=== PATIENT | female | born 1950 | race Caucasian/White ===

== ENCOUNTER 2020-02-01 01:32 | Inpatient (IN) | payer MEDICARE, OTHER ==
[2020-02-01 01:50] LABS: Glucose,Whole Blood 265 mg/dL (75-99)
[2020-02-01] MEDS ORDERED: SODIUM CHLORIDE 0.9% 1,000 ML IV ONE (02:01)
--- NOTE | 2020-02-01 02:05 | ED ---
Altered Mental Status HPI - General Chief Complaint: Altered Mental Status Stated Complaint: Altered Mental Status Time Seen by Provider: 02/01/20 01:38 Source: patient, EMS Mode of arrival: EMS Limitations: altered mental status - History of Present Illness Initial Comments: Indira is a 70 yo female brought to the ER today for altered mental status. Upon arrival patient is awake, alert to self only, repeatedly states that she needs to leave to get to choir practice. Other arrived at bedside to provide further history she reports her mother lives with her due to a stroke that she had in October of this year, stroke resulted in expressive aphasia. She reports that mother seemed to be in usual state of health throughout the day yesterday, went to bed around 7 PM, woke up somewhat agitated didn't seem to be herself at which time EMS was called. Daughter states that her mother hasn't had any labs since she was hospitalized in October but believes they were normal then. Uncertain of mother's further history. States the mother lost her fingers in a traumatic injury not due to any vasculopathy. - Related Data Allergies Allergy/AdvReac Type Severity Reaction Status Date / Time No Known Allergies Allergy Verified 02/01/20 02:02 Review of Systems ROS Statement: Those systems with pertinent positive or pertinent negative responses have been documented in the HPI. ROS Other: All systems not noted in ROS Statement are negative. Past Medical History Past Medical History: Unable to Obtain History of Any Multi-Drug Resistant Organisms: Unobtainable Past Surgical History: Unable to Obtain Past Psychological History: Unable to Obtain Past Alcohol Use History: Unable to Obtain Past Drug Use History: Unable to Obtain General Exam - General Exam Comments Initial Comments: Physical Exam GENERAL: Elderly female in no obvious distress, does not appear to be in pain Appears dehydrated HENT: Normocephalic, Atraumatic. EYES: PERRL, EOMI Conjunctival pallor PULMONARY: Unlabored respirations. No audible rales rhonchi or wheezing was noted. CARDIOVASCULAR: RRR ABDOMEN: Soft and nontender with normal bowel sounds. SKIN: Skin is clear with no lesions or rashes and otherwise unremarkable. Skin dry with tenting ntoed : Normal external genitalia NEUROLOGIC: Patient is alert and oriented to self Non-sensical speech MUSCULOSKELETAL: Normal extremities with adequate strength and full range of motion. No lower extremity swelling or edema. Finger amputations bilateral hands PSYCHIATRIC: Unable to assess Limitations: altered mental status Course Vital Signs 02/01/20 02/01/20 02/01/20 01:37 03:27 04:07 Temperature 97.7 F 97.6 F Pulse Rate 65 65 63 Respiratory 16 16 16 Rate Blood Pressure 118/67 158/65 155/75 O2 Sat by Pulse 98 98 100 Oximetry 02/01/20 02/01/20 02/01/20 04:17 04:47 05:11 Temperature 96.2 F L Pulse Rate 83 84 74 Respiratory 16 17 17 Rate Blood Pressure 187/70 188/96 172/70 O2 Sat by Pulse 100 100 100 Oximetry 02/01/20 05:19 Temperature 97.0 F L Pulse Rate 84 Respiratory 20 Rate Blood Pressure 174/82 O2 Sat by Pulse 100 Oximetry Medical Decision Making - Medical Decision Making Patient was seen and evaluated, history was obtained from EMS, patient provides minimal history due to stroke expresses aphasia and altered mental status Labs EKG and imaging were obtained Labs with multiple significant abnormalities including significant anemia im provement of 6, elevated troponin at 2.5 Given the patient has a significant anemia, heparin will not be started for the elevated troponin, transfusion will be initiated CT angiography of the chest abdomen and pelvis was ordered to ensure there is no evidence of a dissection or active bleeding in the abdomen, this resulted with no acute findings Repeat EKGs with persistent ST depressions consistent with ischemia without signs of acute infarction Blood transfusion was initiated Patient care was discussed with cardiology service loss control consultant Dr. Harmon who agrees with and for supportive care, blood transfusion, nitro for hypertension, by mouth beta blockers repeat labs in the morning - Lab Data Result diagrams: 02/01/20 02:15 02/01/20 02:15 Lab Results 02/01/20 02/01/20 02/01/20 Range/Units 01:39 02:15 02:15 WBC 16.1 H (3.8-10.6) k/uL RBC 2.77 L (3.80-5.40) m/uL Hgb 6.0 L* (11.4-16.0) gm/dL Hct 22.4 L (34.0-46.0) % MCV 80.6 (80.0-100.0) fL MCH 21.7 L (25.0-35.0) pg MCHC 26.9 L (31.0-37.0) g/dL RDW 17.0 H (11.5-15.5) % Plt Count 481 H (150-450) k/uL Neutrophils % 87 % Lymphocytes % 7 % Monocytes % 5 % Eosinophils % 0 % Basophils % 0 % Neutrophils # 14.0 H (1.3-7.7) k/uL Lymphocytes # 1.1 (1.0-4.8) k/uL Monocytes # 0.8 (0-1.0) k/uL Eosinophils # 0.1 (0-0.7) k/uL Basophils # 0.1 (0-0.2) k/uL Manual Slide Review Performed Polychromasia Present Hypochromasia Marked Poikilocytosis Moderate Poikilocytosis (manual Present Anisocytosis Slight Microcytosis Slight Target Cells Present PT (9.0-12.0) sec INR (<1.2) APTT (22.0-30.0) sec Sodium 140 (137-145) mmol/L Potassium 3.9 (3.5-5.1) mmol/L Chloride 111 H (98-107) mmol/L Carbon Dioxide 19 L (22-30) mmol/L Anion Gap 10 mmol/L BUN 18 H (7-17) mg/dL Creatinine 0.87 (0.52-1.04) mg/dL Est GFR (CKD-EPI)AfAm 78 (>60 ml/min/1.73 sqM) Est GFR (CKD-EPI)NonAf 67 (>60 ml/min/1.73 sqM) Glucose 247 H (74-99) mg/dL POC Glucose (mg/dL) 265 H (75-99) mg/dL POC Glu Cloth Folder Machine ID Paige Muir Calcium 8.4 (8.4-10.2) mg/dL Total Bilirubin 0.4 (0.2-1.3) mg/dL AST 177 H (14-36) U/L ALT 132 H (4-34) U/L Alkaline Phosphatase 111 (38-126) U/L Troponin I (0.000-0.034) ng/mL Total Protein 6.0 L (6.3-8.2) g/dL Albumin 3.4 L (3.5-5.0) g/dL Urine Color Urine Appearance (Clear) Urine pH (5.0-8.0) Ur Specific Barnard (1.001-1.035) Urine Protein (Negative) Urine Glucose (UA) (Negative) Urine Ketones (Negative) Urine Blood (Negative) Urine Nitrite (Negative) Urine Bilirubin (Negative) Urine Urobilinogen (<2.0) mg/dL Ur Leukocyte Esterase (Negative) Urine RBC (0-5) /hpf Urine WBC (0-5) /hpf Urine Opiates Screen (NotDetected) Ur Oxycodone Screen (NotDetected) Urine Methadone Screen (NotDetected) Ur Propoxyphene Screen (NotDetected) Ur Barbiturates Screen (NotDetected) U Tricyclic Antidepress (NotDetected) Ur Phencyclidine Scrn (NotDetected) Ur Amphetamines Screen (NotDetected) U Methamphetamines Scrn (NotDetected) U Benzodiazepines Scrn (NotDetected) Urine Cocaine Screen (NotDetected) U Marijuana (THC) Screen (NotDetected) Blood Type Blood Type Confirm Blood Type Recheck Bld Type Recheck Status Antibody Screen Crossmatch Spec Expiration Date 02/01/20 02/01/20 02/01/20 Range/Units 02:15 02:45 02:46 WBC (3.8-10.6) k/uL RBC (3.80-5.40) m/uL Hgb (11.4-16.0) gm/dL Hct (34.0-46.0) % MCV (80.0-100.0) fL MCH (25.0-35.0) pg MCHC (31.0-37.0) g/dL RDW (11.5-15.5) % Plt Count (150-450) k/uL Neutrophils % % Lymphocytes % % Monocytes % % Eosinophils % % Basophils % % Neutrophils # (1.3-7.7) k/uL Lymphocytes # (1.0-4.8) k/uL Monocytes # (0-1.0) k/uL Eosinophils # (0-0.7) k/uL Basophils # (0-0.2) k/uL Manual Slide Review Polychromasia Hypochromasia Poikilocytosis Poikilocytosis (manual Anisocytosis Microcytosis Target Cells PT (9.0-12.0) sec INR (<1.2) APTT (22.0-30.0) sec Sodium (137-145) mmol/L Potassium (3.5-5.1) mmol/L Chloride (98-107) mmol/L Carbon Dioxide (22-30) mmol/L Anion Gap mmol/L BUN (7-17) mg/dL Creatinine (0.52-1.04) mg/dL Est GFR (CKD-EPI)AfAm (>60 ml/min/1.73 sqM) Est GFR (CKD-EPI)NonAf (>60 ml/min/1.73 sqM) Glucose (74-99) mg/dL POC Glucose (mg/dL) (75-99) mg/dL POC Glu Cloth Folder Machine ID Calcium (8.4-10.2) mg/dL Total Bilirubin (0.2-1.3) mg/dL AST (14-36) U/L ALT (4-34) U/L Alkaline Phosphatase (38-126) U/L Troponin I 2.560 H* (0.000-0.034) ng/mL Total Protein (6.3-8.2) g/dL Albumin (3.5-5.0) g/dL Urine Color Yellow Urine Appearance Clear (Clear) Urine pH 5.5 (5.0-8.0) Ur Specific Barnard 1.021 (1.001-1.035) Urine Protein 1+ H (Negative) Urine Glucose (UA) Negative (Negative) Urine Ketones Negative (Negative) Urine Blood Small H (Negative) Urine Nitrite Negative (Negative) Urine Bilirubin Negative (Negative) Urine Urobilinogen 2.0 (<2.0) mg/dL Ur Leukocyte Esterase Negative (Negative) Urine RBC <1 (0-5) /hpf Urine WBC 1 (0-5) /hpf Urine Opiates Screen Not Detected (NotDetected) Ur Oxycodone Screen Not Detected (NotDetected) Urine Methadone Screen Not Detected (NotDetected) Ur Propoxyphene Screen Not Detected (NotDetected) Ur Barbiturates Screen Not Detected (NotDetected) U Tricyclic Antidepress Not Detected (NotDetected) Ur Phencyclidine Scrn Not Detected (NotDetected) Ur Amphetamines Screen Not Detected (NotDetected) U Methamphetamines Scrn Not Detected (NotDetected) U Benzodiazepines Scrn Detected H (NotDetected) Urine Cocaine Screen Not Detected (NotDetected) U Marijuana (THC) Screen Not Detected (NotDetected) Blood Type Blood Type Confirm A Negative Blood Type Recheck Bld Type Recheck Status Antibody Screen Crossmatch Spec Expiration Date 02/01/20 02/01/20 Range/Units 02:50 02:53 WBC (3.8-10.6) k/uL RBC (3.80-5.40) m/uL Hgb (11.4-16.0) gm/dL Hct (34.0-46.0) % MCV (80.0-100.0) fL MCH (25.0-35.0) pg MCHC (31.0-37.0) g/dL RDW (11.5-15.5) % Plt Count (150-450) k/uL Neutrophils % % Lymphocytes % % Monocytes % % Eosinophils % % Basophils % % Neutrophils # (1.3-7.7) k/uL Lymphocytes # (1.0-4.8) k/uL Monocytes # (0-1.0) k/uL Eosinophils # (0-0.7) k/uL Basophils # (0-0.2) k/uL Manual Slide Review Polychromasia Hypochromasia Poikilocytosis Poikilocytosis (manual Anisocytosis Microcytosis Target Cells PT 10.2 (9.0-12.0) sec INR 1.0 (<1.2) APTT 15.6 L (22.0-30.0) sec Sodium (137-145) mmol/L Potassium (3.5-5.1) mmol/L Chloride (98-107) mmol/L Carbon Dioxide (22-30) mmol/L Anion Gap mmol/L BUN (7-17) mg/dL Creatinine (0.52-1.04) mg/dL Est GFR (CKD-EPI)AfAm (>60 ml/min/1.73 sqM) Est GFR (CKD-EPI)NonAf (>60 ml/min/1.73 sqM) Glucose (74-99) mg/dL POC Glucose (mg/dL) (75-99) mg/dL POC Glu Cloth Folder Machine ID Calcium (8.4-10.2) mg/dL Total Bilirubin (0.2-1.3) mg/dL AST (14-36) U/L ALT (4-34) U/L Alkaline Phosphatase (38-126) U/L Troponin I (0.000-0.034) ng/mL Total Protein (6.3-8.2) g/dL Albumin (3.5-5.0) g/dL Urine Color Urine Appearance (Clear) Urine pH (5.0-8.0) Ur Specific Barnard (1.001-1.035) Urine Protein (Negative) Urine Glucose (UA) (Negative) Urine Ketones (Negative) Urine Blood (Negative) Urine Nitrite (Negative) Urine Bilirubin (Negative) Urine Urobilinogen (<2.0) mg/dL Ur Leukocyte Esterase (Negative) Urine RBC (0-5) /hpf Urine WBC (0-5) /hpf Urine Opiates Screen (NotDetected) Ur Oxycodone Screen (NotDetected) Urine Methadone Screen (NotDetected) Ur Propoxyphene Screen (NotDetected) Ur Barbiturates Screen (NotDetected) U Tricyclic Antidepress (NotDetected) Ur Phencyclidine Scrn (NotDetected) Ur Amphetamines Screen (NotDetected) U Methamphetamines Scrn (NotDetected) U Benzodiazepines Scrn (NotDetected) Urine Cocaine Screen (NotDetected) U Marijuana (THC) Screen (NotDetected) Blood Type A Negative Blood Type Confirm Blood Type Recheck No Previous Record Bld Type Recheck Status CABO Indicated Antibody Screen NEGATIVE Crossmatch See Detail Spec Expiration Date 02/04/2020 - 7079 - EKG Data -: EKG Interpreted by Me EKG Comments: EKG #1 ordered for altered mental status, initial EKG ordered and 2:09 AM, rate 60, rhythm is sinus normal axis, KY is 126, QRS is 90, QTC is prolonged at [address] depressions in the anterior lateral leads and lead 1 and V2 through V6. No acute ST depressions no evidence of acute infarction. EKG concerning for ischemic changes. EKG #2 obtained due to elevated troponin, repeat EKG obtained at 4:25 AM, rate is 82, rhythm is sinus there is normal axis, KY 154, QRS 90, QTC prolonged at 493, there are ST depressions in the anterior lateral leads no obvious ST elevations again EKG concerning for ischemia no evidence of acute infarction. No significant change from EKG obtained upon arrival. EKG#3 obtained due to concern for change in rhythm on monitor, EKG obtained at 5:06 AM, rate is 80 rhythm is sinus there is normal axis, KY 138, QRS 90, QTC remains prolonged at 493, persistent ST depressions in the lateral leads most prominent in V3 through V6 no acute ST elevations. EKG again concerning for ischemia without acute infarction. No significant change from previous. No change in rhythm. Critical Care Time Critical Care Time: Yes Total Critical Care Time: 30 Critical Care Time: Critical Care Time Critical care time was exclusive of separately billable procedures and treating other patients and teaching time. Critical care was necessary to treat or prevent imminent or life-threatening deterioration. Given the critical condition in which the patient arrived, the patient was immediately assessed by myself and the nurse, and cardiac monitoring initiated due to the potential for rapid decompensation of the patient's clinical condition. During the course of the patients stay, I spent a considerable amount of time at the bedside performing serial re-evaluations of the patient's hemodynamic and clinical status because of the recognized potential threat to life or limb in this condition. I then had a chance to review not only all of the available current laboratory and radiographic studies obtained today, but I also reviewed old records available to me at the time. Additionally, any ancillary information available including sequins stringer records were reviewed. Sequential vital signs were obtained. Disposition Clinical Impression: Acute anemia, NSTEMI (non-ST elevated myocardial infarction), HTN ( hypertension), History of stroke in prior 3 months, Expressive aphasia, Leukocytosis, Transaminitis Disposition: ADMITTED IP TO THIS HOSP Condition: Serious Is patient prescribed a controlled substance at d/c from ED?: No
[2020-02-01 02:26] LABS: Anisocytosis Slight; Basophils # (A) 0.1 k/uL (0-0.2); Basophils % (A) 0 %; Eosinophils # (A) 0.1 k/uL (0-0.7); Eosinophils % (A) 0 %; HCT 22.4 % (34.0-46.0); Hypochromasia Marked; Lymphocytes # (A) 1.1 k/uL (1.0-4.8); Lymphocytes % (A) 7 %; MCH 21.7 pg (25.0-35.0); MCHC 26.9 g/dL (31.0-37.0); MCV 80.6 fL (80.0-100.0); Mean Platelet Volume 7.4; Microcytosis Slight; Monocytes # (A) 0.8 k/uL (0-1.0); Monocytes % (A) 5 %; Neutrophils % (A) 87 %; Platelet Count 481 k/uL (150-450); Poikilocytosis Moderate; RBC 2.77 m/uL (3.80-5.40); WBC 16.1 k/uL (3.8-10.6)
[2020-02-01 02:29] LABS: Albumin 3.4 g/dL (3.5-5.0); Calcium 8.4 mg/dL (8.4-10.2); Potassium 3.9 mmol/L (3.5-5.1); Total Bilirubin 0.4 mg/dL (0.2-1.3)
--- NOTE | 2020-02-01 02:37 | XR ---
EXAMINATION TYPE: XR chest 1V portable DATE OF EXAM: 02/01/2020 COMPARISON: NONE HISTORY: Altered mental status TECHNIQUE: Single view FINDINGS: There is no heart failure nor confluent pneumonic infiltrate. Costophrenic angles are clear . Thoracic aorta is atheromatous. There is no pleural effusion. IMPRESSION: No active cardiopulmonary disease. Borderline cardiomegaly.
[2020-02-01 02:55] LABS: Poikilocytosis (M) Present; Polychromasia Present; Target Cells Present
[2020-02-01 03:00] LABS: Amphetamine Screen,Urine Not Detected (NotDetected); Barbiturate Screen,Urine Not Detected (NotDetected); Benzodiazepines Screen,Urine Detected (NotDetected); Cocaine Screen,Urine Not Detected (NotDetected); Methadone Screen, Urine Not Detected (NotDetected); Opiate Screen,Urine Not Detected (NotDetected); Oxycodone Screen, Urine Not Detected (NotDetected); Phencyclidine Screen,Urine Not Detected (NotDetected); Tricyclic Antidepressant,Urine Not Detected (NotDetected); Urn Cannabinoid Scrn Not Detected (NotDetected)
[2020-02-01 03:03] LABS: Appearance,Urine Clear (Clear); Bilirubin,Urine Negative (Negative); Blood,Urine Small (Negative); Color,Urine Yellow; Glucose,Urine (UA) Negative (Negative); Ketones,Urine Negative (Negative); Leukocyte Esterase,Urine Negative (Negative); Nitrite,Urine Negative (Negative); PH, Urine 5.5 (5.0-8.0); Protein,Urine 1+ (Negative); RBC,Urine <1 /hpf (0-5); Specific Gravity,Urine 1.021 (1.001-1.035); WBC,Urine 1 /hpf (0-5)
[2020-02-01 03:20] LABS: Prothrombin Time 10.2 sec (9.0-12.0)
[2020-02-01 03:25] LABS: Partial Thromboplastin Time 15.6 sec (22.0-30.0)
--- NOTE | 2020-02-01 03:34 | CT ---
EXAMINATION TYPE: CT brain wo con DATE OF EXAM: 02/01/2020 COMPARISON: None HISTORY: AMS CT DLP: 1141.4 mGycm Automated exposure control for dose reduction was used. There is moderate patchy hypodensity in the periventricular white matter. There is cerebral cortical atrophy. There is no mass effect nor midline shift. There is no evidence of intracranial hemorrhage. There is more focal hypodensity in the left posterior temporal lobe white matter consistent with old lacunar infarct. Calvarium is intact. IMPRESSION: Cerebral atrophy. 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 Old 5 mm lacunar inf arct anterior left thalamus. Chronic small vessel ischemia. No intracranial hemorrhage.
--- NOTE | 2020-02-01 03:45 | CT ---
EXAMINATION TYPE: CT angio thor/abd pel aorta DATE OF EXAM: 02/01/2020 COMPARISON: None HISTORY: R/O AAA, Low Hemoglobin CT DLP: 1920.10 mGycm Automated exposure control for dose reduction was used. CONTRAST: Performed with IV Contrast, patient injected with 100 mL of Isovue 370. Images were obtained from the thoracic inlet to the floor the pelvis without and subsequently with in travenous contrast. There are 3-D post processed images. FINDINGS: There is some mild interstitial infiltrate and atelectasis at the posterior lung bases. Heart is enla rged. There is no evidence of a pulmonary mass. There is no pericardial effusion. There is no pleural effusion. There is no evidence of filling defect in the pulmonary arteries. Thoracic aorta is intact . There is no thoracic aortic aneurysm or dissection. Ascending aorta measures 3.7 cm. There is arterial flow in the celiac artery and superior mesenteric artery. 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 There is approximate 50% stenos is at the origin of the superior mesenteric artery. There is bilateral arterial flow in the renal art eries. There is plaque formation and approximate 50% stenosis at the origin of both renal arteries. T here is arterial flow in the right iliac artery. There is significant plaque formation in the left il iac artery and lumen narrowing more than 95%. There is arterial flow in the left and right internal a nd external iliac arteries. There is bilateral arterial flow in the femoral arteries. There is extensive colonic diverticulosis. There is no evidence of diverticulitis. There is no mesent neha edema. There is no ascites or free air. There is no bowel obstruction. Kidneys show no hydroneph rosis. The bony pelvis is intact. The lumbar and thoracic spine are intact. Sternum is intact. I see no vertebral compression fracture. There is significant spinal stenosis at L4-5. IMPRESSION: No evidence of arterial aneurysm or dissection. There is multiple areas of moderate stenosis as above . 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 Extensive colonic diverticulosis without diverticulitis. Degenerative disc changes in the lower lumbar spine with ligamentum flavum thickening and disc bulgin g. There is moderate spinal stenosis at L4-5. There is mild stenosis at L5-S1.
[2020-02-01] MEDS ORDERED: MORPHINE SULFATE 4 MG/ML SYRINGE IVP STA (03:53)
[2020-02-01] MEDS ORDERED: NITROGLYCERIN OINT 1 INCH/GM PACKET TOPICAL STA (04:49)
[2020-02-01] MEDS ORDERED: METOPROLOL SUCCINATE (ER) 25 MG TAB.ER.24H PO STA (04:49)
[2020-02-01] MEDS ORDERED: CLOPIDOGREL 75 MG TAB PO SCH (09:00)
--- NOTE | 2020-02-01 11:00 | ECHOF ---
Referral Reason:NSTEMI MEASUREMENTS -------- HEIGHT: 165.1 cm WEIGHT: 81.6 kg BP: 139/91 IVSd: 1.2 cm (0.6 - 1.1) LVIDd: 5.0 cm (3.9 - 5.3) LVPWd: 1.5 cm (0.6 - 1.1) IVSs: 1.6 cm LVIDs: 4.6 cm LVPWs: 1.3 cm LA Diam: 4.7 cm (2.7 - 3.8) LAESV Index (A-L): 39.64 ml/m Ao Diam: 2.7 cm (2.0 - 3.7) LA Diam: 4.5 cm (2.7 - 3.8) AV Cusp: 1.4 cm (1.5 - 2.6) EPSS: 1.0 cm MV E Babatunde: 0.89 m/s MV DecT: 276 ms MV A Babatunde: 0.75 m/s MV E/A Ratio: 1.19 RAP: 5.00 mmHg RVSP: 21.01 mmHg MV EF SLOPE: 64.00 mm/s (70 - 150) MV EXCURSION: 18.39 mm (> 18.000) FINDINGS -------- Sinus rhythm. This was a technically adequate study. The left ventricular size is normal. There is mild concentric left ventricular hypertrophy. Overa ll left ventricular systolic function is mild-moderately impaired with, an EF between 40 - 45 %. In ferior Hypokinesis Septal Hypokinesis The right ventricle is normal in size. The left atrium is markedly dilated. LA is severely dilated >40 ml/m2 The right atrial size is normal. There is mild aortic valve sclerosis. There is no evidence of aortic regurgitation. Moderate mitral regurgitation is present. Mild tricuspid regurgitation present. Right ventricular systolic pressure is normal at < 35 mmHg. There is no pulmonic regurgitation present. The aortic root size is normal. There is no pericardial effusion. CONCLUSIONS -------- 1. The left ventricular size is normal. 2. There is mild concentric left ventricular hypertrophy. 3. Overall left ventricular systolic function is mild-moderately impaired with, an EF between 40 - 45 %. 4. Inferior Hypokinesis 5. Septal Hypokinesis 6. The right ventricle is normal in size. 7. The left atrium is markedly dilated. 8. LA is severely dilated >40 ml/m2 9. The right atrial size is normal. 10. There is mild aortic valve sclerosis. 11. Moderate mitral regurgitation is present. 12. Mild tricuspid regurgitation present. 13. Right ventricular systolic pressure is normal at < 35 mmHg. [facility] [employer] PROFESSOR: Hayley Ohara RDCS
--- NOTE | 2020-02-01 11:30 | P.CRDCN ---
History of Present Illness Consult date: 02/01/20 Chief complaint: Generalized weakness History of present illness: This is a pleasant 70-year-old female patient who is somewhat poor historian wi th a past medical history significant for hypertension as well as dyslipidemia as well as history of stroke was brought to the emergency department with a change in mental status. The patient is a poor historian and she is unable to provide with any details. We consulted to see the patient because of abnormal troponin. The troponin is consistent with acute coronary syndrome as well as the EKG which showed sinus rhythm with ST changes in the inferolateral leads concerning for severe underlying coronary artery disease. During her hospital stay she underwent an echocardiogram which revealed mildly impaired LV function with EF of around 45% was evidence of moderate mitral regurgitation. More importantly, the patient was found to be anemic with a hemoglobin around 6 and currently she is in process of receiving packed RBC. No indication that the patient did have any evidence of GI bleed. No indication that the patient didn't have any symptoms of chest pain or chest discomfort or increasing in the shortness of breath. No dizziness or lightheadedness and no loss of consciousness or syncope. During this hospital stay she underwent a computed tomography scan of the chest and lower extremities and that revealed no evidence of aortic dissection but she was found to have severe disease involving the right iliac artery. Currently the patient is chest pain-free. She is on aspirin as well as statin as well as metoprolol at this point. Past Medical History Past Medical History: Unable to Obtain History of Any Multi-Drug Resistant Organisms: Unobtainable Past Surgical History: Unable to Obtain Additional Past Surgical History / Comment(s): bilateral finger amputations Past Psychological History: Unable to Obtain Past Alcohol Use History: Unable to Obtain Past Drug Use History: Unable to Obtain Medications and Allergies Home Medications Medication Instructions Recorded Confirmed Type Atorvastatin Calcium [Lipitor] 40 mg PO DAILY 02/01/20 02/01/20 History Clopidogrel [Plavix] 75 mg PO DAILY 02/01/20 02/01/20 History Levothyroxine Sodium [Synthroid] 112 mcg PO DAILY 02/01/20 02/01/20 History Lisinopril [Zestril] 10 mg PO DAILY 02/01/20 02/01/20 History Omeprazole 20 mg PO DAILY 02/01/20 02/01/20 History Allergies Allergy/AdvReac Type Severity Reaction Status Date / Time No Known Allergies Allergy Verified 02/01/20 08:13 Physical Exam Vitals: Vital Signs Temp Pulse Pulse Resp BP BP Pulse Ox 02/01/20 11:17 16 160/70 98 02/01/20 10:30 98.9 F 72 16 145/67 99 02/01/20 10:00 98.7 F 75 18 127/64 98 02/01/20 09:50 99.1 F 68 16 142/58 96 02/01/20 08:00 18 02/01/20 07:51 98.9 F 76 16 174/86 97 02/01/20 06:47 98.3 F 95 16 139/91 100 02/01/20 05:40 97.3 F L 91 16 159/87 100 02/01/20 05:19 97.0 F L 84 20 174/82 100 02/01/20 05:11 74 17 172/70 100 02/01/20 04:47 96.2 F L 84 17 188/96 100 02/01/20 04:17 83 16 187/70 100 02/01/20 04:07 97.6 F 63 16 155/75 100 02/01/20 03:27 97.7 F 65 16 158/65 98 02/01/20 01:37 65 16 118/67 98 Intake and Output 01/31/20 02/01/20 02/01/20 22:59 06:59 14:59 Intake Total 310 90 Output Total 50 Balance 260 90 Intake: Oral 90 Blood Product 310 0 Rc As-1 Unit 0 [id number] Rc As-1 Unit 310 [id number] Output: Urine 50 Straight 50 Other: Voiding Method Diaper # Voids 0 Weight 81.647 kg - Constitutional General appearance: no acute distress - Respiratory Respiratory: bilateral: CTA - Cardiovascular Rhythm: regular Heart sounds: normal: S1, S2 Results 02/01/20 02:15 02/01/20 02:15 Cardiac Enzymes 02/01/20 02/01/20 02/01/20 Range/Units 02:15 02:15 06:10 AST 177 H (14-36) U/L Troponin I 2.560 H* 11.800 H* (0.000-0.034) ng/mL 02/01/20 Range/Units 07:57 AST (14-36) U/L Troponin I 17.900 H* (0.000-0.034) ng/mL Coagulation 02/01/20 Range/Units 02:50 PT 10.2 (9.0-12.0) sec APTT 15.6 L (22.0-30.0) sec CBC 02/01/20 Range/Units 02:15 WBC 16.1 H (3.8-10.6) k/uL RBC 2.77 L (3.80-5.40) m/uL Hgb 6.0 L* (11.4-16.0) gm/dL Hct 22.4 L (34.0-46.0) % Plt Count 481 H (150-450) k/uL Comprehensive Metabolic Panel 02/01/20 Range/Units 02:15 Sodium 140 (137-145) mmol/L Potassium 3.9 (3.5-5.1) mmol/L Chloride 111 H (98-107) mmol/L Carbon Dioxide 19 L (22-30) mmol/L BUN 18 H (7-17) mg/dL Creatinine 0.87 (0.52-1.04) mg/dL Glucose 247 H (74-99) mg/dL Calcium 8.4 (8.4-10.2) mg/dL AST 177 H (14-36) U/L ALT 132 H (4-34) U/L Alkaline Phosphatase 111 (38-126) U/L Total Protein 6.0 L (6.3-8.2) g/dL Albumin 3.4 L (3.5-5.0) g/dL Current Medications Generic Name Dose Route Start Last Admin Trade Name Freq PRN Reason Stop Dose Admin Aspirin 325 mg 02/02/20 09:00 Aspirin PO DAILY DEDRA Atorvastatin Calcium 40 mg 02/01/20 21:00 Lipitor PO HS DEDRA Levothyroxine Sodium 112 mcg 02/02/20 06:30 Synthroid PO DAILY@0630 DEDRA Pantoprazole Sodium 40 mg 02/01/20 21:00 Protonix IVP BID DEDRA Intake and Output 01/31/20 02/01/20 02/01/20 22:59 06:59 14:59 Intake Total 310 90 Output Total 50 Balance 260 90 Intake: Oral 90 Blood Product 310 0 Rc As-1 Unit 0 [id number] Rc As-1 Unit 310 [id number] Output: Urine 50 Straight 50 Other: Voiding Method Diaper # Voids 0 Weight 81.647 kg 02/01/20 02:15 02/01/20 02:15 Assessment and Plan Assessment: Assessment #1 acute coronary syndrome #2 severe anemia #3 hypertension #4 dyslipidemia #5 history of CVA #6 change in mental status Plan #1 consider conservative medical approach at this point in view of the low hemoglobin #2 continue the current medical regimen including aspirin as well as metoprolol as well as a statin #3 the echo was reviewed and revealed mildly impaired LV function #4 rule out GI bleeding #5 follow-up with the patient
--- NOTE | 2020-02-01 11:49 | P.HPIM ---
History of Present Illness This is a pleasant 70 years old female with unknown past medical history presents with altered mental status. As per documents patient has recent history of stroke with expressive aphasia about 3 months ago. Patient is poor historian. She is fully awake and she follows commands however she hardly can answer with any bernal. However she can't tell me she has some chest pain. However she denies abdominal pain, she complains also from left leg pain although the leg does not look ischemic as not pale or cold and pulsation is present On presentation, patient is afebrile, so Vitas looks stable, she is saturating 99% on 2 L oxygen via nasal cannula, and 98% on room air. Labs showing severe anemia with hemoglobin of 6.0, increased WBC of 16.1 K, platelets is elevated at 481, INR is 1.0. Creatinine and electrolytes are normal. Sugar is elevated to 65-to 47. Liver enzymes slightly elevated AST and 177 and ALT 132 Elevated troponin 2.5, 11.8 and 17.9. UA is not suspicious of infection and urine drug screen is negative except for benzodiazepines EKG showing normal sinus rhythm with ST depression in the anterolateral leads from V3-V6, and lead I Thoracic and abdominal aortic angiogram: No evidence of arterial aneurysm or dissection, multiple areas of moderate stenosis and more critical stenosis and left common iliac artery with approximately 95% occluded, extensive diverticulosis without diverticulitis, degenerative disc disease CT of the brain: Cerebral atrophy, old lacunar infarct in the left temporal lobe and left thalamus. Chest x-ray: No acute processes by radiologist Customer Service Professional team has already been contacted by the emergency room team. In the emergency room patient was continued with aspirin and Plavix, she got one unit of blood transfusion and placed on Protonix 40 mg IV twice a day Echocardiogram showing 40-45% with mild LVH more inferior and septal hypokinesia, moderate mitral regurgitation Review of Systems n/a Past Medical History Past Medical History: Unable to Obtain History of Any Multi-Drug Resistant Organisms: Unobtainable Past Surgical History: Unable to Obtain Additional Past Surgical History / Comment(s): bilateral finger amputations Past Psychological History: Unable to Obtain Past Alcohol Use History: Unable to Obtain Past Drug Use History: Unable to Obtain Medications and Allergies Home Medications Medication Instructions Recorded Confirmed Type Atorvastatin Calcium [Lipitor] 40 mg PO DAILY 02/01/20 02/01/20 History Clopidogrel [Plavix] 75 mg PO DAILY 02/01/20 02/01/20 History Levothyroxine Sodium [Synthroid] 112 mcg PO DAILY 02/01/20 02/01/20 History Lisinopril [Zestril] 10 mg PO DAILY 02/01/20 02/01/20 History Omeprazole 20 mg PO DAILY 02/01/20 02/01/20 History Allergies Allergy/AdvReac Type Severity Reaction Status Date / Time No Known Allergies Allergy Verified 02/01/20 08:13 Physical Exam Vitals: Vital Signs Temp Pulse Pulse Resp BP BP Pulse Ox 02/01/20 10:30 98.9 F 72 16 145/67 99 02/01/20 10:00 98.7 F 75 18 127/64 98 02/01/20 09:50 99.1 F 68 16 142/58 96 02/01/20 08:00 18 02/01/20 07:51 98.9 F 76 16 174/86 97 02/01/20 06:47 98.3 F 95 16 139/91 100 02/01/20 05:40 97.3 F L 91 16 159/87 100 02/01/20 05:19 97.0 F L 84 20 174/82 100 02/01/20 05:11 74 17 172/70 100 02/01/20 04:47 96.2 F L 84 17 188/96 100 02/01/20 04:17 83 16 187/70 100 02/01/20 04:07 97.6 F 63 16 155/75 100 02/01/20 03:27 97.7 F 65 16 158/65 98 02/01/20 01:37 65 16 118/67 98 Intake and Output 01/31/20 02/01/20 02/01/20 22:59 06:59 14:59 Intake Total 310 90 Output Total 50 Balance 260 90 Intake: Oral 90 Blood Product 310 0 Rc As-1 Unit 0 [id number] Rc As-1 Unit 310 [id number] Output: Urine 50 Straight 50 Other: Voiding Method Diaper # Voids 0 Weight 81.647 kg -GENERAL: The patient is alert, but dysarthric. She follows commands. HEENT: Pupils are round and equally reacting to light. EOMI. No scleral icterus. No conjunctival pallor. Normocephalic, atraumatic. No pharyngeal erythema. No thyromegaly. CARDIOVASCULAR: S1 and S2 present. No murmurs, rubs, or gallops. PULMONARY: Chest is clear to auscultation, no wheezing or crackles. ABDOMEN: Soft, nontender, nondistended, normoactive bowel sounds. No palpable organomegaly. MUSCULOSKELETAL: No joint swelling or deformity. EXTREMITIES: No cyanosis, clubbing, or pedal edema. NEUROLOGICAL: Gross neurological examination did not reveal any focal deficits. SKIN: No rashes. No petechiae Results CBC & Chem 7: 02/01/20 02:15 02/01/20 02:15 Labs: Abnormal Lab Results - Last 24 Hours (Table) 02/01/20 02/01/20 02/01/20 Range/Units 01:39 02:15 02:15 WBC 16.1 H (3.8-10.6) k/uL RBC 2.77 L (3.80-5.40) m/uL Hgb 6.0 L* (11.4-16.0) gm/dL Hct 22.4 L (34.0-46.0) % MCH 21.7 L (25.0-35.0) pg MCHC 26.9 L (31.0-37.0) g/dL RDW 17.0 H (11.5-15.5) % Plt Count 481 H (150-450) k/uL Neutrophils # 14.0 H (1.3-7.7) k/uL APTT (22.0-30.0) sec Chloride 111 H (98-107) mmol/L Carbon Dioxide 19 L (22-30) mmol/L BUN 18 H (7-17) mg/dL Glucose 247 H (74-99) mg/dL POC Glucose (mg/dL) 265 H (75-99) mg/dL AST 177 H (14-36) U/L ALT 132 H (4-34) U/L Troponin I (0.000-0.034) ng/mL Total Protein 6.0 L (6.3-8.2) g/dL Albumin 3.4 L (3.5-5.0) g/dL Urine Protein (Negative) Urine Blood (Negative) U Benzodiazepines Scrn (NotDetected) Crossmatch 02/01/20 02/01/20 02/01/20 Range/Units 02:15 02:46 02:50 WBC (3.8-10.6) k/uL RBC (3.80-5.40) m/uL Hgb (11.4-16.0) gm/dL Hct (34.0-46.0) % MCH (25.0-35.0) pg MCHC (31.0-37.0) g/dL RDW (11.5-15.5) % Plt Count (150-450) k/uL Neutrophils # (1.3-7.7) k/uL APTT 15.6 L (22.0-30.0) sec Chloride (98-107) mmol/L Carbon Dioxide (22-30) mmol/L BUN (7-17) mg/dL Glucose (74-99) mg/dL POC Glucose (mg/dL) (75-99) mg/dL AST (14-36) U/L ALT (4-34) U/L Troponin I 2.560 H* (0.000-0.034) ng/mL Total Protein (6.3-8.2) g/dL Albumin (3.5-5.0) g/dL Urine Protein 1+ H (Negative) Urine Blood Small H (Negative) U Benzodiazepines Scrn Detected H (NotDetected) Crossmatch 02/01/20 02/01/20 02/01/20 Range/Units 02:53 06:10 07:57 WBC (3.8-10.6) k/uL RBC (3.80-5.40) m/uL Hgb (11.4-16.0) gm/dL Hct (34.0-46.0) % MCH (25.0-35.0) pg MCHC (31.0-37.0) g/dL RDW (11.5-15.5) % Plt Count (150-450) k/uL Neutrophils # (1.3-7.7) k/uL APTT (22.0-30.0) sec Chloride (98-107) mmol/L Carbon Dioxide (22-30) mmol/L BUN (7-17) mg/dL Glucose (74-99) mg/dL POC Glucose (mg/dL) (75-99) mg/dL AST (14-36) U/L ALT (4-34) U/L Troponin I 11.800 H* 17.900 H* (0.000-0.034) ng/mL Total Protein (6.3-8.2) g/dL Albumin (3.5-5.0) g/dL Urine Protein (Negative) Urine Blood (Negative) U Benzodiazepines Scrn (NotDetected) Crossmatch See Detail Assessment and Plan Assessment: Acute non-STEMI Ischemic cardiomyopathy with ejection fraction 40-45% with inferior and septal hypokinesia Severe anemia, present on admission Moderate mitral regurgitation 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 Continue with serial troponins and EKG. Cardiology consult. Customer Service Professional recommended continue with conservative management as she has low hemoglobin. Echocardiogram. Also we'll do anemia workup and consult GI team . Also consult vascular team for her left common iliac artery stenosis . Labs and medication were reviewed.. Continue same treatment. Continue with symptomatic treatment. Resume home medication. Monitor lytes and vitals. DVT and GI prophylaxis. Further recommendations of the clinical course of the patient DVT prophyla: No heparin in view of severe anemia GI Prophylaxis: Ppi PT/OT: Pending Prognosis is guarded
--- NOTE | 2020-02-01 13:43 | P.GSCN ---
History of Present Illness Consult date: 02/01/20 Reason for Consult: Left iliac artery stenosis History of present illness: This is a pleasant 70-year-old female who came into the emergency department yesterday for altered mental status changes. The patient is a very poor historian and continues to demonstrate altered mental status changes and therefore unable to obtain medical history. When patient is asked if she is having any pain in her lower extremities patient states "I don't know", if asked if any abdominal pain, nausea, vomiting, or rectal bleeding patient states "I don't know." According to the medical chart patient has a history of a CVA approximately 4 years ago with residual expressive aphasia, is currently maintained on Plavix. Patient is also on lisinopril, Lipitor, omeprazole, and Synthroid. Patient had elevated troponins and an EKG which showed sinus rhythm with ST changes in the inferolateral leads concerning for severe underlying coronary artery disease. She underwent an echocardiogram which revealed mildly impaired LV function with EF of around 45% with evidence of moderate mitral regurgitation. The patient was also found to be anemic with a hemoglobin of 6.0 and is currently receiving her second unit of packed red blood cells. According to the nurse there are no signs of any GI bleed. The patient did receive her Plavix this morning. CT angiogram thoracic abdomen and pelvis, aorta was findings of mild interstitial infiltrate and anterolisthesis at the posterior lung bases. Heart is enlarged. There is no evidence of pulmonary mass. There is no pericardial effusion. There is no pleural effusion. No evidence of filling defect in the pulmonary arteries. The thoracic aorta is intact. There is no thoracic aortic aneurysm or dissection. Ascending aorta measures 3.7 cm. There is arterial flow in the celiac artery and superior mesenteric artery. There is significant plaque at the origin of the celiac artery and approximately 70% stenosis. There is approximate 50% stenosis at the origin of the superior mesenteric artery. There is bilateral arterial flow in the renal arteries. There is plaque formation approximately 50% stenosis at the origin of both renal arteries. There is arterial flow in the right iliac artery. There is significant plaque formation in the left iliac artery and lumen narrowing more than 95%. There is arterial flow in the left and right internal and sternal iliac arteries. There is bilateral arterial flow in the femoral arteries. There is extensive colonic diverticulosis. There is no evidence of diverticulitis there's no mesenteric edema. No ascites or free air. No bowel obstruction. Kidney show no true nephrosis. CT of brain without contrast showed cerebral atrophy. 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 Old 5 mmlacuar infarct anterior left thalamus. Chronic small vessel ischemia no intracranial hemorrhage Review of Systems Review systems was unable to be completed due to patient's confusion and mental status changes Past Medical History Past Medical History: Unable to Obtain History of Any Multi-Drug Resistant Organisms: Unobtainable Past Surgical History: Unable to Obtain Additional Past Surgical History / Comment(s): bilateral finger amputations Past Psychological History: Unable to Obtain Past Alcohol Use History: Unable to Obtain Past Drug Use History: Unable to Obtain - Past Family History Mother Additional Family Medical History / Comment(s): hepatitis. Brother(s) Additional Family Medical History / Comment(s): hepatitis. Medications and Allergies Home Medications Medication Instructions Recorded Confirmed Type Atorvastatin Calcium [Lipitor] 40 mg PO DAILY 02/01/20 02/01/20 History Clopidogrel [Plavix] 75 mg PO DAILY 02/01/20 02/01/20 History Levothyroxine Sodium [Synthroid] 112 mcg PO DAILY 02/01/20 02/01/20 History Lisinopril [Zestril] 10 mg PO DAILY 02/01/20 02/01/20 History Omeprazole 20 mg PO DAILY 02/01/20 02/01/20 History Allergies Allergy/AdvReac Type Severity Reaction Status Date / Time No Known Allergies Allergy Verified 02/01/20 08:13 Surgical - Exam Vital Signs Pulse Resp BP Pulse Ox 65 16 118/67 98 02/01/20 01:37 02/01/20 01:37 02/01/20 01:37 02/01/20 01:37 General appearance: The patient is alert, non-orientated. Obese. HET: Head is normocephalic and atraumatic. Pupils are equal and reactive. Neck: Supple without lymphadenopathy. Trachea midline. Heart: S1 S2. Regular rate and rhythm. Lungs: No crackles or wheezes are heard. Abdomen: Soft, nontender, nondistended with bowel sounds. Extremities: Normal skin color and turgor. No cyanosis, rash, ulceration, clubbing, or edema. Palpable right femoral, popliteal, PT and DP pulses. Left lower extremity audible femoral and popliteal multiphasic signal. Unable to pal gao DP or PT pulses, as well as Doppler signal of left PT or DP. Capillary refill less than 5 seconds bilaterally, bilateral lower extremities warm to touch. Patient is able to wiggle bilateral toes and move bilateral lower extremities. Neurological: Confused mentation. Patient is not answering questions appropriately. Results CT angiogram reviewed as stated in HPI CT of brain reviewed and stated in the HPI. Echocardiogram reviewed as stated in the HPI. - Labs 02/02/20 06:09 02/01/20 02:15 Abnormal Lab Results - Last 24 Hours (Table) 02/01/20 02/01/20 02/01/20 Range/Units 01:39 02:15 02:15 WBC 16.1 H (3.8-10.6) k/uL RBC 2.77 L (3.80-5.40) m/uL Hgb 6.0 L* (11.4-16.0) gm/dL Hct 22.4 L (34.0-46.0) % MCH 21.7 L (25.0-35.0) pg MCHC 26.9 L (31.0-37.0) g/dL RDW 17.0 H (11.5-15.5) % Plt Count 481 H (150-450) k/uL Neutrophils # 14.0 H (1.3-7.7) k/uL APTT (22.0-30.0) sec Chloride 111 H (98-107) mmol/L Carbon Dioxide 19 L (22-30) mmol/L BUN 18 H (7-17) mg/dL Glucose 247 H (74-99) mg/dL POC Glucose (mg/dL) 265 H (75-99) mg/dL AST 177 H (14-36) U/L ALT 132 H (4-34) U/L Troponin I (0.000-0.034) ng/mL Total Protein 6.0 L (6.3-8.2) g/dL Albumin 3.4 L (3.5-5.0) g/dL Urine Protein (Negative) Urine Blood (Negative) U Benzodiazepines Scrn (NotDetected) Crossmatch 02/01/20 02/01/20 02/01/20 Range/Units 02:15 02:46 02:50 WBC (3.8-10.6) k/uL RBC (3.80-5.40) m/uL Hgb (11.4-16.0) gm/dL Hct (34.0-46.0) % MCH (25.0-35.0) pg MCHC (31.0-37.0) g/dL RDW (11.5-15.5) % Plt Count (150-450) k/uL Neutrophils # (1.3-7.7) k/uL APTT 15.6 L (22.0-30.0) sec Chloride (98-107) mmol/L Carbon Dioxide (22-30) mmol/L BUN (7-17) mg/dL Glucose (74-99) mg/dL POC Glucose (mg/dL) (75-99) mg/dL AST (14-36) U/L ALT (4-34) U/L Troponin I 2.560 H* (0.000-0.034) ng/mL Total Protein (6.3-8.2) g/dL Albumin (3.5-5.0) g/dL Urine Protein 1+ H (Negative) Urine Blood Small H (Negative) U Benzodiazepines Scrn Detected H (NotDetected) Crossmatch 02/01/20 02/01/20 02/01/20 Range/Units 02:53 06:10 07:57 WBC (3.8-10.6) k/uL RBC (3.80-5.40) m/uL Hgb (11.4-16.0) gm/dL Hct (34.0-46.0) % MCH (25.0-35.0) pg MCHC (31.0-37.0) g/dL RDW (11.5-15.5) % Plt Count (150-450) k/uL Neutrophils # (1.3-7.7) k/uL APTT (22.0-30.0) sec Chloride (98-107) mmol/L Carbon Dioxide (22-30) mmol/L BUN (7-17) mg/dL Glucose (74-99) mg/dL POC Glucose (mg/dL) (75-99) mg/dL AST (14-36) U/L ALT (4-34) U/L Troponin I 11.800 H* 17.900 H* (0.000-0.034) ng/mL Total Protein (6.3-8.2) g/dL Albumin (3.5-5.0) g/dL Urine Protein (Negative) Urine Blood (Negative) U Benzodiazepines Scrn (NotDetected) Crossmatch See Detail Diabetes panel 02/01/20 Range/Units 02:15 Sodium 140 (137-145) mmol/L Potassium 3.9 (3.5-5.1) mmol/L Chloride 111 H (98-107) mmol/L Carbon Dioxide 19 L (22-30) mmol/L BUN 18 H (7-17) mg/dL Creatinine 0.87 (0.52-1.04) mg/dL Glucose 247 H (74-99) mg/dL Calcium 8.4 (8.4-10.2) mg/dL AST 177 H (14-36) U/L ALT 132 H (4-34) U/L Alkaline Phosphatase 111 (38-126) U/L Total Protein 6.0 L (6.3-8.2) g/dL Albumin 3.4 L (3.5-5.0) g/dL Calcium panel 02/01/20 Range/Units 02:15 Calcium 8.4 (8.4-10.2) mg/dL Albumin 3.4 L (3.5-5.0) g/dL Pituitary panel 02/01/20 Range/Units 02:15 Sodium 140 (137-145) mmol/L Potassium 3.9 (3.5-5.1) mmol/L Chloride 111 H (98-107) mmol/L Carbon Dioxide 19 L (22-30) mmol/L BUN 18 H (7-17) mg/dL Creatinine 0.87 (0.52-1.04) mg/dL Glucose 247 H (74-99) mg/dL Calcium 8.4 (8.4-10.2) mg/dL Adrenal panel 02/01/20 Range/Units 02:15 Sodium 140 (137-145) mmol/L Potassium 3.9 (3.5-5.1) mmol/L Chloride 111 H (98-107) mmol/L Carbon Dioxide 19 L (22-30) mmol/L BUN 18 H (7-17) mg/dL Creatinine 0.87 (0.52-1.04) mg/dL Glucose 247 H (74-99) mg/dL Calcium 8.4 (8.4-10.2) mg/dL Total Bilirubin 0.4 (0.2-1.3) mg/dL AST 177 H (14-36) U/L ALT 132 H (4-34) U/L Alkaline Phosphatase 111 (38-126) U/L Total Protein 6.0 L (6.3-8.2) g/dL Albumin 3.4 L (3.5-5.0) g/dL Assessment and Plan Assessment: 1. Left iliac artery occlusion approximately 95% 2. Altered mental status changes 3. Acute coronary syndrome 4. Anemia 5. History of CVA Plan: This patient was discussed with Dr. Braun. CT angiogram reviewed with Dr. Braun as well as CT of brain. CT angiogram showing 95% narrowing and plaque of the left iliac artery which is likely chronic. Patient is without any ischemia to the left lower extremity. We'll continue to monitor and can follow-up in the outpatient setting.. Would recommend holding Plavix at this time due to possible GI bleed. Appreciate recommendations per neurology and cardiology. Further recommendations to follow. Into for this consultation allowing us to take part in the plan of care of your patient during her hospital stay. The above dictated assessment and findings were discussed with Dr. Braun. The impression and plan of care have been directed as dictated.
[2020-02-01 17:28] LABS: Ferritin 20.6 ng/mL (10.0-291.0)
[2020-02-01 17:54] LABS: % Iron Saturation 7.32 (12.00-45.00); Folate, Serum 13.7 ng/mL
[2020-02-01 19:04] LABS: Anisocytosis Slight; HGB 7.4 gm/dL (11.4-16.0); Hypochromasia Marked; MCH 23.7 pg (25.0-35.0); MCHC 29.8 g/dL (31.0-37.0); MCV 79.5 fL (80.0-100.0); Mean Platelet Volume 8.1; Microcytosis Slight; Platelet Count 405 k/uL (150-450); Poikilocytosis Marked; RBC 3.14 m/uL (3.80-5.40); RDW 16.9 % (11.5-15.5); WBC 13.4 k/uL (3.8-10.6)
[2020-02-01] MEDS: PANTOPRAZOLE 40 MG/10 ML VIAL IVP SCH (20:22)
[2020-02-01] MEDS ORDERED: ATORVASTATIN 40 MG TAB PO SCH (21:00)
--- NOTE | 2020-02-01 23:28 | CONS ---
CONSULTATION DATE OF DICTATION: 02/01/2020 REASON FOR CONSULTATION: Severe symptomatic anemia. HISTORY OF PRESENT ILLNESS: The patient is a 70-year-old pleasant white female who was admitted to the hospital with altered mental status, fatigue and weakness. The patient has prior history of CVA and has some expressive aphasia for the last few months. She also has some dementia and is a very poor historian. Most of the history was obtained from the patient's chart. She came to the emergency room and was noted to have a hemoglobin 6.1. She received 2 units of PRBC transfusion. As per the nursing staff, there was no evidence of active bleeding. No nausea or vomiting. No rectal bleeding or melena. In the emergency room she was noted to have elevated troponin at 17.9 and Cardiology has been consulted, who recommended continued observation and conservative approach. PAST MEDICAL HISTORY: Her past medical history is significant for recent CVA, history of hypertension, hyperlipidemia, coronary artery disease, hypothyroidism, gastroesophageal reflux disease. PAST SURGICAL HISTORY: Cardiac catheterization with stent placement, bilateral finger amputation. ALLERGIES: NONE. SOCIAL HISTORY: Social history could not be obtained. FAMILY HISTORY: Family history could not be obtained. REVIEW OF SYSTEMS: Review of systems could not be obtained, as patient is somewhat confused. PHYSICAL EXAMINATION: She appears comfortable. No apparent distress. Vital signs are stable. Blood pressure 152/65, pulse rate 82, temperature 98.2. HEENT examination unremarkable. Conjunctivae pink. Sclerae anicteric. Oral cavity no lesions. NECK: No JVD or lymph node enlargement. CHEST: Clear to auscultation. HEART: Regular rate and rhythm. ABDOMEN: Soft. Bowel sounds are positive. No organomegaly. EXTREMITIES: No pedal edema. SKIN: No rashes. NEUROLOGIC: Awake, alert, but not to name and place. LABS: Labs done at the time of admission to the hospital showed WBC 16.1, hemoglobin 6, MCV 80, platelets 481. BUN 18, creatinine 0.80, iron 29, TIBC 396, iron saturation 7.32, ferritin 20. Troponin 17. IMPRESSION: 1. Severe symptomatic anemia and iron indices consistent with iron deficiency anemia, most likely secondary to occult gastrointestinal blood loss. Clinically no evidence of active ongoing bleeding. Hemoglobin was 6 g/dL, status post 2 units of PRBC transfusion. Repeat CBC is pending. As per her daughter, she never had an upper endoscopy, and she may have had a colonoscopy while she was living in [place] several years ago. 2. Elevated troponin. Cardiology following the patient closely. Recommended conservative approach and medical management at the present time. 3. History of coronary artery disease. 4. History of cerebrovascular accident in the past with expressive aphasia. 5. Hypothyroidism. RECOMMENDATIONS: 1. Continue Protonix 40 mg daily. 2. Will proceed with an upper endoscopy tomorrow. 3. Hold Plavix for now. 4. If the upper endoscopy is negative, will consider colonoscopy. 5. Repeat CBC in the morning. 6. Will follow with you closely. Thank you for this consultation. MMODL / IJN: [id number] /
[2020-02-02] MEDS: LEVOTHYROXINE 112 MCG TAB PO SCH (06:17)
[2020-02-02 06:39] LABS: Anisocytosis Slight; HCT 24.2 % (34.0-46.0); HGB 7.2 gm/dL (11.4-16.0); Hypochromasia Marked; MCH 23.5 pg (25.0-35.0); MCHC 29.6 g/dL (31.0-37.0); MCV 79.4 fL (80.0-100.0); Mean Platelet Volume 8.3; Microcytosis Slight; Platelet Count 347 k/uL (150-450); Poikilocytosis Marked; RBC 3.05 m/uL (3.80-5.40); RDW 18.2 % (11.5-15.5); WBC 13.4 k/uL (3.8-10.6)
[2020-02-02 06:51] LABS: Cholesterol 130 mg/dL (<200); HDL Cholesterol 42 mg/dL (40-60); LDL Cholesterol,Calculated 65 mg/dL (0-99); Triglycerides 114 mg/dL (<150)
[2020-02-02] MEDS: PANTOPRAZOLE 40 MG/10 ML VIAL IVP SCH ×2 (08:01→23:55)
[2020-02-02] MEDS: lisinopriL 10 MG TAB PO SCH (08:01)
[2020-02-02] MEDS ORDERED: ASPIRIN 325 MG TAB PO SCH (09:00)
--- NOTE | 2020-02-02 11:07 | P.CNNES ---
History of Present Illness Consult date: 02/02/20 Requesting physician: Pravin E Sheet Reason for Consult: previous stroke History of Present Illness: This is a 70-year-old female with medical history of stroke October 2019 with expressive aphasia, minimal right facial droop, former tobacco use in ALL views that stopped since stroke of October 2019, hypertension, hyperlipidemia, hypothyroidism who presented to the ED on 02/01/2020 because the patient was in pain and could not sit up. History was obtained by the daughter, Katelin Cartagena spoke over the phone. She stated the patient was doing well on 01/31/2020 at 7 PM and went to bed, then around just past midnight the patient was screaming for help and stating that she was in pain patient's was not able to sit up. The family noticed that she had a fecal incontinence. Per the daughters at the patient did not have any altered mental status, no foaming around the mouth. There is no history of seizures. Patient U was a heavy smoker and used to smoke between 1-3 packs a day and she's been smoking for 55 years but stopped since the stroke. She was also heavy drinker as well as she stopped that since October 2019. For her strokes and she was on aspirin 81 mg, Plavix 75 mg and Lipitor 40 mg. The Aspirin she was on what she was on it and every other day or once every 3 days since the daughter felt was making her cold. Patient did have the stroke workup at [place] where she was living and was living there for at least 7 years after the stroke that her daughter brought her back to [place]. In the hospital the patient had a CT of the head on 02/01/2020 which were was reported as a cerebral atrophy. Showed old lacunar infarct in the left posterior temporal lobe white matter. Old 5 mm lacunar infarct anterior left thalamus. Chronic small vessel ischemia. No intracranial hemorrhage. EKG showed the normal sinus rhythm. Ventricular rate of 82. Cannot rule out inferior infarct, age undetermined. ST and T-wave abnormality consider lateral ischemia. Echocardiogram showed left ventricular size is normal. There is mild concentric left ventricular hypertrophy. Impression fraction is 40-45%. Inferior h ypokinesis. Septal hypokinesis. The left atrium is severely dilated. On presentation her white blood cells was 16.1 currently is 13.4 hemoglobin was as low as 6.0 latest one is 7.2 On presentation the patient's initial blood pressure was 100/63 the heart rate was 76 respiratory was 18 and the pulse ox was 98 at room air temperature was 98.1 Fahrenheit oral. Patient's troponin is elevated on her hospital stay she presented with L with a troponin of 2.56 and that the last troponin is 17.9 cardiology is on board. 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 Regarding her baseline as she does have expressive aphasia minimal right facial droop daughter felt like she was walk-in fine but sometimes she felt like she felt like maybe the right side was minimally weak sometimes. Otherwise she was able to feed herself walk around without any assistance. Review of Systems Review of system: The 12 point system was reviewed and apparent positive and negative per HPI. Past Medical History Past Medical History: Unable to Obtain History of Any Multi-Drug Resistant Organisms: Unobtainable Past Surgical History: Unable to Obtain Additional Past Surgical History / Comment(s): bilateral finger amputations Past Anesthesia/Blood Transfusion Reactions: No Reported Reaction Past Psychological History: Unable to Obtain Past Alcohol Use History: Unable to Obtain Past Drug Use History: Unable to Obtain - Past Family History Mother Additional Family Medical History / Comment(s): hepatitis. Brother(s) Additional Family Medical History / Comment(s): hepatitis. Medications and Allergies Home Medications Medication Instructions Recorded Confirmed Type Atorvastatin Calcium [Lipitor] 40 mg PO DAILY 02/01/20 02/01/20 History Clopidogrel [Plavix] 75 mg PO DAILY 02/01/20 02/01/20 History Levothyroxine Sodium [Synthroid] 112 mcg PO DAILY 02/01/20 02/01/20 History Lisinopril [Zestril] 10 mg PO DAILY 02/01/20 02/01/20 History Omeprazole 20 mg PO DAILY 02/01/20 02/01/20 History Allergies Allergy/AdvReac Type Severity Reaction Status Date / Time No Known Allergies Allergy Verified 02/01/20 08:13 Physical Examination - Vital Signs Vital Signs: Vital Signs Temp Pulse Pulse Resp BP BP Pulse Ox 02/02/20 07:51 98.6 F 57 L 18 112/73 98 02/02/20 04:00 98.9 F 72 18 129/58 94 L 02/02/20 00:00 98.5 F 107 H 17 120/56 96 02/01/20 20:00 99.1 F 81 18 104/71 100 02/01/20 15:58 98.1 F 76 18 100/63 98 02/01/20 14:24 98.2 F 82 16 152/65 99 02/01/20 11:17 98.2 F 16 160/70 98 02/01/20 10:30 98.9 F 72 16 145/67 99 02/01/20 10:00 98.7 F 75 18 127/64 98 Intake and Output 02/01/20 02/02/20 02/02/20 22:59 06:59 14:59 Intake Total 120 10 Output Total 0 Balance 120 10 0 Intake: IV 10 .9 10 Oral 120 Output: Urine 0 Other: Voiding Method Diaper Diaper Diaper # Voids 1 0 Weight 86 kg GENERAL: The patient is lying in bed and is not in acute distress. CHEST: The heart rate is regular rate rhythm. No murmurs to auscultation. No carotid bruit bilaterally. Absent to nearly diminished in left foot pulses and cold to touch in distal lower extremity. LUNG: Clear to auscultation bilaterally no wheezing noted throughout. Not labored breathing. ABDOMEN/GI: Bowel sounds present in all 4 quadrants. No tenderness to palpation throughout. NEUROLOGICAL: Higher mental function: The patient is awake, alert, oriented to self, and stated she was in hospital. With options she could not tell me what year it was. She has expressive aphasia. She has paraphrasic error. She does follow simple commands. No neglect. Cranial nerves: The pupils are round, equal and reactive to light and accommodation. Visual teran are seems intact to threat throughout. Extraocular movement is intact no nystagmus is noted. Facial sensation was hard to assess because patient was not able to tell if both felt same or not. There is flattening of right nasolabial. Tongue is midline and moved [id number] without any difficulty. No dysarthria is noted. Shoulder shrug is normal bilaterally. Motor: Gait is defered. The right upper, lower extremity and left upper extremity are 5/5. The left lower extremity was hard to assess because patient was in pain but had antigravity, lifting left above gravity. Normal tone and bulk. Cerebellum: Normal finger to nose heel to chin bilaterally. Sensation: Sensation is normal to touch throughout. Reflexes (right/left): 2+ Plantars are downgoing bilaterally. Results AST is 177 ALTs 132 phosphatase 111 albumin is 3.4 vitamin B12 is 374 folate is 13.7 Lipid profile in the triglyceride is 114, the cholesterol is 1:30, LDL 65, HDL is 42 - Laboratory Findings CBC and BMP: 02/02/20 06:09 02/01/20 02:15 Abnormal Lab Findings: Abnormal Labs 02/01/20 02/01/20 02/01/20 01:39 02:15 02:15 WBC 16.1 H RBC 2.77 L Hgb 6.0 L* Hct 22.4 L MCV MCH 21.7 L MCHC 26.9 L RDW 17.0 H Plt Count 481 H Neutrophils # 14.0 H APTT Chloride 111 H Carbon Dioxide 19 L BUN 18 H Glucose 247 H POC Glucose (mg/dL) 265 H Iron % Saturation AST 177 H ALT 132 H Troponin I Total Protein 6.0 L Albumin 3.4 L Urine Protein Urine Blood U Benzodiazepines Scrn Crossmatch 02/01/20 02/01/20 02/01/20 02:15 02:46 02:50 WBC RBC Hgb Hct MCV MCH MCHC RDW Plt Count Neutrophils # APTT 15.6 L Chloride Carbon Dioxide BUN Glucose POC Glucose (mg/dL) Iron % Saturation AST ALT Troponin I 2.560 H* Total Protein Albumin Urine Protein 1+ H Urine Blood Small H U Benzodiazepines Scrn Detected H Crossmatch 02/01/20 02/01/20 02/01/20 02:53 06:10 07:57 WBC RBC Hgb Hct MCV MCH MCHC RDW Plt Count Neutrophils # APTT Chloride Carbon Dioxide BUN Glucose POC Glucose (mg/dL) Iron % Saturation AST ALT Troponin I 11.800 H* 17.900 H* Total Protein Albumin Urine Protein Urine Blood U Benzodiazepines Scrn Crossmatch See Detail 02/01/20 02/01/20 02/02/20 07:57 17:57 06:09 WBC 13.4 H 13.4 H RBC 3.14 L 3.05 L Hgb 7.4 L 7.2 L Hct 25.0 L 24.2 L MCV 79.5 L 79.4 L MCH 23.7 L 23.5 L MCHC 29.8 L 29.6 L RDW 16.9 H 18.2 H Plt Count Neutrophils # APTT Chloride Carbon Dioxide BUN Glucose POC Glucose (mg/dL) Iron 29 L % Saturation 7.32 L AST ALT Troponin I Total Protein Albumin Urine Protein Urine Blood U Benzodiazepines Scrn Crossmatch Assessment and Plan Assessment: This is a 70-year-old right-handed female with medical history of stroke October 2019 with expressive aphasia, minimal right facial droop, former tobacco user and alcohol user that stopped since stroke, HTN, hyperlipidemia, hypothyroidism who presented to the ED on 02/01/2020 because the patient was in pain and could not sit up. Per daughter she was not altered in mentation. On 02/01/2020 just passed midnight, patient was calling for help and was in pain and could not sit up. Her left lower extremity is cold to touch and decrease in pulse, predominately the foot. She came with elevated troponin and leukocytosis. 1. Chronic stroke (old lacunar infarct in the left posterior temporal lobe white matter. Old 5 mm lacunar infarct anterior left thalamus. Chronic small vessel ischemia). 2. Left foot is cold to touch and decreased in pulse 3. Elevated troponin due to #2 4. Leukocystosis that is resolved due to #2. Plan: There is no change in mentation and from history and physical exam, EEG is not warrented at this time. She had old stroke work-up: CT of the head on 02/01/2020 which were was reported as a cerebral atrophy. Showed old lacunar infarct in the left posterior temporal lobe white matter. Old 5 mm lacunar infarct anterior left thalamus. Chronic small vessel ischemia. No intracranial hemorrhage. EKG showed the normal sinus rhythm. Ventricular rate of 82. Cannot rule out inferior infarct, age undetermined. ST and T-wave abnormality consider lateral ischemia. Echocardiogram showed left ventricular size is normal. There is mild concentric left ventricular hypertrophy. Impression fraction is 40-45%. Inferior hypokinesis. Septal hypokinesis. The left atrium is severely dilated. vitamin B12 is 374 folate is 13.7 Lipid profile in the triglyceride is 114, the cholesterol is 1:30, LDL 65, HDL is 42 Currently the patient is on aspirin 325 daily and Lipitor 40 mg daily. Recommend patient to be on dual antiplateletes ASA 81mg and Plavix 75mg daily and increase the lipitor 80mg once patient is stable from her current condition. Ordered TSH telemonitor to determine if A-fib or arrhythmia is detected. Regarding her weakness of left lower extremity predominately foot with absent pulse distally: She was getting ultrasound. Recommend vascular team to management. -Recommend CPK. For the elevated troponin and leukocytosis is likely reactive and cardiology is on board. Thank you for the consult Leon Nix MD Neuro-hospitalist Time with Patient: Greater than 30
--- NOTE | 2020-02-02 11:39 | P.PN ---
Subjective Patient is on [id number] female admitted for severe anemia. Patient up and he was confused at the time of admission although she is not confused at this time. Patient was evaluated by neurology patient doesn't appear to be encephalopathic at this time. Patient has elevated troponins which is believed secondary to anemia. Patient will undergo EGD on admission patient's hemoglobin was 6 patient doesn't have any evidence of or GI bleed at this time patient also has mildly elevated liver enzymes are do not have any repeat liver enzymes at t his time these will be repeated for tomorrow. Patient is alert oriented 2-3. Patient had a recent stroke and patient is on Plavix at home. This is being held because of her severe anemia and possibility of GI bleed that cannot be ruled out. Patient was also evaluated for left iliac occlusion by vascular surgery in the recommending dual antiplatelet therapy once her anemia issues addressed. Constitutional: Denied any fatigue denied any fever. Cardio vascular: denied any chest pain, palpitations Gastrointestinal denied any nausea vomiting Pulmonary: Denied any shortness of breath cough Neurologic denied any new focal deficits All inpatient medications were reviewed and appropriate changes in these medications as dictated in the interval history and assessment and plan. Objective - Vital Signs Vital signs: Vital Signs Temp 99.5 F 02/02/20 10:59 Pulse 69 02/02/20 10:59 Resp 16 02/02/20 10:59 BP 107/59 02/02/20 10:59 Pulse Ox 98 02/02/20 10:59 Intake & Output 02/01/20 02/02/20 02/02/20 18:59 06:59 18:59 Intake Total 520 10 Output Total 0 Balance 520 10 0 Weight 86 kg Intake: IV 10 .9 10 Oral 210 Blood Product 310 Rc As-1 Unit 310 [id number] Output: Urine 0 Other: Voiding Method Diaper Diaper Diaper # Voids 1 0 - Exam PHYSICAL EXAMINATION: GENERAL: The patient is alert and oriented x3, not in any acute distress. Well developed, well nourished. HEENT: Pupils are round and equally reacting to light. EOMI. No scleral icterus. Does have conjunctival pallor. Normocephalic, atraumatic. No pharyngeal erythema. No thyromegaly. CARDIOVASCULAR: S1 and S2 present. No murmurs, rubs, or gallops. PULMONARY: Chest is clear to auscultation, no wheezing or crackles. ABDOMEN: Soft, nontender, nondistended, normoactive bowel sounds. No palpable organomegaly. MUSCULOSKELETAL: No joint swelling or deformity. EXTREMITIES: No cyanosis, clubbing, or pedal edema. NEUROLOGICAL: Gross neurological examination did not reveal any focal deficits. SKIN: No rashes. - Labs CBC & Chem 7: 02/02/20 06:09 02/01/20 02:15 Labs: Abnormal Lab Results - Last 24 Hours (Table) 02/01/20 02/01/20 02/01/20 Range/Units 02:53 07:57 17:57 WBC 13.4 H (3.8-10.6) k/uL RBC 3.14 L (3.80-5.40) m/uL Hgb 7.4 L (11.4-16.0) gm/dL Hct 25.0 L (34.0-46.0) % MCV 79.5 L (80.0-100.0) fL MCH 23.7 L (25.0-35.0) pg MCHC 29.8 L (31.0-37.0) g/dL RDW 16.9 H (11.5-15.5) % Iron 29 L (50-170) ug/dL % Saturation 7.32 L (12.00-45.00) Crossmatch See Detail 02/02/20 Range/Units 06:09 WBC 13.4 H (3.8-10.6) k/uL RBC 3.05 L (3.80-5.40) m/uL Hgb 7.2 L (11.4-16.0) gm/dL Hct 24.2 L (34.0-46.0) % MCV 79.4 L (80.0-100.0) fL MCH 23.5 L (25.0-35.0) pg MCHC 29.6 L (31.0-37.0) g/dL RDW 18.2 H (11.5-15.5) % Iron (50-170) ug/dL % Saturation (12.00-45.00) Crossmatch Microbiology - Last 24 Hours (Table) 02/01/20 02:29 Blood Culture - Preliminary Blood No Growth after 24 hours Assessment and Plan Plan: -Type II non-ST elevation microinfarction: Secondary to anemia patient will be treated for anemia radiology evaluate the patient echo cardiac murmur was opted which did show some wall motion abnormalities unsure whether these are old cardiology is addressing this issue. -Severe anemia without any wart evidence of GI bleed patient will undergo upper GI endoscopy patient received blood transfusion patient denied any chest pain at this time -Peripheral vascular disease with a severe left iliac occlusion -Recent cerebral vascular accident with mild residual weakness on the right side -Mildly elevated liver enzymes as they it's only mild elevation of repeat the liver enzymes again statin will be restarted again as the liver enzyme elevation is only minimal. -Leukocytosis without any evidence of infection
--- NOTE | 2020-02-02 11:50 | P.PN ---
Subjective Progress Note Date: 02/02/20 Patient is seen and examined at the bedside with Dr. Thayer. Patient was brought into the emergency department per acute mental status changes. Neurology is on consult. Patient was found to have elevated troponins and to be anemic with an admission hemoglobin of 6.0. She is status post 2 units of packed red blood cells with a hemoglobin of 7.2 today. Patient is more alert and awake today. Patient still seems somewhat confused. Patient has expressive the aphasia. She is able to answer simple questions, however difficult and forming sentences. Patient is unable to verbalize why she had amputations of her fingers to bilateral hands, but states occurred in 1983. Looking back at emergency department note states that the daughter had mentioned it was related to a traumatic injury and not vascular event. She does state that there is pain to the left lower extremity. Patient states the pain began several months ago. Still unable to obtain whether or not she is ambulatory at home. Patient has a known history of a CVA approximately 4 years ago with residual expressive aphasia. Objective - Vital Signs Vital signs: Vital Signs Temp 99.5 F 02/02/20 10:59 Pulse 69 02/02/20 10:59 Resp 16 02/02/20 10:59 BP 107/59 02/02/20 10:59 Pulse Ox 98 02/02/20 10:59 Intake & Output 02/01/20 02/02/20 02/02/20 18:59 06:59 18:59 Intake Total 520 10 Output Total 0 Balance 520 10 0 Weight 86 kg Intake: IV 10 .9 10 Oral 210 Blood Product 310 Rc As-1 Unit 310 [id number] Output: Urine 0 Other: Voiding Method Diaper Diaper Diaper # Voids 1 0 - Exam General appearance: The patient is alert, non-orientated. Obese. HET: Head is normocephalic and atraumatic. Pupils are equal and reactive. Neck: Supple without lymphadenopathy. Trachea midline. Heart: S1 S2. Regular rate and rhythm. Lungs: No crackles or wheezes are heard. Abdomen: Soft, nontender, nondistended with bowel sounds. Extremities: Normal skin color and turgor. No cyanosis, rash, ulceration, clubbing, or edema. 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 Palpable +2 radial pulses bilaterally. Palpable right femoral, popliteal, PT and DP pulses. Left lower extremity audible femoral signal. Unable to palpate popliteal,DP or PT pulses, as well as Doppler signal of left PT or DP. Capillary refill less than 5 seconds bilaterally, left lower extremity cool to touch compared to right lower extremity. Patient is able to wiggle bilateral toes and move bilateral lower extremities. Patient does complain of pain when palpating and moving the left lower extremity. Neurological: Confused mentation. Patient is not answering questions appropriately. - Labs CBC & Chem 7: 02/02/20 06:09 02/01/20 02:15 Labs: Abnormal Lab Results - Last 24 Hours (Table) 02/01/20 02/01/20 02/01/20 Range/Units 02:53 07:57 17:57 WBC 13.4 H (3.8-10.6) k/uL RBC 3.14 L (3.80-5.40) m/uL Hgb 7.4 L (11.4-16.0) gm/dL Hct 25.0 L (34.0-46.0) % MCV 79.5 L (80.0-100.0) fL MCH 23.7 L (25.0-35.0) pg MCHC 29.8 L (31.0-37.0) g/dL RDW 16.9 H (11.5-15.5) % Iron 29 L (50-170) ug/dL % Saturation 7.32 L (12.00-45.00) Crossmatch See Detail 02/02/20 Range/Units 06:09 WBC 13.4 H (3.8-10.6) k/uL RBC 3.05 L (3.80-5.40) m/uL Hgb 7.2 L (11.4-16.0) gm/dL Hct 24.2 L (34.0-46.0) % MCV 79.4 L (80.0-100.0) fL MCH 23.5 L (25.0-35.0) pg MCHC 29.6 L (31.0-37.0) g/dL RDW 18.2 H (11.5-15.5) % Iron (50-170) ug/dL % Saturation (12.00-45.00) Crossmatch Microbiology - Last 24 Hours (Table) 02/01/20 02:29 Blood Culture - Preliminary Blood No Growth after 24 hours Assessment and Plan Assessment: 1. Left iliac artery occlusion approximately 95% 2. Altered mental status changes 3. Acute coronary syndrome 4. Anemia 5. History of CVA Plan: We'll order arterial Doppler ultrasound of bilateral lower extremities. CT a ngiogram was reviewed by Dr. Thayer. Patient will likely need vascular surgical intervention for left iliac artery occlusion once patient is stabilized and cleared by cardiology. Further recommendations to follow. The above dictated assessment and findings were discussed with Dr. Thayer. The impression and plan of care have been directed as dictated.
--- NOTE | 2020-02-02 12:12 | CDI ---
Documentation Clarification Form Date: 02/02/2020 11:45:42 AM From: Vilma Turk RN, CCDS Admit Date: 02/01/2020 04:50:00 AM Patient Name: Indira Olvera Visit Number: [id number] ATTENTION: The Clinical Documentation Specialists (CDI) and [facility] Coding Staff appreciate your assistance in clarifying documentation. Please respond to the clarification below the line at the bottom and electronically sign. The CDI & [facility] Coding staff will review the response and follow-up if needed. Please note: Queries are made part of the Legal Health Record. If you have any questions, please contact the author of this message via ITS. Dr. Pravin Engle Altered Mental Status was documented in the H&P and Consults and requires further specificity." History/Risk Factors: CVA Clinical Indicators: 01/31 H&P: "This is a pleasant 70 years old female with unknown past medical history presents with altered mental status. 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 Old 5 mm lacunar infarct anterior left thalamus. Chronic small vessel ischemia. No intracranial hemorrhage." Treatment: 01/31 1L 0.9% NS IVF Bolus In your professional opinion, please clarify the etiology of the Altered Mental Status, if known. Metabolic Encephalopathy (specify Underlying Medical Illness) Other condition (please specify) Unable to determine (Last Revision: September 2017) Altered Mental status, multifactorial. Mainly metabolic encephalopathy secondary to severe anemia MTDD
--- NOTE | 2020-02-02 12:17 | P.PN ---
Subjective Progress Note Date: 02/02/20 Principal diagnosis: Acute coronary syndrome This is a pleasant 70-year-old female patient who is somewhat poor historian with a past medical history significant for hypertension as well as dyslipidemia as well as history of stroke was brought to the emergency department with a change in mental status. The patient is a poor historian and she is unable to provide with any details. We consulted to see the patient because of abnormal troponin. The troponin is consistent with acute coronary syndrome as well as the EKG which showed sinus rhythm with ST changes in the inferolateral leads concerning for severe underlying coronary artery disease. During her hospital stay she underwent an echocardiogram which revealed mildly impaired LV function with EF of around 45% was evidence of moderate mitral regurgitation. More importantly, the patient was found to be anemic with a hemoglobin around 6 and currently she is in process of receiving packed RBC. No indication that the patient did have any evidence of GI bleed. No indication that the patient didn't have any symptoms of chest pain or chest discomfort or increasing in the shortness of breath. No dizziness or lightheadedness and no loss of consciousness or syncope. During this hospital stay she underwent a computed tomography scan of the chest and lower extremities and that revealed no evidence of aortic dissection but she was found to have severe disease involving the right iliac artery. Currently the patient is chest pain-free. She is on aspirin as well as statin as well as metoprolol at this point. The patient was seen today. She is asymptomatic from a cardiovascular standpoint of view. The hemoglobin is a stable weight she is going for EGD in the next 24 hours. I would continue hold any antiplatelet or anticoagulation at this point. Otherwise we'll continue the current medical regimen including metoprolol as well as statin. The echocardiogram revealed impaired LV function was EF around 40-45% with wall motion abnormalities concerning for severe underlying coronary artery disease. Objective - Vital Signs Vital signs: Vital Signs Temp 99.5 F 02/02/20 10:59 Pulse 69 02/02/20 10:59 Resp 16 02/02/20 10:59 BP 107/59 02/02/20 10:59 Pulse Ox 98 02/02/20 10:59 Intake & Output 02/01/20 02/02/20 02/02/20 18:59 06:59 18:59 Intake Total 520 10 Output Total 0 Balance 520 10 0 Weight 86 kg Intake: IV 10 .9 10 Oral 210 Blood Product 310 Rc As-1 Unit 310 [id number] Output: Urine 0 Other: Voiding Method Diaper Diaper Diaper # Voids 1 0 - Constitutional General appearance: Present: no acute distress - Respiratory Respiratory: bilateral: diminished - Cardiovascular Rhythm: regular Heart sounds: normal: S1, S2 - Labs CBC & Chem 7: 02/02/20 06:09 02/01/20 02:15 Labs: Abnormal Lab Results - Last 24 Hours (Table) 02/01/20 02/01/20 02/01/20 Range/Units 02:53 07:57 17:57 WBC 13.4 H (3.8-10.6) k/uL RBC 3.14 L (3.80-5.40) m/uL Hgb 7.4 L (11.4-16.0) gm/dL Hct 25.0 L (34.0-46.0) % MCV 79.5 L (80.0-100.0) fL MCH 23.7 L (25.0-35.0) pg MCHC 29.8 L (31.0-37.0) g/dL RDW 16.9 H (11.5-15.5) % Iron 29 L (50-170) ug/dL % Saturation 7.32 L (12.00-45.00) CK-MB (CK-2) (0.0-2.4) ng/mL Crossmatch See Detail 02/02/20 02/02/20 Range/Units 06:09 06:09 WBC 13.4 H (3.8-10.6) k/uL RBC 3.05 L (3.80-5.40) m/uL Hgb 7.2 L (11.4-16.0) gm/dL Hct 24.2 L (34.0-46.0) % MCV 79.4 L (80.0-100.0) fL MCH 23.5 L (25.0-35.0) pg MCHC 29.6 L (31.0-37.0) g/dL RDW 18.2 H (11.5-15.5) % Iron (50-170) ug/dL % Saturation (12.00-45.00) CK-MB (CK-2) 46.0 H (0.0-2.4) ng/mL Crossmatch Microbiology - Last 24 Hours (Table) 02/01/20 02:29 Blood Culture - Preliminary Blood No Growth after 24 hours Assessment and Plan Assessment: Assessment #1 acute coronary syndrome #2 severe anemia #3 hypertension #4 dyslipidemia #5 history of CVA #6 change in mental status Plan #1 consider conservative medical approach at this point in view of the low hemoglobin #2 continue the current medical regimen including aspirin as well as metoprolol as well as a statin #3 follow-up on the EGD #4 follow-up with the patient
[2020-02-02] MEDS ORDERED: PROPOFOL 10 MG/ML 20 ML VIAL IV ONE (14:42)
[2020-02-02] MEDS ORDERED: SODIUM CHLORIDE 0.9% 500 ML 500 ML IV ONE (14:46)
--- NOTE | 2020-02-02 14:55 | P.PCN ---
Date of Procedure: 02/02/20 Procedure(s) Performed: BRIEF HISTORY: Patient is a 69-year-old, pleasant, white female admitted hospital with severe symptomatic anemia with hemoglobin of 6 requiring 2 units of blood transfusion. Iron stidies consistent with iron deficiency anemia. No active GI bleed. He scheduled for an upper endoscopy to evaluate for upper GI source of bleeding.. PROCEDURE PERFORMED: Esophagogastroduodenoscopy. PREOPERATIVE DIAGNOSIS: Severe iron deficiency anemia. IV sedation per anesthesia. PROCEDURE: After informed consent was obtained, the patient was brought into the endoscopy unit. IV sedation was administered by Anesthesia under continuous monitoring. Initially the Olympus GIF-140 video endoscope was inserted into the mouth. Esophagus intubated without any difficulty. It was gradually advanced into the stomach and duodenum and carefully examined. The bulb and the second part of the duodenum appeared normal. The scope at this time was withdrawn to the stomach, adequately insufflated with air, and upon careful examination, mucosa of the antrum, body, cardia and the fundus appeared normal. The scope was then withdrawn into the esophagus. The GE junction was located at 39 cm from the incisors. The esophagus appeared normal. There were no erosions or ulcerations seen and the patient tolerated the procedure well. IMPRESSION: 1. Normal upper endoscopy. RECOMMENDATIONS: The findings of this examination were discussed with the patient as well as a family. At this time will keep her on a clear liquid diet. We will discuss with cardiology for clearance for possible colonoscopy..
[2020-02-02] MEDS ORDERED: PEG 3350-NA SULF,BICARB,CL/KCL 4,000 ML BOTTLE PO ONE (15:30)
[2020-02-03] MEDS: LEVOTHYROXINE 112 MCG TAB PO SCH (06:20)
[2020-02-03 08:29] LABS: ALT 156 U/L (4-34); AST 158 U/L (14-36); African American GFR (CKD) >90 (>60 ml/min/1.73 sqM); Albumin 3.3 g/dL (3.5-5.0); Alkaline Phosphatase 86 U/L (38-126); Anion Gap 5 mmol/L; Blood Urea Nitrogen 22 mg/dL (7-17); Calcium 8.5 mg/dL (8.4-10.2); Carbon Dioxide 26 mmol/L (22-30); Chloride 113 mmol/L (98-107); Glucose 96 mg/dL (74-99); Non-African American GFR(CKD) 82 (>60 ml/min/1.73 sqM); Potassium 4.3 mmol/L (3.5-5.1); Sodium 144 mmol/L (137-145); Total Bilirubin 0.7 mg/dL (0.2-1.3); Total Protein 5.9 g/dL (6.3-8.2)
[2020-02-03 08:32] LABS: Anisocytosis Slight; Hypochromasia Marked; MCH 23.8 pg (25.0-35.0); MCHC 29.1 g/dL (31.0-37.0); MCV 81.9 fL (80.0-100.0); Mean Platelet Volume 8.3; Microcytosis Slight; Platelet Count 342 k/uL (150-450); Poikilocytosis Marked; RBC 2.92 m/uL (3.80-5.40); RDW 17.9 % (11.5-15.5); WBC 14.1 k/uL (3.8-10.6)
[2020-02-03] MEDS: ATORVASTATIN 40 MG TAB PO SCH (09:13)
[2020-02-03] MEDS: lisinopriL 10 MG TAB PO SCH (09:13)
[2020-02-03] MEDS: PANTOPRAZOLE 40 MG/10 ML VIAL IVP SCH ×2 (09:39→20:51)
--- NOTE | 2020-02-03 11:48 | P.PN ---
Subjective Patient is on [id number] female admitted for severe anemia. Patient up and he was confused at the time of admission although she is not confused at this time. Patient was evaluated by neurology patient doesn't appear to be encephalopathic at this time. Patient has elevated troponins which is believed secondary to anemia. Patient will undergo EGD on admission patient's hemoglobin was 6 patient doesn't have any evidence of or GI bleed at this time patient also has mildly elevated liver enzymes are do not have any repeat liver enzymes at t his time these will be repeated for tomorrow. Patient is alert oriented 2-3. Patient had a recent stroke and patient is on Plavix at home. This is being held because of her severe anemia and possibility of GI bleed that cannot be ruled out. Patient was also evaluated for left iliac occlusion by vascular surgery in the recommending dual antiplatelet therapy once her anemia issues addressed. 02/03/2020 Patient continues to have a elevated troponin. Patient had an upper GI endoscopy did not show any acute GI bleed and patient is undergoing colonoscopy today. Constitutional: Denied any fatigue denied any fever. Cardio vascular: denied any chest pain, palpitations Gastrointestinal denied any nausea vomiting Pulmonary: Denied any shortness of breath cough Neurologic denied any new focal deficits All inpatient medications were reviewed and appropriate changes in these medications as dictated in the interval history and assessment and plan. Objective - Vital Signs Vital signs: Vital Signs Temp 99.4 F 02/03/20 03:53 Pulse 70 02/03/20 03:53 Resp 18 02/03/20 03:53 BP 91/57 02/03/20 03:53 Pulse Ox 98 02/03/20 03:53 Intake & Output 02/02/20 02/03/20 02/03/20 18:59 06:59 18:59 Intake Total 50 Output Total 0 Balance 50 Weight 87 kg Intake: IV 50 Output: Urine 0 Other: Voiding Method Diaper Diaper # Voids 1 1 # Bowel Movements 1 - Exam PHYSICAL EXAMINATION: GENERAL: The patient is alert and oriented x3, not in any acute distress. Well developed, well nourished. HEENT: Pupils are round and equally reacting to light. EOMI. No scleral icterus. Does have conjunctival pallor. Normocephalic, atraumatic. No pharyngeal erythema. No thyromegaly. CARDIOVASCULAR: S1 and S2 present. No murmurs, rubs, or gallops. PULMONARY: Chest is clear to auscultation, no wheezing or crackles. ABDOMEN: Soft, nontender, nondistended, normoactive bowel sounds. No palpable organomegaly. MUSCULOSKELETAL: No joint swelling or deformity. EXTREMITIES: No cyanosis, clubbing, or pedal edema. NEUROLOGICAL: Gross neurological examination did not reveal any focal deficits. SKIN: No rashes. - Labs CBC & Chem 7: 02/03/20 07:29 02/03/20 07:29 Labs: Abnormal Lab Results - Last 24 Hours (Table) 02/02/20 02/02/20 02/02/20 Range/Units 06:09 12:23 18:11 WBC (3.8-10.6) k/uL RBC (3.80-5.40) m/uL Hgb (11.4-16.0) gm/dL Hct (34.0-46.0) % MCH (25.0-35.0) pg MCHC (31.0-37.0) g/dL RDW (11.5-15.5) % Chloride (98-107) mmol/L BUN (7-17) mg/dL AST (14-36) U/L ALT (4-34) U/L CK-MB (CK-2) 46.0 H (0.0-2.4) ng/mL Troponin I 23.300 H* 22.000 H* (0.000-0.034) ng/mL Total Protein (6.3-8.2) g/dL Albumin (3.5-5.0) g/dL 02/03/20 02/03/20 Range/Units 07:29 07:29 WBC 14.1 H (3.8-10.6) k/uL RBC 2.92 L (3.80-5.40) m/uL Hgb 7.0 L (11.4-16.0) gm/dL Hct 24.0 L (34.0-46.0) % MCH 23.8 L (25.0-35.0) pg MCHC 29.1 L (31.0-37.0) g/dL RDW 17.9 H (11.5-15.5) % Chloride 113 H (98-107) mmol/L BUN 22 H (7-17) mg/dL AST 158 H (14-36) U/L ALT 156 H (4-34) U/L CK-MB (CK-2) (0.0-2.4) ng/mL Troponin I (0.000-0.034) ng/mL Total Protein 5.9 L (6.3-8.2) g/dL Albumin 3.3 L (3.5-5.0) g/dL Microbiology - Last 24 Hours (Table) 02/01/20 02:29 Blood Culture - Preliminary Blood No Growth after 48 hours Assessment and Plan Plan: - non-ST elevation myocardial infarction: Secondary to anemia patient will be treated for anemia radiology evaluate the patient echo cardiac murmur was opted which did show some wall motion abnormalities unsure whether these are old cardiology is addressing this issue. As per cardiology patient has type II non- ST elevation microinfarction -Severe anemia without any overt evidence of GI bleed patient will undergo upper GI endoscopy patient received blood transfusion patient denied any chest pain at this time. Upper GI endoscopy did show any significant abnormality patient will undergo colonoscopy today -Peripheral vascular disease with a severe left iliac occlusion -Recent cerebral vascular accident with mild residual weakness on the right side -Mildly elevated liver enzymes as they it's only mild elevation of repeat the liver enzymes again statin will be restarted again as the liver enzyme elevation is only minimal. -Leukocytosis without any evidence of infection
--- NOTE | 2020-02-03 12:38 | P.PN ---
Subjective Progress Note Date: 02/03/20 Patient is seen and examined lying in bed. Patient was initially admitted for altered mental status changes. Was found to have severe anemia with a presenting hemoglobin of 6.0. There has been little history that has been obtained as patient has been continued confusion and no family has been present. She is status post 2 units of packed red blood cells, hemoglobin today 7.0. Patient still seems some with confused and disoriented. However when asked if she is having any pain, patient is able to state that her left lower extremity is painful. She is able to move bilateral lower extremities. The patient underwent an EGD yesterday with the GI services for severe iron deficiency anemia, her EGD was normal with no source of bleeding was found. Patient is scheduled today to have a colonoscopy to rule out a source of bleed. The patient is denying any abdominal pain, has had no nausea or vomiting. There have been no reports of any active GI bleed, including blood in the stool or dark tarry stools. Cardiology is following patient for elevated troponins and acute coronary event. Objective - Vital Signs Vital signs: Vital Signs Temp 98.1 F 02/03/20 08:00 Pulse 70 02/03/20 12:00 Resp 18 02/03/20 12:00 BP 108/51 02/03/20 08:00 Pulse Ox 92 L 02/03/20 08:00 Intake & Output 02/02/20 02/03/20 02/03/20 18:59 06:59 18:59 Intake Total 50 880 Output Total 0 0 Balance 50 880 Weight 87 kg Intake: IV 50 Oral 880 Output: Urine 0 0 Other: Voiding Method Diaper Diaper Diaper # Voids 1 1 1 # Bowel Movements 1 - Exam General appearance: The patient is alert, non-orientated. Obese. HET: Head is normocephalic and atraumatic. Pupils are equal and reactive. Neck: Supple without lymphadenopathy. Trachea midline. Heart: S1 S2. Regular rate and rhythm. Lungs: No crackles or wheezes are heard. Abdomen: Soft, nontender, nondistended with bowel sounds. Extremities: Normal skin color and turgor. No cyanosis, rash, ulceration, clubbing, or edema. 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 Palpable +2 radial pulses bilaterally. Palpable right femoral, popliteal, PT and DP pulses. Left lower extremity audible femoral signal. Unable to palpate popliteal, DP or PT pulses, as well as Doppler signal of left PT or DP. Capillary refill less than 5 seconds on right lower extremity, decreased on left, left lower extremity cool to touch compared to right lower extremity. Patient is able to wiggle bilateral toes and move bilateral lower extremities. Patient does complain of pain when palpating and moving the left lower extremity. Neurological: Confused mentation. Patient is not answering questions appropriately. - Labs CBC & Chem 7: 02/03/20 07:02/03/20 07:29 Labs: Abnormal Lab Results - Last 24 Hours (Table) 02/02/20 02/02/20 02/03/20 Range/Units 12:23 18:11 07:29 WBC 14.1 H (3.8-10.6) k/uL RBC 2.92 L (3.80-5.40) m/uL Hgb 7.0 L (11.4-16.0) gm/dL Hct 24.0 L (34.0-46.0) % MCH 23.8 L (25.0-35.0) pg MCHC 29.1 L (31.0-37.0) g/dL RDW 17.9 H (11.5-15.5) % Chloride (98-107) mmol/L BUN (7-17) mg/dL AST (14-36) U/L ALT (4-34) U/L Troponin I 23.300 H* 22.000 H* (0.000-0.034) ng/mL Total Protein (6.3-8.2) g/dL Albumin (3.5-5.0) g/dL 02/03/20 Range/Units 07:29 WBC (3.8-10.6) k/uL RBC (3.80-5.40) m/uL Hgb (11.4-16.0) gm/dL Hct (34.0-46.0) % MCH (25.0-35.0) pg MCHC (31.0-37.0) g/dL RDW (11.5-15.5) % Chloride 113 H (98-107) mmol/L BUN 22 H (7-17) mg/dL AST 158 H (14-36) U/L ALT 156 H (4-34) U/L Troponin I (0.000-0.034) ng/mL Total Protein 5.9 L (6.3-8.2) g/dL Albumin 3.3 L (3.5-5.0) g/dL Microbiology - Last 24 Hours (Table) 02/01/20 02:29 Blood Culture - Preliminary Blood No Growth after 48 hours Assessment and Plan Assessment: 1. Left iliac artery occlusion approximately 95% 2. Pain in left lower extremity 3. Altered mental status changes 4. Acute coronary syndrome 5. Severe iron deficiency Anemia 6. History of CVA Plan: Arterial Doppler studies were completed and reviewed. Right CLARE 1.36, ABIs were completed on the left lower extremity as from the popliteal down there was no signal. CT angiogram was reviewed by Dr. Thayer. Patient will likely need vascular surgical intervention for left iliac artery occlusion once patient is stabilized and cleared by cardiology. Continue with recommendations per GI to evaluate for source of bleed as patient will likely need anticoagulation. Further recommendations to follow. The above dictated assessment and findings were discussed with Dr. Braun. The i mpression and plan of care have been directed as dictated.
[2020-02-03] MEDS ORDERED: LACTATED RINGERS 1,000 ML IV ONE (13:38)
[2020-02-03] MEDS ORDERED: PROPOFOL 10 MG/ML 20 ML VIAL IV ONE (13:55)
--- NOTE | 2020-02-03 14:08 | P.PCN ---
Date of Procedure: 02/03/20 Procedure(s) Performed: BRIEF HISTORY: Patient is a 70-year-old pleasant white female with iron deficiency anemia. Hemoglobin 6 g/dL requiring 2 units of blood transfusion. No GI symptoms. She underwent an upper endoscopy yesterday that was unremarkable. She is hence scheduled for a colonoscopy to evaluate further. She is also noted to have elevated troponins and cardiology following the patient closely. PROCEDURE PERFORMED: Colonoscopy. PREOPERATIVE DIAGNOSIS: Iron deficiency anemia negative upper endoscopy. IV sedation per Anesthesia. PROCEDURE: After informed consent was obtained, the patient, was brought into the endoscopy unit. IV sedation was administered by Anesthesia under continuous monitoring. Digital rectal examination was normal. Initially the Olympus CF-160 flexible video colonoscope was then inserted in the rectum, gradually advanced into the cecum without any difficulty. Careful examination was performed as the scope was gradually being withdrawn. Ileocecal valve and the appendiceal orifice were visualized and appeared normal. Prep was excellent. Mucosa of the cecum, ascending colon, transverse colon, descending colon, sigmoid colon, and rectum appeared normal. Diffuse diverticulosis noted throughout the entire colon. Retroflexion was performed in the rectum and small internal hemorrhoids were seen. The patient tolerated the procedure well. IMPRESSION: Diffuse diverticulosis throughout the entire colon Small internal hemorrhoids RECOMMENDATIONS: Findings of this examination were discussed with the patient. We will consider a small bowel capsule endoscopy to evaluate further. In the meantime she'll be on a clear liquid diet.
--- NOTE | 2020-02-03 14:38 | P.PN ---
Subjective Progress Note Date: 02/03/20 CHIEF COMPLAINT: Acute coronary syndrome HISTORY OF PRESENT ILLNESS: Patient examined this morning at the bedside. She denies chest pain or pressure. Hemoglobin is 7.0. She is scheduled for a colonoscopy today with GI service. PHYSICAL EXAM: VITAL SIGNS: Reviewed. GENERAL: Well-developed in no acute distress. NECK: Supple. No JVD or thyromegaly LUNGS: Respirations even and unlabored. Lungs essentially clear to auscultation bilaterally. HEART: Regular rate and rhythm. S1 and S2 heard. EXTREMITIES: Normal range of motion. No clubbing or cyanosis. Peripheral pulses intact. No lower extremity edema ASSESSMENT: #1 acute coronary syndrome #2 severe anemia #3 hypertension #4 dyslipidemia #5 history of CVA PLAN: -Continue with conservative management at this time per Dr. Campos -Hold anticoagulation in view of anemia -Continue current medical regimen including statin and CA. No aspirin secondary to anemia. No beta amador at this time due to marginal blood pressure and heart rate. -Patient scheduled for colonoscopy today. Await findings Nurse practitioner note has been reviewed by physician. Signing provider agrees with the documented findings, assessment, and plan of care. Objective - Vital Signs Vital signs: Vital Signs Temp 99.4 F 02/03/20 03:53 Pulse 70 02/03/20 03:53 Resp 18 02/03/20 03:53 BP 91/57 02/03/20 03:53 Pulse Ox 98 02/03/20 03:53 Intake & Output 02/02/20 02/03/20 02/03/20 18:59 06:59 18:59 Intake Total 50 Output Total 0 Balance 50 Weight 87 kg Intake: IV 50 Output: Urine 0 Other: Voiding Method Diaper Diaper # Voids 1 1 # Bowel Movements 1 - Labs CBC & Chem 7: 02/03/20 07:29 02/03/20 07:29 Labs: Abnormal Lab Results - Last 24 Hours (Table) 02/02/20 02/02/20 02/03/20 Range/Units 12:23 18:11 07:29 WBC 14.1 H (3.8-10.6) k/uL RBC 2.92 L (3.80-5.40) m/uL Hgb 7.0 L (11.4-16.0) gm/dL Hct 24.0 L (34.0-46.0) % MCH 23.8 L (25.0-35.0) pg MCHC 29.1 L (31.0-37.0) g/dL RDW 17.9 H (11.5-15.5) % Chloride (98-107) mmol/L BUN (7-17) mg/dL AST (14-36) U/L ALT (4-34) U/L Troponin I 23.300 H* 22.000 H* (0.000-0.034) ng/mL Total Protein (6.3-8.2) g/dL Albumin (3.5-5.0) g/dL 02/03/20 Range/Units 07:29 WBC (3.8-10.6) k/uL RBC (3.80-5.40) m/uL Hgb (11.4-16.0) gm/dL Hct (34.0-46.0) % MCH (25.0-35.0) pg MCHC (31.0-37.0) g/dL RDW (11.5-15.5) % Chloride 113 H (98-107) mmol/L BUN 22 H (7-17) mg/dL AST 158 H (14-36) U/L ALT 156 H (4-34) U/L Troponin I (0.000-0.034) ng/mL Total Protein 5.9 L (6.3-8.2) g/dL Albumin 3.3 L (3.5-5.0) g/dL Microbiology - Last 24 Hours (Table) 02/01/20 02:29 Blood Culture - Preliminary Blood No Growth after 48 hours
--- NOTE | 2020-02-03 15:14 | P.ARTDOP ---
Arterial Doppler LOWER EXTREMITY ARTERIAL DOPPLER: DATE OF SERVICE: 02/02/2020 Reason for study: No pulses left leg. Doppler waveforms: Multiphasic on the right including posterior tibial. The right is monophasic at the popliteal. Femoral is not audible. Pulse volume recording: Normal waveforms on the right. The left is somewhat blunted at the femoral and flat line below. Pressure gradients: No real pressures on the left. Right is essentially normal. Ankle-brachial indices: Greater than 1 on the right. Toe brachial indices: 0.6 on the right, [] on the left Impression: The right is normal. The left shows severe femoral popliteal occlusive process, possibly acute, probable iliac component. Vascular surgical assessment recommended.
[2020-02-03] MEDS ORDERED: HEPARIN SODIUM,PORCINE 5,000 UNIT/ML 1 ML VIAL IV PRN (17:01)
[2020-02-03] MEDS: HYDROcodone/APAP 5-325MG 1 EACH TAB PO PRN (17:32)
[2020-02-03] MEDS: HEPARIN SOD,PORK IN 0.45% NACL 25,000 UNIT in 0.45% NACL 1 250ML.BAG IV SCH (18:27)
[2020-02-03] MEDS: MORPHINE SULFATE 2 MG/ML SYRINGE IVP PRN (20:50)
[2020-02-04] MEDS: LEVOTHYROXINE 112 MCG TAB PO SCH (06:06)
[2020-02-04 06:53] LABS: Anisocytosis Slight; Basophils # (A) 0.1 k/uL (0-0.2); Basophils % (A) 0 %; Eosinophils % (A) 0 %; Hypochromasia Marked; Lymphocytes # (A) 1.5 k/uL (1.0-4.8); Lymphocytes % (A) 10 %; MCH 23.6 pg (25.0-35.0); MCHC 29.3 g/dL (31.0-37.0); MCV 80.7 fL (80.0-100.0); Mean Platelet Volume 8.6; Microcytosis Slight; Monocytes % (A) 7 %; Neutrophils # (A) 11.9 k/uL (1.3-7.7); Neutrophils % (A) 80 %; Platelet Count 317 k/uL (150-450); Poikilocytosis Moderate; RBC 2.98 m/uL (3.80-5.40); RDW 19.2 % (11.5-15.5); WBC 14.8 k/uL (3.8-10.6)
[2020-02-04 07:08] LABS: African American GFR (CKD) >90 (>60 ml/min/1.73 sqM); Anion Gap 5 mmol/L; Blood Urea Nitrogen 19 mg/dL (7-17); Calcium 8.4 mg/dL (8.4-10.2); Carbon Dioxide 26 mmol/L (22-30); Chloride 111 mmol/L (98-107); Glucose 91 mg/dL (74-99); Non-African American GFR(CKD) 82 (>60 ml/min/1.73 sqM); Potassium 4.1 mmol/L (3.5-5.1); Sodium 142 mmol/L (137-145)
[2020-02-04] MEDS ORDERED: SIMETHICONE 40 MG/0.6 ML DROPS 2,000 MG/30 ML BOTTLE PO ONE (07:30)
[2020-02-04] MEDS: PANTOPRAZOLE 40 MG/10 ML VIAL IVP SCH ×2 (08:25→23:35)
[2020-02-04] MEDS: MORPHINE SULFATE 2 MG/ML SYRINGE IVP PRN ×4 (08:25→23:34)
[2020-02-04] MEDS: ATORVASTATIN 40 MG TAB PO SCH (08:29)
[2020-02-04] MEDS: lisinopriL 10 MG TAB PO SCH (08:29)
--- NOTE | 2020-02-04 12:07 | P.PN ---
Subjective Progress Note Date: 02/04/20 Principal diagnosis: Acute coronary syndrome This is a pleasant 70-year-old female patient who is somewhat poor historian with a past medical history significant for hypertension as well as dyslipidemia as well as history of stroke was brought to the emergency department with a change in mental status. The patient is a poor historian and she is unable to provide with any details. We consulted to see the patient because of abnormal troponin. The troponin is consistent with acute coronary syndrome as well as the EKG which showed sinus rhythm with ST changes in the inferolateral leads concerning for severe underlying coronary artery disease. During her hospital stay she underwent an echocardiogram which revealed mildly impaired LV function with EF of around 45% was evidence of moderate mitral regurgitation. More importantly, the patient was found to be anemic with a hemoglobin around 6 and currently she is in process of receiving packed RBC. No indication that the patient did have any evidence of GI bleed. No indication that the patient didn't have any symptoms of chest pain or chest discomfort or increasing in the shortness of breath. No dizziness or lightheadedness and no loss of consciousness or syncope. During this hospital stay she underwent a computed tomography scan of the chest and lower extremities and that revealed no evidence of aortic dissection but she was found to have severe disease involving the right iliac artery. Currently the patient is chest pain-free. She is on aspirin as well as statin as well as metoprolol at this point. The patient was seen today, February [id number]. She remains asymptomatic from a cardiovascular standpoint overview. She underwent an EGD and colonoscopy and both came in to be unremarkable in terms of active bleeding. She was diagnosed with acute limb ischemia of the left foot and she was restarted on heparin by Dr. Braun. The plan is to pursue with an angiogram and possible percutaneous peripheral intervention. From a cardiovascular standpoint of view, the patient can proceed with the procedure if there is no concern about bleeding after she would be started on dual antiplatelet therapy. That was addressed with the vascular surgeon who was going to do the procedure. From the cardiac st andpoint, I would continue the current medical regimen. I would continue the conservative medical approach. Continue following up with the patient Objective - Vital Signs Vital signs: Vital Signs Temp 98.2 F 02/04/20 03:50 Pulse 74 02/04/20 03:50 Resp 18 02/04/20 03:50 BP 118/73 02/04/20 03:50 Pulse Ox 96 02/04/20 03:50 Intake & Output 02/03/20 02/04/20 02/04/20 18:59 06:59 18:59 Intake Total 1180 53.5 Output Total 0 Balance 1180 53.5 Weight 85 kg Intake: IV 300 Intake, IV Titration 53.5 Amount Heparin Sod,Pork in 0.45% 53.5 NaCl 25,000 unit In 0.45 % NaCl 1 250ml.bag @ 11. 494 UNITS/KG/HR 10 mls/hr IV .Q24H [facility] Rx#: [id number] Oral 880 Output: Urine 0 Other: Voiding Method Diaper Bedpan Diaper # Voids 4 1 # Bowel Movements 3 - Constitutional General appearance: Present: no acute distress - Respiratory Respiratory: bilateral: diminished - Cardiovascular Heart sounds: normal: S1, S2 - Labs CBC & Chem 7: 02/04/20 06:21 02/04/20 06:21 Labs: Abnormal Lab Results - Last 24 Hours (Table) 02/03/20 02/03/20 02/04/20 Range/Units 17:28 22:54 06:21 WBC 14.8 H (3.8-10.6) k/uL RBC 2.98 L (3.80-5.40) m/uL Hgb 7.0 L (11.4-16.0) gm/dL Hct 24.0 L (34.0-46.0) % MCH 23.6 L (25.0-35.0) pg MCHC 29.3 L (31.0-37.0) g/dL RDW 19.2 H (11.5-15.5) % Neutrophils # 11.9 H (1.3-7.7) k/uL APTT 20.7 L 32.8 H (22.0-30.0) sec Chloride (98-107) mmol/L BUN (7-17) mg/dL 02/04/20 02/04/20 Range/Units 06:21 06:21 WBC (3.8-10.6) k/uL RBC (3.80-5.40) m/uL Hgb (11.4-16.0) gm/dL Hct (34.0-46.0) % MCH (25.0-35.0) pg MCHC (31.0-37.0) g/dL RDW (11.5-15.5) % Neutrophils # (1.3-7.7) k/uL APTT 47.9 H (22.0-30.0) sec Chloride 111 H (98-107) mmol/L BUN 19 H (7-17) mg/dL Microbiology - Last 24 Hours (Table) 02/01/20 02:29 Blood Culture - Preliminary Blood No Growth after 72 hours Assessment and Plan Assessment: Assessment #1 acute coronary syndrome #2 severe anemia #3 hypertension #4 dyslipidemia #5 history of CVA #6 change in mental status Plan #1 consider conservative medical approach at this point in view of the low hemoglobin #2 continue the current medical regimen including aspirin as well as metoprolol as well as a statin #3 follow-up with the patient
[2020-02-04] MEDS ORDERED: IV FLUID CONTINUATION 700 ML IV ONE (12:50)
[2020-02-04] MEDS ORDERED: LIDOCAINE 1% INJ 10MG/ML (20 ML MDV) SQ ONE (12:52)
[2020-02-04] MEDS: MIDAZOLAM 2 MG/2 ML VIAL IVP ONE ×2 (12:56→13:41)
[2020-02-04] MEDS: HYDROmorphone 1 MG/ML 1 ML SYRINGE IVP ONE ×2 (13:09→13:39)
--- NOTE | 2020-02-04 14:23 | IR ---
EXAMINATION TYPE: IR stent intravas non coronary DATE OF EXAM: 02/04/2020 CLINICAL HISTORY: Peripheral vascular disease. Bilateral leg pain. TECHNIQUE: Fluoroscopy. COMPARISON: None. FINDINGS: Fluoroscopic guidance was provided during lower extremity angiogram and stent insertion pr ocedure performed by Dr. Campos. A total of 9.8 minutes of fluoroscopic time was utilized during the p rocedure and multiple spot and cine images are acquired. Please refer to procedure note for further d etails as I was not present nor performed procedure. IMPRESSION: As Above.
--- NOTE | 2020-02-04 14:36 | P.OP ---
Date of Procedure: 02/04/20 Description of Procedure: Preoperative diagnosis: Acute limb ischemia left lower extremity, acute coronary syndrome, NSTEMI, anemia Postoperative diagnosis: Same Procedure: [#1 ultrasound-guided right common femoral artery access #2 right iliofemoral angiogram #3 selective left lower extremity and gram, second order to superficial femoral artery #4 balloon expandable stent VBX 7 x 79 and a left common iliac artery #5 mechanical thrombectomy left common iliac, external iliac and internal iliac arteries with the 8-Canadian penumbra #6 moderate conscious sedation 53 minutes with Versed and fentanyl] Surgeon: Dali Braun D.O. EBL: [Approximately 150 mL from suction thrombectomy] IV fluids: [See records] Urine output: [Not measured] Drains: [None] Complications: [None immediately apparent] Condition: [Stable but critical] Operative indication and findings: [The patient is a 70-year-old female who initially presented approximately 72 hours ago with altered mental status. At that time. Scan revealed occlusion to the left common iliac artery. Upon initial evaluation and exam she was also noted to have abnormal EKG, elevated troponins and an abnormal echocardiogram. She was also found to be severely anemic. The patient was not having any reportable leg pain at that time. She did not recoil to palpation. The decision was made to initially workup and evaluate her anemia as well as possible need for heart catheterization. Her upper and lower endoscopies and found to be negative without any evidence of active bleeding. She was evaluated and reevaluated by cardiology and since she was not having any discernible chest pain, thoughts were to treat her medically at this time. She began having more lucid and having increasing reports the pain in her leg. She began having some ischemic coloration changes and decreased motor in the leg therefore a long discussion was had with the patient's daughter in the plan was to go forth with an angiogram and possible stenting. It was discussed that she is too high risk for candidate of a TPA thrombolytics especially with her known anemia. She was initiated on a heparin drip and serial hemoglobins maintain stability. It was also discussed that she is very high risk for further cardiac events given her acute coronary syndrome and NSTEMI along with other comorbidities. It was also discussed that there is still a high likelihood for need for amputation, but hopefully with attempts at revascularization could change the level amputation that would be required. All the risks and benefits were discussed. The daughter seemingly understood and urged us to proceed. Upon initial angiogram the right common external and internal iliac arteries are patent without evidence of disease. The aorta is patent without evidence of disease. There is no visualized common iliac artery. After crossing the occluded common iliac, the external and internal iliac arteries appeared patent that evidence of significant disease. The common, superficial and deep femoral arteries are patent without evidence of disease. There is abrupt cessation of flow at the level of the popliteal artery with multiple collaterals although small but to allow for recanalization and sparse flow in the posterior tibial artery. There is no visualization of the anterior tibial or peroneal arteries. At the conclusion of the procedure the common iliac artery was widely patent with good brisk flow and clearance of flow. There remained to be occlusion at the level of the popliteal with a similar collaterals to the posterior tibial artery] Procedure in detail: [ the patient was taken to the operative suite and placed in supine position. Bilateral groins were prepped and draped in usual sterile fashion. A preprocedure timeout was performed, all parties are in agreement. The ultrasound was utilized in the right common femoral artery was identified. The skin overlying was anesthetized with 1% lidocaine plain. The artery was cannulated on first attempt and a 6-Canadian sheath was placed with Seldinger technique. No iliofemoral injury grandmother was performed with the findings as above. The guidewire and RBI catheter were utilized to access the left system. The occluded iliac artery was crossed and an angiogram done a leg was performed. The catheter was advanced into the level of the superficial femoral artery and repeat angiogram was performed revealing the findings as above. A Glidewire advantage was placed and a 7-Canadian sheath. A 7 x 79 VBX balloon expandable stent was placed to prison the thrombus. There was a small residual amount of thrombus at the bifurcation of the external and internal iliac arteries. The sheath was upsized to a long 8-Canadian sheath and a CAT 8 mechanical suction thrombectomy was utilized to extract that portion of the thrombus. Imaging was taken down the leg again revealing the findings as previ ous. The catheter and sheath were advanced, there was no obvious outflow through the majority of the calf as previous, the distal posterior tibial artery remained having an same reconstitution. There was no ability to suction any further thrombus from this point. Given the patient's overall comorbidities and acute coronary syndrome it was decided that she would be too high risk of the candidate for thrombolytics and at this point the procedure was concluded. The sheath was replaced for a short 8-Canadian sheath and a Angio-Seal was utilized with good hemostasis.]
[2020-02-04 15:23] LABS: Anisocytosis Slight; Basophils % (A) 0 %; Eosinophils % (A) 0 %; HCT 23.7 % (34.0-46.0); Hypochromasia Marked; Lymphocytes # (A) 1.3 k/uL (1.0-4.8); Lymphocytes % (A) 8 %; MCH 23.2 pg (25.0-35.0); MCHC 28.8 g/dL (31.0-37.0); MCV 80.5 fL (80.0-100.0); Mean Platelet Volume 7.7; Microcytosis Slight; Monocytes % (A) 7 %; Neutrophils # (A) 12.6 k/uL (1.3-7.7); Neutrophils % (A) 83 %; Platelet Count 324 k/uL (150-450); Poikilocytosis Moderate; RBC 2.94 m/uL (3.80-5.40); RDW 19.2 % (11.5-15.5); WBC 15.3 k/uL (3.8-10.6)
[2020-02-04 15:35] LABS: HGB 6.8 gm/dL (11.4-16.0)
--- NOTE | 2020-02-04 17:13 | P.PN ---
Subjective Patient is on [id number] female admitted for severe anemia. Patient up and he was confused at the time of admission although she is not confused at this time. Patient was evaluated by neurology patient doesn't appear to be encephalopathic at this time. Patient has elevated troponins which is believed secondary to anemia. Patient will undergo EGD on admission patient's hemoglobin was 6 patient doesn't have any evidence of or GI bleed at this time patient also has mildly elevated liver enzymes are do not have any repeat liver enzymes at t his time these will be repeated for tomorrow. Patient is alert oriented 2-3. Patient had a recent stroke and patient is on Plavix at home. This is being held because of her severe anemia and possibility of GI bleed that cannot be ruled out. Patient was also evaluated for left iliac occlusion by vascular surgery in the recommending dual antiplatelet therapy once her anemia issues addressed. 02/03/2020 Patient continues to have a elevated troponin. Patient had an upper GI endoscopy did not show any acute GI bleed and patient is undergoing colonoscopy today.10 02/04/2020 Patient underwent the angiogram of theof the extremities because of acute limb ischemia of the left lower extremity,underwent mechanical thrombectomy of left common iliac external iliac and the iliac Arteries where she had significant occlusions.probably will undergo cardiac catheterization tomorrow. Patient had a capsule endoscopy results of which are pending colonoscopy showed diverticulosis Constitutional: Denied any fatigue denied any fever. Cardio vascular: denied any chest pain, palpitations Gastrointestinal denied any nausea vomiting Pulmonary: Denied any shortness of breath cough Neurologic denied any new focal deficits All inpatient medications were reviewed and appropriate changes in these medi cations as dictated in the interval history and assessment and plan. Objective - Vital Signs Vital signs: Vital Signs Temp 98.7 F 02/04/20 16:47 Pulse 80 02/04/20 16:58 Resp 14 02/04/20 16:58 BP 123/56 02/04/20 16:58 Pulse Ox 96 02/04/20 16:58 Intake & Output 02/03/20 02/04/20 02/04/20 18:59 06:59 18:59 Intake Total 1180 53.5 0 Output Total 0 0 Balance 1180 53.5 0 Weight 85 kg Intake: IV 300 Intake, IV Titration 53.5 Amount Heparin Sod,Pork in 0.45% 53.5 NaCl 25,000 unit In 0.45 % NaCl 1 250ml.bag @ 11. 494 UNITS/KG/HR 10 mls/hr IV .Q24H [facility] Rx#: [id number] Oral 880 Blood Product 0 Rc Pheresis As-3 Unit 0 [id number] Output: Urine 0 0 Other: Voiding Method Diaper Bedpan Bedpan Diaper Diaper # Voids 4 1 3 # Bowel Movements 3 - Exam PHYSICAL EXAMINATION: GENERAL: The patient is alert and oriented x3, not in any acute distress. Well developed, well nourished. HEENT: Pupils are round and equally reacting to light. EOMI. No scleral icterus. Does have conjunctival pallor. Normocephalic, atraumatic. No pharyngeal erythema. No thyromegaly. CARDIOVASCULAR: S1 and S2 present. No murmurs, rubs, or gallops. PULMONARY: Chest is clear to auscultation, no wheezing or crackles. ABDOMEN: Soft, nontender, nondistended, normoactive bowel sounds. No palpable organomegaly. MUSCULOSKELETAL: No joint swelling or deformity. EXTREMITIES: No cyanosis, clubbing, or pedal edema. NEUROLOGICAL: Gross neurological examination did not reveal any focal deficits. SKIN: No rashes. - Labs CBC & Chem 7: 02/04/20 15:00 02/04/20 06:21 Labs: Abnormal Lab Results - Last 24 Hours (Table) 02/03/20 02/03/20 02/04/20 Range/Units 17:28 22:54 06:21 WBC 14.8 H (3.8-10.6) k/uL RBC 2.98 L (3.80-5.40) m/uL Hgb 7.0 L (11.4-16.0) gm/dL Hct 24.0 L (34.0-46.0) % MCH 23.6 L (25.0-35.0) pg MCHC 29.3 L (31.0-37.0) g/dL RDW 19.2 H (11.5-15.5) % Neutrophils # 11.9 H (1.3-7.7) k/uL APTT 20.7 L 32.8 H (22.0-30.0) sec Chloride (98-107) mmol/L BUN (7-17) mg/dL Crossmatch 02/04/20 02/04/20 02/04/20 Range/Units 06:21 06:21 15:00 WBC (3.8-10.6) k/uL RBC (3.80-5.40) m/uL Hgb (11.4-16.0) gm/dL Hct (34.0-46.0) % MCH (25.0-35.0) pg MCHC (31.0-37.0) g/dL RDW (11.5-15.5) % Neutrophils # (1.3-7.7) k/uL APTT 47.9 H (22.0-30.0) sec Chloride 111 H (98-107) mmol/L BUN 19 H (7-17) mg/dL Crossmatch See Detail 02/04/20 Range/Units 15:00 WBC 15.3 H (3.8-10.6) k/uL RBC 2.94 L (3.80-5.40) m/uL Hgb 6.8 L* (11.4-16.0) gm/dL Hct 23.7 L (34.0-46.0) % MCH 23.2 L (25.0-35.0) pg MCHC 28.8 L (31.0-37.0) g/dL RDW 19.2 H (11.5-15.5) % Neutrophils # 12.6 H (1.3-7.7) k/uL APTT (22.0-30.0) sec Chloride (98-107) mmol/L BUN (7-17) mg/dL Crossmatch Microbiology - Last 24 Hours (Table) 02/01/20 02:29 Blood Culture - Preliminary Blood No Growth after 72 hours Assessment and Plan Plan: - non-ST elevation myocardial infarction: Secondary to anemia patient will be treated for anemia radiology evaluate the patient echo cardiac murmur was opted which did show some wall motion abnormalities unsure whether these are old cardiology is addressing this issue. As per cardiology patient has type II non- ST elevation microinfarction -Severe anemia without any overt evidence of acuteGI bleed patient will undergo upper GI endoscopy patient received blood transfusion patient denied any chest pain at this time. Upper GI endoscopy did show any significant abnormality patient is status post colonoscopy in the presently undergoing capsule endoscopy no significant evidence of acute bleeding so far -Peripheral vascular disease with a severe left iliac occlusionpatient is status post thrombectomy as mentioned above -Recent cerebral vascular accident with mild residual weakness on the right side -Mildly elevated liver enzymes as they it's only mild elevation of repeat the liver enzymes again statin will be restarted again as the liver enzyme elevation is only minimal. -Leukocytosis without any evidence of infection
--- NOTE | 2020-02-04 20:35 | PN ---
PROGRESS NOTE DATE OF DICTATION: 02/04/2020 This patient is a 70-year-old pleasant white female admitted to the hospital with severe symptomatic anemia and a hemoglobin of 6, requiring 3 units of PRBC transfusion. She underwent an EGD as well as colonoscopy, both of which were unremarkable. Currently undergoing small bowel capsule endoscopy. In the meantime, patient was noted to have elevated troponins. Cardiology is following the patient closely. No cardiac intervention was performed until now. She also developed acute limb ischemia of the left lower extremity and hence underwent arteriogram with thrombectomy of the left common iliac artery performed by Dr. Braun this afternoon. Patient denies any abdominal pain. No nausea or vomiting. PHYSICAL EXAMINATION: Appears comfortable. No apparent distress. Vital signs are stable. Blood pressure 149/71, pulse rate 80, temperature 98. HEENT examination unremarkable. Conjunctivae pink. Sclerae anicteric. Oral cavity no lesions. NECK: No JVD or lymph node enlargement. CHEST: Clear to auscultation. HEART: Regular rate and rhythm. ABDOMEN: Soft. Benign. EXTREMITIES: No pedal edema. NEUROLOGIC: Alert and oriented x3. No focal deficits. LABS: WBC 15.3, hemoglobin 6.8, platelets 324. Rest of the labs are within normal limits. IMPRESSION: 1. Severe symptomatic anemia and iron indices consistent with iron deficiency anemia. EGD and colonoscopy done in the last 2 days were unremarkable. She is presently undergoing small bowel capsule endoscopy. 2. Left lower extremity limb ischemia. Vascular Surgery following the patient closely. She underwent a procedure with left common iliac thrombectomy. Presently on IV heparin. 3. Hypertension. 4. Hypothyroidism. 5. Elevated troponins. Cardiology following the patient closely. RECOMMENDATIONS: 1. Agree with one more unit of PRBC transfusion. 2. Monitor CBC on a daily basis. 3. Will await the capsule endoscopy results tomorrow once the study is done. 4. Continue IV heparin in the meantime. 5. Will follow with you closely. Thank you for this consultation. MMODL / IJN: [id number] /
[2020-02-04] MEDS: HEPARIN SOD,PORK IN 0.45% NACL 25,000 UNIT in 0.45% NACL 1 250ML.BAG IV SCH (22:22)
[2020-02-05 06:30] LABS: Anisocytosis Slight; HCT 28.4 % (34.0-46.0); HGB 8.5 gm/dL (11.4-16.0); Hypochromasia Marked; MCV 83.6 fL (80.0-100.0); Mean Platelet Volume 8.5; Platelet Count 310 k/uL (150-450); Poikilocytosis Marked; RDW 18.2 % (11.5-15.5); WBC 18.4 k/uL (3.8-10.6)
[2020-02-05 06:34] LABS: African American GFR (CKD) >90 (>60 ml/min/1.73 sqM); Anion Gap 5 mmol/L; Blood Urea Nitrogen 16 mg/dL (7-17); Calcium 8.1 mg/dL (8.4-10.2); Carbon Dioxide 26 mmol/L (22-30); Chloride 109 mmol/L (98-107); Glucose 90 mg/dL (74-99); Non-African American GFR(CKD) 82 (>60 ml/min/1.73 sqM); Sodium 140 mmol/L (137-145)
[2020-02-05 06:38] LABS: Band Neutrophils % 1 %; Lymphocytes # (M) 1.66 k/uL (1.0-4.8); Metamyelocytes # (M) 0.18 k/uL (0); Metamyelocytes % 1 %; Monocytes # (M) 1.47 k/uL (0-1.0); Neutrophils % (M) 81 %; Nucleated Red Blood Cells 0 /100 WBC (0-0); Total Cells Counted 100
[2020-02-05] MEDS: LEVOTHYROXINE 112 MCG TAB PO SCH (06:50)
[2020-02-05] MEDS: MORPHINE SULFATE 2 MG/ML SYRINGE IVP PRN ×3 (08:25→15:59)
[2020-02-05] MEDS: PANTOPRAZOLE 40 MG/10 ML VIAL IVP SCH ×2 (08:32→21:06)
[2020-02-05] MEDS: ATORVASTATIN 40 MG TAB PO SCH (08:32)
[2020-02-05] MEDS: lisinopriL 10 MG TAB PO SCH (08:32)
[2020-02-05] MEDS ORDERED: ONDANSETRON 4 MG/2 ML VIAL ONE (11:23)
[2020-02-05] MEDS ORDERED: LACTATED RINGERS 1,000 ML IV ONE (11:45)
[2020-02-05] MEDS ORDERED: MIDAZOLAM 2 MG/2 ML VIAL IVP ONE ×2 (12:21→12:25)
[2020-02-05] MEDS ORDERED: fentaNYL (PF) 50 MCG/ML 2 ML AMP IVP ONE ×2 (12:22→12:27)
[2020-02-05] MEDS ORDERED: ONDANSETRON 4 MG/2 ML VIAL IVP ONE (12:23)
--- NOTE | 2020-02-05 12:48 | P.ANPRN ---
Procedure Note - Anesthesia - Nerve Block Performed Left Other (see comment) Single Time Out Performed: Yes Date of Procedure: 02/05/20 Procedure Start Time: : Procedure Stop Time: : Location of Patient: PreOp Indication: Acute Post-Operative Pain, Analgesia, Requested by Surgeon Sedation Type: Sedate with meaningful contact maintained Preparation: Sterile Prep Position: Supine Catheter: None Needle Types: Pajunk Needle Gauge: 21 Ultrasound used to visualize needle placement: Yes Ultrasound used to observe medication spread: Yes Injectate: 0.5% Ropivacaine (see comment for volume) Blood Aspirated: No Pain Paresthesia on Injection Noted: No Resistance on Injection: Normal Image Stored and Saved: Yes Events: Uneventful and Well Tolerated
[2020-02-05] MEDS ORDERED: fentaNYL (PF) 50 MCG/ML 2 ML AMP ONE (12:57)
[2020-02-05] MEDS ORDERED: ROPIVACAINE 5 MG/ML 30 ML VIAL ONE (12:57)
[2020-02-05] MEDS ORDERED: MIDAZOLAM 2 MG/2 ML VIAL ONE (12:57)
[2020-02-05] MEDS ORDERED: ETOMIDATE 2 MG/ML 10 ML VIAL ONE (12:57)
[2020-02-05] MEDS ORDERED: SODIUM CHLORIDE 0.9% 100 ML with ceFAZolin 2,000 MG IV ONE ×2 (13:02)
--- NOTE | 2020-02-05 13:06 | P.PN ---
Subjective Patient is on [id number] female admitted for severe anemia. Patient up and he was confused at the time of admission although she is not confused at this time. Patient was evaluated by neurology patient doesn't appear to be encephalopathic at this time. Patient has elevated troponins which is believed secondary to anemia. Patient will undergo EGD on admission patient's hemoglobin was 6 patient doesn't have any evidence of or GI bleed at this time patient also has mildly elevated liver enzymes are do not have any repeat liver enzymes at t his time these will be repeated for tomorrow. Patient is alert oriented 2-3. Patient had a recent stroke and patient is on Plavix at home. This is being held because of her severe anemia and possibility of GI bleed that cannot be ruled out. Patient was also evaluated for left iliac occlusion by vascular surgery in the recommending dual antiplatelet therapy once her anemia issues addressed. 02/03/2020 Patient continues to have a elevated troponin. Patient had an upper GI endoscopy did not show any acute GI bleed and patient is undergoing colonoscopy today.10 02/04/2020 Patient underwent the angiogram of theof the extremities because of acute limb ischemia of the left lower extremity,underwent mechanical thrombectomy of left common iliac external iliac and the iliac Arteries where she had significant occlusions.probably will undergo cardiac catheterization tomorrow. Patient had a capsule endoscopy results of which are pending colonoscopy showed diverticulosis 02/05/2020 Basilar surgery is recommending fistulotomy. Cardiology is not planning on any cardiac catheterization at this time. Constitutional: Denied any fatigue denied any fever. Cardio vascular: denied any chest pain, palpitations Gastrointestinal denied any nausea vomiting Pulmonary: Denied any shortness of breath cough Neurologic denied any new focal deficits All inpatient medications were reviewed and appropriate changes in these medications as dictated in the interval history and assessment and plan. Objective - Vital Signs Vital signs: Vital Signs Temp 97.8 F 02/05/20 11:48 Pulse 70 02/05/20 12:35 Resp 18 02/05/20 12:35 BP 96/46 02/05/20 12:35 Pulse Ox 99 02/05/20 12:35 Intake & Output 02/04/20 02/05/20 02/05/20 18:59 06:59 18:59 Intake Total 310 506.5 400 Output Total 0 800 Balance 310 -293.5 400 Weight 91 kg Intake: IV 300 Intake, IV Titration 196.5 Amount Heparin Sod,Pork in 0.45% 196.5 NaCl 25,000 unit In 0.45 % NaCl 1 250ml.bag @ 11. 494 UNITS/KG/HR 10 mls/hr IV .Q24H [facility] Rx#: [id number] Oral 100 Blood Product 310 310 Rc Pheresis 2 As3 Unit 0 310 [id number] Rc Pheresis As-3 Unit 310 [id number] Output: Urine 0 800 Other: Voiding Method Bedpan Diaper Diaper Diaper # Voids 3 2 - Exam PHYSICAL EXAMINATION: GENERAL: The patient is alert and oriented x3, not in any acute distress. Well developed, well nourished. HEENT: Pupils are round and equally reacting to light. EOMI. No scleral icterus. Does have conjunctival pallor. Normocephalic, atraumatic. No pharyngeal erythema. No thyromegaly. CARDIOVASCULAR: S1 and S2 present. No murmurs, rubs, or gallops. PULMONARY: Chest is clear to auscultation, no wheezing or crackles. ABDOMEN: Soft, nontender, nondistended, normoactive bowel sounds. No palpable organomegaly. MUSCULOSKELETAL: No joint swelling or deformity. Left leg is swollen EXTREMITIES: No cyanosis, clubbing, NEUROLOGICAL: Gross neurological examination did not reveal any focal deficits. SKIN: No rashes. - Labs CBC & Chem 7: 02/05/20 06:03 02/05/20 06:03 Labs: Abnormal Lab Results - Last 24 Hours (Table) 02/04/20 02/04/20 02/05/20 Range/Units 15:00 15:00 06:03 WBC 15.3 H 18.4 H (3.8-10.6) k/uL RBC 2.94 L 3.40 L (3.80-5.40) m/uL Hgb 6.8 L* 8.5 L D (11.4-16.0) gm/dL Hct 23.7 L 28.4 L (34.0-46.0) % MCH 23.2 L (25.0-35.0) pg MCHC 28.8 L 30.0 L (31.0-37.0) g/dL RDW 19.2 H 18.2 H (11.5-15.5) % Neutrophils # 12.6 H (1.3-7.7) k/uL Neutrophils # (Manual) 15.00 H (1.3-7.7) k/uL Monocytes # (Manual) 1.47 H (0-1.0) k/uL Metamyelocytes # (Man) 0.18 H (0) k/uL Chloride (98-107) mmol/L Calcium (8.4-10.2) mg/dL Crossmatch See Detail 02/05/20 Range/Units 06:03 WBC (3.8-10.6) k/uL RBC (3.80-5.40) m/uL Hgb (11.4-16.0) gm/dL Hct (34.0-46.0) % MCH (25.0-35.0) pg MCHC (31.0-37.0) g/dL RDW (11.5-15.5) % Neutrophils # (1.3-7.7) k/uL Neutrophils # (Manual) (1.3-7.7) k/uL Monocytes # (Manual) (0-1.0) k/uL Metamyelocytes # (Man) (0) k/uL Chloride 109 H (98-107) mmol/L Calcium 8.1 L (8.4-10.2) mg/dL Crossmatch Microbiology - Last 24 Hours (Table) 02/01/20 02:29 Blood Culture - Preliminary Blood No Growth after 96 hours Assessment and Plan Plan: - non-ST elevation myocardial infarction: Secondary to anemia patient will be treated for anemia radiology evaluate the patient echo cardiac murmur was opted which did show some wall motion abnormalities, patient is being treated medically for non-ST elevation microinfarction cardiac is not planning on cardiac catheterization today -Severe anemia without any overt evidence of acuteGI bleed patient will undergo upper GI endoscopy patient received blood transfusion patient denied any chest pain at this time. Upper GI endoscopy did show any significant abnormality patient is status post colonoscopy in the presently undergoing capsule endoscopy no significant evidence of acute bleeding so far -Peripheral vascular disease with a severe left iliac occlusionpatient is status post thrombectomy, patient has significant sclerosis swelling and cold and clammy lives because of which patient will undergo fascia to me today -Recent cerebral vascular accident with mild residual weakness on the right side -Mildly elevated liver enzymes as they it's only mild elevation of repeat the liver enzymes again statin will be restarted again as the liver enzyme elevation is only minimal. -Leukocytosis without any evidence of infection
--- NOTE | 2020-02-05 13:46 | P.PN ---
Subjective Progress Note Date: 02/05/20 CHIEF COMPLAINT: Acute coronary syndrome HISTORY OF PRESENT ILLNESS: Patient examined this morning at the bedside. She underwent stent placement to her left iliac artery yesterday with Dr. Braun. Patient denies chest pain or shortness of breath. She remains on IV heparin per vascular surgery. Hemoglobin 8.5, up from 6.8 yesterday. She received 2 units RBCs. PHYSICAL EXAM: VITAL SIGNS: Reviewed. GENERAL: Well-developed in no acute distress. NECK: Supple. No JVD or thyromegaly LUNGS: Respirations even and unlabored. Lungs essentially clear to auscultation bilaterally. HEART: Regular rate and rhythm. S1 and S2 heard. EXTREMITIES: Normal range of motion. No clubbing or cyanosis. Peripheral pulses intact. No lower extremity edema ASSESSMENT: #1 acute coronary syndrome #2 severe anemia #3 hypertension #4 dyslipidemia #5 history of CVA PLAN: -Continue with conservative management at this time per Dr. Campos -Continue current medical regimen -Continue IV heparin per vascular surgery -Add aspirin 81mg daily -Decrease lisinopril to 2.5 mg daily -Add metoprolol 12.5mg BID Nurse practitioner note has been reviewed by physician. Signing provider agrees with the documented findings, assessment, and plan of care. Objective - Vital Signs Vital signs: Vital Signs Temp 99.0 F 02/05/20 04:00 Pulse 85 02/05/20 04:00 Resp 18 02/05/20 04:00 BP 129/58 02/05/20 04:00 Pulse Ox 95 02/05/20 05:00 Intake & Output 02/04/20 02/05/20 02/05/20 18:59 06:59 18:59 Intake Total 310 506.5 Output Total 0 800 Balance 310 -293.5 Weight 91 kg Intake: Intake, IV Titration 196.5 Amount Heparin Sod,Pork in 0.45% 196.5 NaCl 25,000 unit In 0.45 % NaCl 1 250ml.bag @ 11. 494 UNITS/KG/HR 10 mls/hr IV .Q24H [facility] Rx#: [id number] Blood Product 310 310 Rc Pheresis 2 As3 Unit 0 310 [id number] Rc Pheresis As-3 Unit 310 [id number] Output: Urine 0 800 Other: Voiding Method Bedpan Diaper Diaper # Voids 3 - Labs CBC & Chem 7: 02/05/20 06:03 02/05/20 06:03 Labs: Abnormal Lab Results - Last 24 Hours (Table) 02/04/20 02/04/20 02/05/20 Range/Units 15:00 15:00 06:03 WBC 15.3 H 18.4 H (3.8-10.6) k/uL RBC 2.94 L 3.40 L (3.80-5.40) m/uL Hgb 6.8 L* 8.5 L D (11.4-16.0) gm/dL Hct 23.7 L 28.4 L (34.0-46.0) % MCH 23.2 L (25.0-35.0) pg MCHC 28.8 L 30.0 L (31.0-37.0) g/dL RDW 19.2 H 18.2 H (11.5-15.5) % Neutrophils # 12.6 H (1.3-7.7) k/uL Neutrophils # (Manual) 15.00 H (1.3-7.7) k/uL Monocytes # (Manual) 1.47 H (0-1.0) k/uL Metamyelocytes # (Man) 0.18 H (0) k/uL Chloride (98-107) mmol/L Calcium (8.4-10.2) mg/dL Crossmatch See Detail 02/05/20 Range/Units 06:03 WBC (3.8-10.6) k/uL RBC (3.80-5.40) m/uL Hgb (11.4-16.0) gm/dL Hct (34.0-46.0) % MCH (25.0-35.0) pg MCHC (31.0-37.0) g/dL RDW (11.5-15.5) % Neutrophils # (1.3-7.7) k/uL Neutrophils # (Manual) (1.3-7.7) k/uL Monocytes # (Manual) (0-1.0) k/uL Metamyelocytes # (Man) (0) k/uL Chloride 109 H (98-107) mmol/L Calcium 8.1 L (8.4-10.2) mg/dL Crossmatch Microbiology - Last 24 Hours (Table) 02/01/20 02:29 Blood Culture - Preliminary Blood No Growth after 96 hours
--- NOTE | 2020-02-05 14:06 | P.OP ---
Date of Procedure: 02/05/20 Description of Procedure: Preoperative diagnosis: [Acute limb ischemia left lower extremity, acute coronary syndrome, NSTEMI anemia] Postoperative diagnosis: Same Procedure: [4 compartment fasciotomy of the left lower extremity] Surgeon: Dali Braun D.O. Anesthesia: LMA with regional block EBL: [Less than 20 mL] IV fluids: [See anesthesia records] Urine output: [Not measured] Drains: [None] Complications: [None immediately apparent] Condition: [Stable but critical to PACU] Operative indication and findings: [The patient is a 70-year-old female who initially came in with altered mental status and acute coronary syndrome with elevated troponins as well as significant anemia who was found to have a and iliac occlusion on initial computed tomography scan workup. She underwent evaluation for her anemia first prior to any cardiac workup and catheterization, it was finally deemed that she would be treated medically rather than with a catheterization and at that point long discussion was had with the family regarding the risk of going forth with any procedure for the peripheral. It was decided upon that we would go forth with a percutaneous procedure. An iliac stent was placed, there was residual popliteal and infrapopliteal occlusions with no significant reconstitution. The patient was found to not be a candidate for thrombotic due to her significant comorbid conditions. After the procedure she had increased capillary refill and subsequently had increasing pain in her leg. Due to this, it was felt she would benefit from a fasciotomy. Her foot was warmer although no significant Doppler flow was identified. Again the significant risk of the surgery was discussed with the family and they wanted to continue to try everything possible at this time.] Procedure in detail: [The patient was taken to the operative suite and placed in supine position. The left leg was prepped and draped in usual sterile fashion. A preprocedure regional block was performed. There was inadequate block therefore an LMA was placed. The anterior lateral compartments were addressed first. An incision in the skin was made at the intramuscular groove and carried down to the fascia. Transverse incision was made through the intramuscular septum and the fascia was transected in the caudad and cephalad directions. This was done for the anterior and lateral compartments. Attention was then turned towards the medial side of the leg for the deep and superficial posterior compartments an incision was made in the proximal 2 cm medial to the tibia and carried down to the fascia. The fascia was incised in the cephalad and caudad directions. Blunt dissection was then performed to the deep fascia which was incised. Hemostasis was controlled with electrocautery. Wet-to-dry dressings were placed. A light Gabe wrap was placed in an immobilizer. The inframammary anesthesia and transferred to recovery in stable condition.]
[2020-02-05] MEDS ORDERED: HYDROmorphone 0.5 MG/0.5 ML SYRINGE IVP ONE (14:40)
--- NOTE | 2020-02-05 16:07 | P.PN ---
Subjective Progress Note Date: 02/05/20 Patient seen and examined at the bedside with Dr. Braun. Patient is status postop day 1 for right iliofemoral angiogram, selective left lower extremity angiogram mechanical thrombectomy of the left common iliac, external iliac and internal iliac arteries, and left common iliac artery stent. Patient is lying on her left side with her left leg bent at the knee. Patient is moaning with pain with any palpation to the lower extremity from the knee down. Patient states there is pain in the left lower extremity. Denies pain to the right lower extremity. There is been no bleeding from the right groin site, pressure dressing remains intact. Patient remains somewhat confused at times. Continues with expressive aphasia. Patient is status post 2 units of blood transfusion after her procedure yesterday hemoglobin is now 8.5. The patient's heparin drip was resumed after surgery yesterday. Patient is without any signs or symptoms of any GI bleed, or any active bleeding from the right groin. Patient underwent small bowel capsule endoscopy yesterday, report still pending. Objective - Vital Signs Vital signs: Vital Signs Temp 99.0 F 02/05/20 04:00 Pulse 85 02/05/20 04:00 Resp 18 02/05/20 04:00 BP 129/58 02/05/20 04:00 Pulse Ox 95 02/05/20 05:00 Intake & Output 02/04/20 02/05/20 02/05/20 18:59 06:59 18:59 Intake Total 310 506.5 Output Total 0 800 Balance 310 -293.5 Weight 91 kg Intake: Intake, IV Titration 196.5 Amount Heparin Sod,Pork in 0.45% 196.5 NaCl 25,000 unit In 0.45 % NaCl 1 250ml.bag @ 11. 494 UNITS/KG/HR 10 mls/hr IV .Q24H [facility] Rx#: [id number] Blood Product 310 310 Rc Pheresis 2 As3 Unit 0 310 [id number] Rc Pheresis As-3 Unit 310 [id number] Output: Urine 0 800 Other: Voiding Method Bedpan Diaper Diaper # Voids 3 - Exam General appearance: The patient is alert, non-orientated. Obese. HET: Head is normocephalic and atraumatic. Pupils are equal and reactive. Neck: Supple without lymphadenopathy. Trachea midline. Heart: S1 S2. Regular rate and rhythm. Lungs: No crackles or wheezes are heard. Abdomen: Soft, nontender, nondistended with bowel sounds. Extremities: Normal skin color and turgor. No cyanosis, rash, ulceration, clubbing, or edema. 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 Palpable +2 radial pulses bilaterally. Palpable right femoral, popliteal, PT and DP pulses. Left lower extremity audible femoral signal. Unable to palpate popliteal, DP or PT pulses. Capillary refill less than 5 seconds on right lower extremity, improved capillary refill to left lower extremity with increased warmth to left lower extremity other than distal end of foot. The patient will not straighten her leg at the knee when asked, will not wiggle her toes or move her foot when asked. Patient does complain of pain when palpating and moving the left lower extremity. Neurological: Confused mentation. Follows simple commands. Still with expressive aphasia. - Labs CBC & Chem 7: 02/05/20 06:03 02/05/20 06:03 Labs: Abnormal Lab Results - Last 24 Hours (Table) 02/04/20 02/04/20 02/05/20 Range/Units 15:00 15:00 06:03 WBC 15.3 H 18.4 H (3.8-10.6) k/uL RBC 2.94 L 3.40 L (3.80-5.40) m/uL Hgb 6.8 L* 8.5 L D (11.4-16.0) gm/dL Hct 23.7 L 28.4 L (34.0-46.0) % MCH 23.2 L (25.0-35.0) pg MCHC 28.8 L 30.0 L (31.0-37.0) g/dL RDW 19.2 H 18.2 H (11.5-15.5) % Neutrophils # 12.6 H (1.3-7.7) k/uL Neutrophils # (Manual) 15.00 H (1.3-7.7) k/uL Monocytes # (Manual) 1.47 H (0-1.0) k/uL Metamyelocytes # (Man) 0.18 H (0) k/uL Chloride (98-107) mmol/L Calcium (8.4-10.2) mg/dL Crossmatch See Detail 08/07/20 Range/Units 06:03 WBC (3.8-10.6) k/uL RBC (3.80-5.40) m/uL Hgb (11.4-16.0) gm/dL Hct (34.0-46.0) % MCH (25.0-35.0) pg MCHC (31.0-37.0) g/dL RDW (11.5-15.5) % Neutrophils # (1.3-7.7) k/uL Neutrophils # (Manual) (1.3-7.7) k/uL Monocytes # (Manual) (0-1.0) k/uL Metamyelocytes # (Man) (0) k/uL Chloride 109 H (98-107) mmol/L Calcium 8.1 L (8.4-10.2) mg/dL Crossmatch Microbiology - Last 24 Hours (Table) 02/01/20 02:29 Blood Culture - Preliminary Blood No Growth after 96 hours Assessment and Plan Assessment: 1. Acute limb ischemia, left lower extremity 2. Postop day 1 right iliofemoral angiogram,, selective left lower extremity angiogram left common iliac artery stent, and mechanical thrombectomy of the left common iliac, external iliac, and internal iliac arteries 3. Left iliac artery occlusion approximately 95% 4. Pain in left lower extremity 5. Altered mental status changes 6. Acute coronary syndrome 7. NSTEMI 8. Severe iron deficiency Anemia 9. History of CVA Plan: Dr. Braun called the patient's daughter to discuss her recommendation for a fasciotomy of the left lower extremity. She discussed the risks of the procedure including her poor cardiac status and increased cardiac risk. The patient's daughter said to proceed with surgery. Heparin drip has been discontinued, patient has been nothing by mouth. Patient will have left lower extremity fasciotomy later this afternoon with Dr. Braun. Small bowel capsule endoscopy results pending. The above dictated assessment and findings were discussed with Dr. Braun. The impression and plan of care have been directed as dictated.
[2020-02-05] MEDS: HEPARIN SOD,PORK IN 0.45% NACL 25,000 UNIT in 0.45% NACL 1 250ML.BAG IV SCH (18:03)
[2020-02-05] MEDS: IPRATROPIUM-ALBUTEROL 3 ML NEB INHALATION PRN (19:31)
[2020-02-05] MEDS: BUDESONIDE 0.5 MG/2 ML NEBU INHALATION SCH (19:31)
[2020-02-05] MEDS ORDERED: METOPROLOL TARTRATE 12.5 MG TAB PO SCH (21:00)
[2020-02-06] MEDS: HEPARIN SOD,PORK IN 0.45% NACL 25,000 UNIT in 0.45% NACL 1 250ML.BAG IV SCH ×2 (01:38→18:49)
[2020-02-06] MEDS: HYDROcodone/APAP 5-325MG 1 EACH TAB PO PRN ×2 (03:15→21:16)
[2020-02-06] MEDS: LEVOTHYROXINE 112 MCG TAB PO SCH (06:34)
[2020-02-06 08:02] LABS: Anisocytosis Slight; Basophils % (A) 0 %; Eosinophils # (A) 0.1 k/uL (0-0.7); Eosinophils % (A) 0 %; HCT 27.7 % (34.0-46.0); HGB 8.1 gm/dL (11.4-16.0); Hypochromasia Marked; Lymphocytes # (A) 1.8 k/uL (1.0-4.8); Lymphocytes % (A) 9 %; MCH 24.7 pg (25.0-35.0); MCHC 29.3 g/dL (31.0-37.0); MCV 84.3 fL (80.0-100.0); Mean Platelet Volume 8.5; Monocytes # (A) 1.4 k/uL (0-1.0); Monocytes % (A) 7 %; Neutrophils # (A) 16.4 k/uL (1.3-7.7); Neutrophils % (A) 83 %; Platelet Count 329 k/uL (150-450); Poikilocytosis Marked; RBC 3.28 m/uL (3.80-5.40); RDW 18.5 % (11.5-15.5); WBC 19.9 k/uL (3.8-10.6)
[2020-02-06 08:11] LABS: Potassium 4.1 mmol/L (3.5-5.1)
[2020-02-06] MEDS: BUDESONIDE 0.5 MG/2 ML NEBU INHALATION SCH ×2 (08:19→20:15)
--- NOTE | 2020-02-06 08:51 | P.PN ---
Subjective Progress Note Date: 02/06/20 Principal diagnosis: Acute coronary syndrome This is a pleasant 70-year-old female patient who is somewhat poor historian with a past medical history significant for hypertension as well as dyslipidemia as well as history of stroke was brought to the emergency department with a change in mental status. The patient is a poor historian and she is unable to provide with any details. We consulted to see the patient because of abnormal troponin. The troponin is consistent with acute coronary syndrome as well as the EKG which showed sinus rhythm with ST changes in the inferolateral leads concerning for severe underlying coronary artery disease. During her hospital stay she underwent an echocardiogram which revealed mildly impaired LV function with EF of around 45% was evidence of moderate mitral regurgitation. More importantly, the patient was found to be anemic with a hemoglobin around 6 and currently she is in process of receiving packed RBC. No indication that the patient did have any evidence of GI bleed. No indication that the patient didn't have any symptoms of chest pain or chest discomfort or increasing in the shortness of breath. No dizziness or lightheadedness and no loss of consciousness or syncope. During this hospital stay she underwent a computed tomography scan of the chest and lower extremities and that revealed no evidence of aortic dissection but she was found to have severe disease involving the right iliac artery. Currently the patient is chest pain-free. She is on aspirin as well as statin as well as metoprolol at this point. The patient was seen today February [id number]. She denies any symptoms of chest pain or chest discomfort but she does have some shortness of breath. On examination she does have diminished breathing sounds bilaterally beach she sitting at 45 angle in bed. She underwent yesterday left lower extremity fasciotomy. She continues to be on heparin IV. She continues to be on aspirin as well as a statin as well as metoprolol. I'm going to increase the dose of metoprolol to control the heart rate and blood pressure. Also will obtain a BMP and a chest x-ray and continue following up with the patient. The hemoglobin continues to be stable. Objective - Vital Signs Vital signs: Vital Signs Temp 98.5 F 02/06/20 00:00 Pulse 74 02/06/20 08:25 Resp 19 02/06/20 04:00 BP 147/60 02/06/20 04:00 Pulse Ox 99 02/06/20 05:00 Intake & Output 02/05/20 02/06/20 02/06/20 18:59 06:59 18:59 Intake Total 1668 Output Total 20 Balance 1648 Weight 63 kg Intake: IV 500 Intake, IV Titration 950 Amount Heparin Sod,Pork in 0.45% 250 NaCl 25,000 unit In 0.45 % NaCl 1 250ml.bag @ 11. 494 UNITS/KG/HR 10 mls/hr IV .Q24H [facility] Rx#: [id number] Lactated Ringers 1,000 ml 300 @ 0 mls/hr IV [facility] Rx#:[id number] Sodium Chloride 0.9% 100 100 ml @ 0 mls/hr IV .[facility] with ceFAZolin 2,000 mg Rx#:[id number] Sodium Chloride 0.9% 500 300 ml 500 ml @ 0 mls/hr IV . [facility] Rx#: [id number] Oral 218 Output: Estimated Blood Loss 20 Other: Voiding Method Diaper Diaper # Voids 3 1 - Constitutional General appearance: Present: no acute distress - Respiratory Respiratory: bilateral: CTA - Cardiovascular Rhythm: regular Heart sounds: normal: S1, S2 - Labs CBC & Chem 7: 02/06/20 07:08 02/06/20 07:08 Labs: Abnormal Lab Results - Last 24 Hours (Table) 02/06/20 02/06/20 02/06/20 Range/Units 07:08 07:08 07:08 WBC 19.9 H (3.8-10.6) k/uL RBC 3.28 L (3.80-5.40) m/uL Hgb 8.1 L (11.4-16.0) gm/dL Hct 27.7 L (34.0-46.0) % MCH 24.7 L (25.0-35.0) pg MCHC 29.3 L (31.0-37.0) g/dL RDW 18.5 H (11.5-15.5) % Neutrophils # 16.4 H (1.3-7.7) k/uL Monocytes # 1.4 H (0-1.0) k/uL APTT 45.8 H (22.0-30.0) sec Chloride 110 H (98-107) mmol/L BUN 21 H (7-17) mg/dL Calcium 8.0 L (8.4-10.2) mg/dL Microbiology - Last 24 Hours (Table) 02/01/20 02:29 Blood Culture - Preliminary Blood No Growth after 120 hours Assessment and Plan Assessment: Assessment #1 acute coronary syndrome #2 severe anemia #3 hypertension #4 dyslipidemia #5 history of CVA #6 change in mental status Plan #1 consider conservative medical approach at this point in view of the low hemoglobin #2 continue the current medical regimen including aspirin as well as metoprolol as well as a statin #3 obtain a BNP and a chest x-ray #4 heparin to be managed by the vascular surgeon #5 antiplatelet and anticoagulation to be managed by the vascular surgeon #6 follow-up with the patient
--- NOTE | 2020-02-06 10:07 | P.PN ---
Subjective Progress Note Date: 02/06/20 Patient seen and examined. No overt complaints. States that her leg feels better today than yesterday. Still with some pain in her leg. Objective - Vital Signs Vital signs: Vital Signs Temp 99 F 02/06/20 08:55 Pulse 86 02/06/20 08:55 Resp 18 02/06/20 08:55 BP 115/56 02/06/20 08:55 Pulse Ox 97 02/06/20 08:55 Intake & Output 02/05/20 02/06/20 02/06/20 18:59 06:59 18:59 Intake Total 1668 180 Output Total 20 Balance 1648 180 Weight 63 kg Intake: IV 500 Intake, IV Titration 950 Amount Heparin Sod,Pork in 0.45% 250 NaCl 25,000 unit In 0.45 % NaCl 1 250ml.bag @ 11. 494 UNITS/KG/HR 10 mls/hr IV .Q24H [facility] Rx#: [id number] Lactated Ringers 1,000 ml 300 @ 0 mls/hr IV .STK-MED ONE Rx#:[id number] Sodium Chloride 0.9% 100 100 ml @ 0 mls/hr IV .STK-MED ONE with ceFAZolin 2,000 mg Rx#:[id number] Sodium Chloride 0.9% 500 300 ml 500 ml @ 0 mls/hr IV . STK-MED ONE Rx#: [id number] Oral 218 180 Output: Estimated Blood Loss 20 Other: Voiding Method Diaper Diaper # Voids 3 1 - Exam No acute distress, resting comfortably sitting up in bed. Left lower extremity warm to the level of the ankle, slightly cooler at the foot. Delayed but overall improvement in capillary refill. Decreased tenderness to palpation of the calf. Decreased tenderness to pain on passive motion. - Labs CBC & Chem 7: 02/06/20 07:08 02/06/20 07:08 Labs: Abnormal Lab Results - Last 24 Hours (Table) 02/06/20 02/06/20 02/06/20 Range/Units 07:08 07:08 07:08 WBC 19.9 H (3.8-10.6) k/uL RBC 3.28 L (3.80-5.40) m/uL Hgb 8.1 L (11.4-16.0) gm/dL Hct 27.7 L (34.0-46.0) % MCH 24.7 L (25.0-35.0) pg MCHC 29.3 L (31.0-37.0) g/dL RDW 18.5 H (11.5-15.5) % Neutrophils # 16.4 H (1.3-7.7) k/uL Monocytes # 1.4 H (0-1.0) k/uL APTT 45.8 H (22.0-30.0) sec Chloride 110 H (98-107) mmol/L BUN 21 H (7-17) mg/dL Calcium 8.0 L (8.4-10.2) mg/dL Microbiology - Last 24 Hours (Table) 02/01/20 02:29 Blood Culture - Preliminary Blood No Growth after 120 hours Assessment and Plan Assessment: Acute left lower extremity limb ischemia status post mechanical thrombectomy and iliac stent placement, now on heparin Acute coronary syndrome Anemia Plan: Hemoglobin has remained stable, will continue heparin at this time. Begin increasing her activity as tolerated. Await further demarcation of ischemic tissues. Maintain knee immobilizer to keep her leg straight. Daily dressing changes wet-to-dry dressings.
--- NOTE | 2020-02-06 10:17 | XR ---
EXAMINATION TYPE: XR chest 1V DATE OF EXAM: 02/06/2020 COMPARISON: 02/01/2020 HISTORY: Shortness of breath TECHNIQUE: Single frontal view of the chest is obtained. FINDINGS: There is a by basilar infiltrate and small left effusion new from the prior exam. Heart is prominent in the central mild coarsened interstitium. No pneumothorax. Diffuse osteopenia with shoul jensen arthropathy and probable calcific tendinosis on the left. Atherosclerotic change aorta. IMPRESSION: 1. Interval development of small bilateral effusions and basilar consolidation. Correlate for mild ve nous congestion otherwise consider early pneumonia.
[2020-02-06] MEDS: METOPROLOL TARTRATE 25 MG TAB PO SCH ×2 (10:19→21:15)
[2020-02-06] MEDS: ASPIRIN 81 MG PO SCH (10:19)
[2020-02-06] MEDS: ATORVASTATIN 40 MG TAB PO SCH (10:19)
[2020-02-06] MEDS: PANTOPRAZOLE 40 MG/10 ML VIAL IVP SCH ×2 (10:19→21:15)
--- NOTE | 2020-02-06 14:17 | P.PN ---
Subjective Patient is on [id number] female admitted for severe anemia. Patient up and he was confused at the time of admission although she is not confused at this time. Patient was evaluated by neurology patient doesn't appear to be encephalopathic at this time. Patient has elevated troponins which is believed secondary to anemia. Patient will undergo EGD on admission patient's hemoglobin was 6 patient doesn't have any evidence of or GI bleed at this time patient also has mildly elevated liver enzymes are do not have any repeat liver enzymes at t his time these will be repeated for tomorrow. Patient is alert oriented 2-3. Patient had a recent stroke and patient is on Plavix at home. This is being held because of her severe anemia and possibility of GI bleed that cannot be ruled out. Patient was also evaluated for left iliac occlusion by vascular surgery in the recommending dual antiplatelet therapy once her anemia issues addressed. 02/03/2020 Patient continues to have a elevated troponin. Patient had an upper GI endoscopy did not show any acute GI bleed and patient is undergoing colonoscopy today.10 02/04/2020 Patient underwent the angiogram of theof the extremities because of acute limb ischemia of the left lower extremity,underwent mechanical thrombectomy of left common iliac external iliac and the iliac Arteries where she had significant occlusions.probably will undergo cardiac catheterization tomorrow. Patient had a capsule endoscopy results of which are pending colonoscopy showed diverticulosis 02/05/2020 Basilar surgery is recommending fistulotomy. Cardiology is not planning on any cardiac catheterization at this time. 02/06/2020 Patient is status post fasciotomy. Patient whether cell continued to go up and no significant fevers this is probably because of the procedure this patient to me if it continues to go up tomorrow we'll workup for sepsis at the time Constitutional: Denied any fatigue denied any fever. Cardio vascular: denied any chest pain, palpitations Gastrointestinal denied any nausea vomiting Pulmonary: Denied any shortness of breath cough Neurologic denied any new focal deficits All inpatient medications were reviewed and appropriate changes in these medications as dictated in the interval history and assessment and plan. Objective - Vital Signs Vital signs: Vital Signs Temp 99 F 02/06/20 08:55 Pulse 86 02/06/20 08:55 Resp 18 02/06/20 08:55 BP 115/56 02/06/20 08:55 Pulse Ox 97 02/06/20 08:55 Intake & Output 02/05/20 02/06/20 02/06/20 18:59 06:59 18:59 Intake Total 1668 180 Output Total 20 Balance 1648 180 Weight 63 kg Intake: IV 500 Intake, IV Titration 950 Amount Heparin Sod,Pork in 0.45% 250 NaCl 25,000 unit In 0.45 % NaCl 1 250ml.bag @ 11. 494 UNITS/KG/HR 10 mls/hr IV .Q24H [facility] Rx#: [id number] Lactated Ringers 1,000 ml 300 @ 0 mls/hr IV .STK-MED ONE Rx#:[id number] Sodium Chloride 0.9% 100 100 ml @ 0 mls/hr IV .STK-MED ONE with ceFAZolin 2,000 mg Rx#:[id number] Sodium Chloride 0.9% 500 300 ml 500 ml @ 0 mls/hr IV . STK-MED ONE Rx#: [id number] Oral 218 180 Output: Estimated Blood Loss 20 Other: Voiding Method Diaper Diaper # Voids 3 1 - Exam PHYSICAL EXAMINATION: GENERAL: The patient is alert and oriented x3, not in any acute distress. Well developed, well nourished. HEENT: Pupils are round and equally reacting to light. EOMI. No scleral icterus. Does have conjunctival pallor. Normocephalic, atraumatic. No pharyngeal erythema. No thyromegaly. CARDIOVASCULAR: S1 and S2 present. No murmurs, rubs, or gallops. PULMONARY: Chest is clear to auscultation, no wheezing or crackles. ABDOMEN: Soft, nontender, nondistended, normoactive bowel sounds. No palpable organomegaly. MUSCULOSKELETAL: No joint swelling or deformity. Left leg is swollen EXTREMITIES: No cyanosis, clubbing, NEUROLOGICAL: Gross neurological examination did not reveal any focal deficits. SKIN: No rashes. - Labs CBC & Chem 7: 02/06/20 07:08 02/06/20 07:08 Labs: Abnormal Lab Results - Last 24 Hours (Table) 02/06/20 02/06/20 02/06/20 Range/Units 07:08 07:08 07:08 WBC 19.9 H (3.8-10.6) k/uL RBC 3.28 L (3.80-5.40) m/uL Hgb 8.1 L (11.4-16.0) gm/dL Hct 27.7 L (34.0-46.0) % MCH 24.7 L (25.0-35.0) pg MCHC 29.3 L (31.0-37.0) g/dL RDW 18.5 H (11.5-15.5) % Neutrophils # 16.4 H (1.3-7.7) k/uL Monocytes # 1.4 H (0-1.0) k/uL APTT 45.8 H (22.0-30.0) sec Chloride 110 H (98-107) mmol/L BUN 21 H (7-17) mg/dL Calcium 8.0 L (8.4-10.2) mg/dL Microbiology - Last 24 Hours (Table) 02/01/20 02:29 Blood Culture - Preliminary Blood No Growth after 120 hours Assessment and Plan Plan: - non-ST elevation myocardial infarction: Secondary to anemia patient will be treated for anemia radiology evaluate the patient echo cardiac murmur was opted which did show some wall motion abnormalities, patient is being treated medically for non-ST elevation microinfarction cardiac is not planning on cardiac catheterization today -Severe anemia without any overt evidence of acuteGI bleed patient will undergo upper GI endoscopy patient received blood transfusion patient denied any chest pain at this time. Upper GI endoscopy did show any significant abnormality patient is status post colonoscopy in the presently undergoing capsule endoscopy no significant evidence of acute bleeding so far -Peripheral vascular disease with a severe left iliac occlusionpatient is status post thrombectomy, patient has significant sclerosis swelling and cold and clammy lives because of which patient will undergo fascia to me today -Recent cerebral vascular accident with mild residual weakness on the right side -Mildly elevated liver enzymes as they it's only mild elevation of repeat the liver enzymes again statin will be restarted again as the liver enzyme elevation is only minimal. -Leukocytosis without any evidence of infection
[2020-02-06] MEDS: MORPHINE SULFATE 2 MG/ML SYRINGE IVP PRN (23:42)
[2020-02-07] MEDS: LEVOTHYROXINE 112 MCG TAB PO SCH (06:08)
[2020-02-07 06:49] LABS: Anisocytosis Slight; HCT 26.6 % (34.0-46.0); HGB 7.7 gm/dL (11.4-16.0); Hypochromasia Marked; MCH 24.6 pg (25.0-35.0); MCV 84.9 fL (80.0-100.0); Mean Platelet Volume 9.3; Platelet Count 340 k/uL (150-450); Poikilocytosis Moderate; RBC 3.13 m/uL (3.80-5.40); RDW 18.7 % (11.5-15.5); WBC 16.3 k/uL (3.8-10.6)
[2020-02-07 06:58] LABS: Calcium 7.8 mg/dL (8.4-10.2)
[2020-02-07] MEDS: BUDESONIDE 0.5 MG/2 ML NEBU INHALATION SCH ×2 (08:33→19:37)
--- NOTE | 2020-02-07 09:34 | P.PN ---
Subjective Progress Note Date: 02/07/20 Principal diagnosis: Acute coronary syndrome This is a pleasant 70-year-old female patient who is somewhat poor historian with a past medical history significant for hypertension as well as dyslipidemia as well as history of stroke was brought to the emergency department with a change in mental status. The patient is a poor historian and she is unable to provide with any details. We consulted to see the patient because of abnormal troponin. The troponin is consistent with acute coronary syndrome as well as the EKG which showed sinus rhythm with ST changes in the inferolateral leads concerning for severe underlying coronary artery disease. During her hospital stay she underwent an echocardiogram which revealed mildly impaired LV function with EF of around 45% was evidence of moderate mitral regurgitation. More importantly, the patient was found to be anemic with a hemoglobin around 6 and currently she is in process of receiving packed RBC. No indication that the patient did have any evidence of GI bleed. No indication that the patient didn't have any symptoms of chest pain or chest discomfort or increasing in the shortness of breath. No dizziness or lightheadedness and no loss of consciousness or syncope. During this hospital stay she underwent a computed tomography scan of the chest and lower extremities and that revealed no evidence of aortic dissection but she was found to have severe disease involving the right iliac artery. Currently the patient is chest pain-free. She is on aspirin as well as statin as well as metoprolol at this point. The patient was seen today February [id number]. She remains asymptomatic from a cardiovascular standpoint of view. She remains hemodynamically stable as well. When she was seen yesterday she was sitting at 45 and she was short of breath. On examination she did have bilateral lower extremities crackles. The chest x- ray showed pulmonary vascular congestions. The BNP came in to be elevated. When she was evaluated today the shortness of breath is slightly better and her physical examination overall is a slightly better. I am going to start the patient on Aldactone. Beside that she continues to be on heparin IV and that has been managed by the vascular surgery team. She underwent fasciectomy. Objective - Vital Signs Vital signs: Vital Signs Temp 98.9 F 02/07/20 03:41 Pulse 68 02/07/20 03:41 Resp 18 02/07/20 03:41 BP 107/60 02/07/20 03:41 Pulse Ox 96 02/07/20 03:41 Intake & Output 02/06/20 02/07/20 02/07/20 18:59 06:59 18:59 Intake Total 630 427.296 Output Total 875 300 Balance -245 127.296 Weight 61.5 kg Intake: Intake, IV Titration 250 187.296 Amount Heparin Sod,Pork in 0.45% 250 187.296 NaCl 25,000 unit In 0.45 % NaCl 1 250ml.bag @ 11. 494 UNITS/KG/HR 10 mls/hr IV .Q24H [facility] Rx#: [id number] Oral 380 240 Output: Urine 875 300 Straight 800 Other: Voiding Method Indwelling Catheter Indwelling Catheter - Constitutional General appearance: Present: no acute distress - Respiratory Respiratory: bilateral: diminished - Cardiovascular Rhythm: regular Heart sounds: normal: S1, S2 - Labs CBC & Chem 7: 02/07/20 06:02 02/07/20 06:02 Labs: Abnormal Lab Results - Last 24 Hours (Table) 02/07/20 02/07/20 02/07/20 Range/Units 06:02 06:02 06:02 WBC 16.3 H (3.8-10.6) k/uL RBC 3.13 L (3.80-5.40) m/uL Hgb 7.7 L (11.4-16.0) gm/dL Hct 26.6 L (34.0-46.0) % MCH 24.6 L (25.0-35.0) pg MCHC 29.0 L (31.0-37.0) g/dL RDW 18.7 H (11.5-15.5) % APTT 43.1 H (22.0-30.0) sec Chloride 112 H (98-107) mmol/L BUN 26 H (7-17) mg/dL Calcium 7.8 L (8.4-10.2) mg/dL Microbiology - Last 24 Hours (Table) 02/01/20 02:29 Blood Culture - Final Blood No Growth after 144 hours Assessment and Plan Assessment: Assessment #1 acute coronary syndrome #2 ischemic cardiomyopathy #3 congestive heart failure exacerbation secondary to systolic dysfunction #4 acute limb ischemia #5 multiple comorbid conditions Plan #1 continue the current medical regimen including aspirin, metoprolol, lisinopril, and statin #2 add Aldactone to the current medical regimen #3 the heparin to be managed by the vascular surgery team #4 follow-up with the patient
[2020-02-07] MEDS: ATORVASTATIN 40 MG TAB PO SCH (10:16)
[2020-02-07] MEDS: METOPROLOL TARTRATE 25 MG TAB PO SCH ×2 (10:17→20:47)
[2020-02-07] MEDS: ASPIRIN 81 MG PO SCH (10:17)
[2020-02-07] MEDS: PANTOPRAZOLE 40 MG/10 ML VIAL IVP SCH ×2 (10:17→20:47)
[2020-02-07] MEDS: HEPARIN SOD,PORK IN 0.45% NACL 25,000 UNIT in 0.45% NACL 1 250ML.BAG IV SCH (11:02)
[2020-02-07] MEDS ORDERED: traMADol 50 MG TAB PO PRN (11:59)
--- NOTE | 2020-02-07 13:12 | P.PN ---
Subjective Patient is on [id number] female admitted for severe anemia. Patient up and he was confused at the time of admission although she is not confused at this time. Patient was evaluated by neurology patient doesn't appear to be encephalopathic at this time. Patient has elevated troponins which is believed secondary to anemia. Patient will undergo EGD on admission patient's hemoglobin was 6 patient doesn't have any evidence of or GI bleed at this time patient also has mildly elevated liver enzymes are do not have any repeat liver enzymes at t his time these will be repeated for tomorrow. Patient is alert oriented 2-3. Patient had a recent stroke and patient is on Plavix at home. This is being held because of her severe anemia and possibility of GI bleed that cannot be ruled out. Patient was also evaluated for left iliac occlusion by vascular surgery in the recommending dual antiplatelet therapy once her anemia issues addressed. 02/03/2020 Patient continues to have a elevated troponin. Patient had an upper GI endoscopy did not show any acute GI bleed and patient is undergoing colonoscopy today.10 02/04/2020 Patient underwent the angiogram of theof the extremities because of acute limb ischemia of the left lower extremity,underwent mechanical thrombectomy of left common iliac external iliac and the iliac Arteries where she had significant occlusions.probably will undergo cardiac catheterization tomorrow. Patient had a capsule endoscopy results of which are pending colonoscopy showed diverticulosis 02/05/2020 Basilar surgery is recommending fistulotomy. Cardiology is not planning on any cardiac catheterization at this time. 02/06/2020 Patient is status post fasciotomy. Patient whether cell continued to go up and no significant fevers this is probably because of the procedure this patient to me if it continues to go up tomorrow we'll workup for sepsis at the time 02/07/2020 Patient is is looking better today. She remains on IV heparin. Cardiology is recommending IV heparin anymore but will discuss with vascular surgery if it's okay to discontinue IV heparin. Chest x-ray showing small bilateral pleural effusions. Patient is on now Aldactone which will be continued. Patient clinically doesn't appear to be in heart failure exacerbation her white blood cell count is improving and are reactive Rx at this time Constitutional: Denied any fatigue denied any fever. Cardio vascular: denied any chest pain, palpitations Gastrointestinal denied any nausea vomiting Pulmonary: Denied any shortness of breath cough Neurologic denied any new focal deficits All inpatient medications were reviewed and appropriate changes in these medications as dictated in the interval history and assessment and plan. Objective - Vital Signs Vital signs: Vital Signs Temp 98.9 F 02/07/20 08:00 Pulse 75 02/07/20 08:00 Resp 20 02/07/20 08:00 BP 105/56 02/07/20 08:00 Pulse Ox 96 02/07/20 08:00 Intake & Output 02/06/20 02/07/20 02/07/20 18:59 06:59 18:59 Intake Total 630 427.296 62.704 Output Total 875 300 Balance -245 127.296 62.704 Weight 61.5 kg Intake: Intake, IV Titration 250 187.296 62.704 Amount Heparin Sod,Pork in 0.45% 250 187.296 62.704 NaCl 25,000 unit In 0.45 % NaCl 1 250ml.bag @ 11. 494 UNITS/KG/HR 10 mls/hr IV .Q24H [facility] Rx#: [id number] Oral 380 240 Output: Urine 875 300 Straight 800 Other: Voiding Method Indwelling Catheter Indwelling Catheter - Exam PHYSICAL EXAMINATION: GENERAL: The patient is alert and oriented x3, not in any acute distress. Well developed, well nourished. HEENT: Pupils are round and equally reacting to light. EOMI. No scleral icterus. Does have conjunctival pallor. Normocephalic, atraumatic. No pharyngeal erythema. No thyromegaly. CARDIOVASCULAR: S1 and S2 present. No murmurs, rubs, or gallops. PULMONARY: Chest is clear to auscultation, no wheezing or crackles. ABDOMEN: Soft, nontender, nondistended, normoactive bowel sounds. No palpable organomegaly. MUSCULOSKELETAL: No joint swelling or deformity. Left leg is swollen EXTREMITIES: No cyanosis, clubbing, NEUROLOGICAL: Gross neurological examination did not reveal any focal deficits. SKIN: No rashes. - Labs CBC & Chem 7: 02/07/20 06:02 02/07/20 06:02 Labs: Abnormal Lab Results - Last 24 Hours (Table) 02/07/20 02/07/20 02/07/20 Range/Units 06:02 06:02 06:02 WBC 16.3 H (3.8-10.6) k/uL RBC 3.13 L (3.80-5.40) m/uL Hgb 7.7 L (11.4-16.0) gm/dL Hct 26.6 L (34.0-46.0) % MCH 24.6 L (25.0-35.0) pg MCHC 29.0 L (31.0-37.0) g/dL RDW 18.7 H (11.5-15.5) % APTT 43.1 H (22.0-30.0) sec Chloride 112 H (98-107) mmol/L BUN 26 H (7-17) mg/dL Calcium 7.8 L (8.4-10.2) mg/dL Microbiology - Last 24 Hours (Table) 02/01/20 02:29 Blood Culture - Final Blood No Growth after 144 hours Assessment and Plan Plan: - non-ST elevation myocardial infarction: Because of comorbidities cardiology is recommending medical management. Cardiology is not planning any acute radiation before discharge agent will be discharged tomorrow -Severe anemia without any overt evidence of acuteGI bleed patient will undergo upper GI endoscopy patient received blood transfusion patient denied any chest pain at this time. Upper GI endoscopy did show any significant abnormality patient is status post colonoscopy, capsule endoscopy did not show any evidence of lead -Peripheral vascular disease with a severe left iliac occlusionpatient is status post thrombectomy, patient's status for stroke. Patient had a meal of the left leg. On IV heparin probably can be discontinued if agreeable by vascular surgery -Recent cerebral vascular accident with mild residual weakness on the right side -Mildly elevated liver enzymes as they it's only mild elevation of repeat the liver enzymes again statin will be restarted again as the liver enzyme elevation is only minimal. -Leukocytosis without any evidence of infection
[2020-02-07] MEDS: IPRATROPIUM-ALBUTEROL 3 ML NEB INHALATION PRN (19:37)
--- NOTE | 2020-02-07 21:56 | P.PN ---
Subjective Progress Note Date: 02/07/20 Principal diagnosis: Severe iron deficiency anemia Patient was seen lying in bed in no acute complaints. Tolerating diet. Denies any signs or symptoms of GI bleeding. Objective - Vital Signs Vital signs: Vital Signs Temp 98.9 F 02/07/20 03:41 Pulse 68 02/07/20 03:41 Resp 18 02/07/20 03:41 BP 107/60 02/07/20 03:41 Pulse Ox 96 02/07/20 03:41 Intake & Output 02/06/20 02/07/20 02/07/20 18:59 06:59 18:59 Intake Total 630 427.296 Output Total 875 300 Balance -245 127.296 Weight 61.5 kg Intake: Intake, IV Titration 250 187.296 Amount Heparin Sod,Pork in 0.45% 250 187.296 NaCl 25,000 unit In 0.45 % NaCl 1 250ml.bag @ 11. 494 UNITS/KG/HR 10 mls/hr IV .Q24H [facility] Rx#: [id number] Oral 380 240 Output: Urine 875 300 Straight 800 Other: Voiding Method Indwelling Catheter Indwelling Catheter - Exam On physical examination, patient appears comfortable in no apparent distress. HEAD: Normocephalic, atraumatic. EYES: No scleral icterus. No conjunctival injection. MOUTH: No lesions, tongue midline. HEART: Regular rate and rhythm. ABDOMEN: Soft, obese. Bowel sounds are positive. No organomegaly. No guarding or rigidity. EXTREMITIES: No pedal edema. SKIN: No rashes, no jaundice. NEUROLOGIC: Alert and oriented. - Labs CBC & Chem 7: 02/07/20 06:02 02/07/20 06:02 Labs: Abnormal Lab Results - Last 24 Hours (Table) 02/07/20 02/07/20 02/07/20 Range/Units 06:02 06:02 06:02 WBC 16.3 H (3.8-10.6) k/uL RBC 3.13 L (3.80-5.40) m/uL Hgb 7.7 L (11.4-16.0) gm/dL Hct 26.6 L (34.0-46.0) % MCH 24.6 L (25.0-35.0) pg MCHC 29.0 L (31.0-37.0) g/dL RDW 18.7 H (11.5-15.5) % APTT 43.1 H (22.0-30.0) sec Chloride 112 H (98-107) mmol/L BUN 26 H (7-17) mg/dL Calcium 7.8 L (8.4-10.2) mg/dL Microbiology - Last 24 Hours (Table) 02/01/20 02:29 Blood Culture - Final Blood No Growth after 144 hours Assessment and Plan (1) Iron deficiency anemia Narrative/Plan: 70-year-old with multiple medical comorbidities who seemed to GI service for severe iron deficiency anemia. EGD was normal, colonoscopy with findings of diverticulosis and small internal hemorrhoids. Video capsule endoscopy was performed in evaluation with findings of multiple small bowel angiectasia without active bleeding noted. Current Visit: Yes Status: Acute Code(s): D50.9 - IRON DEFICIENCY ANEMIA, UNSPECIFIED SNOMED Code(s): 09829812 Plan: Supportive care Okay for diet as tolerated Continue to monitor hemoglobin and hematocrit and transfuse as needed Ferrous sulfate twice a day ordered Video capsule endoscopy reviewed with no active bleeding seen, however a few small bowel angiectasia were noted scattered throughout the small bowel, given these findings and the patient's severe iron deficiency anemia on presentation the patient does remain high risk for bleeding on anticoagulation therapy, however if anticoagulation therapy is required due to multiple underlying comorbidities would recommend close follow-up in the outpatient setting by primary care provider of hemoglobin as well as continued iron supplementation which had been added today Thank you for allowing us to participate in the care of the patient, the GI service will stand by these calls back with any questions or concerns
[2020-02-08] MEDS: HEPARIN SOD,PORK IN 0.45% NACL 25,000 UNIT in 0.45% NACL 1 250ML.BAG IV SCH ×2 (00:12→12:40)
[2020-02-08] MEDS: FERROUS SULFATE 325 MG TAB PO SCH ×2 (06:30→17:29)
[2020-02-08] MEDS: LEVOTHYROXINE 112 MCG TAB PO SCH (06:30)
[2020-02-08] MEDS: BUDESONIDE 0.5 MG/2 ML NEBU INHALATION SCH ×3 (08:15→20:19)
[2020-02-08] MEDS: PANTOPRAZOLE 40 MG/10 ML VIAL IVP SCH ×2 (08:50→19:59)
[2020-02-08] MEDS: SPIRONOLACTONE 25 MG TAB PO SCH (08:51)
[2020-02-08] MEDS: ASPIRIN 81 MG PO SCH (08:51)
[2020-02-08] MEDS: ATORVASTATIN 40 MG TAB PO SCH (08:51)
[2020-02-08] MEDS: HYDROcodone/APAP 5-325MG 1 EACH TAB PO PRN ×2 (08:51→19:59)
[2020-02-08] MEDS: METOPROLOL TARTRATE 25 MG TAB PO SCH ×2 (08:51→19:59)
[2020-02-08] MEDS ORDERED: RIVAROXABAN 2.5 MG TABLET PO SCH (09:45)
[2020-02-08 10:06] LABS: African American GFR (CKD) >90 (>60 ml/min/1.73 sqM); Anion Gap 5 mmol/L; Blood Urea Nitrogen 17 mg/dL (7-17); Calcium 7.9 mg/dL (8.4-10.2); Carbon Dioxide 22 mmol/L (22-30); Chloride 112 mmol/L (98-107); Glucose 98 mg/dL (74-99); Non-African American GFR(CKD) >90 (>60 ml/min/1.73 sqM); Potassium 3.9 mmol/L (3.5-5.1); Sodium 139 mmol/L (137-145)
[2020-02-08 10:48] LABS: Anisocytosis Slight; Basophils % (A) 0 %; Eosinophils # (A) 0.1 k/uL (0-0.7); Eosinophils % (A) 1 %; HGB 7.8 gm/dL (11.4-16.0); Hypochromasia Marked; Lymphocytes # (A) 1.2 k/uL (1.0-4.8); Lymphocytes % (A) 8 %; MCH 24.7 pg (25.0-35.0); MCV 85.4 fL (80.0-100.0); Mean Platelet Volume 10.6; Monocytes # (A) 1.2 k/uL (0-1.0); Monocytes % (A) 8 %; Neutrophils # (A) 12.2 k/uL (1.3-7.7); Neutrophils % (A) 82 %; Platelet Count 369 k/uL (150-450); Poikilocytosis Moderate; RBC 3.16 m/uL (3.80-5.40); RDW 18.7 % (11.5-15.5); WBC 14.9 k/uL (3.8-10.6)
--- NOTE | 2020-02-08 11:00 | P.PN ---
Subjective Progress Note Date: 02/08/20 CHIEF COMPLAINT: Acute coronary syndrome HISTORY OF PRESENT ILLNESS: Patient examined this morning at the bedside. She underwent stent placement to her left iliac artery and left lower leg fasciotomy with Dr. Braun. Patient denies chest pain or shortness of breath. She has been switched to Xarelto per vascular surgery. Hemoglobin 7.7. PHYSICAL EXAM: VITAL SIGNS: Reviewed. GENERAL: Well-developed in no acute distress. NECK: Supple. No JVD or thyromegaly LUNGS: Respirations even and unlabored. Lungs essentially clear to auscultation bilaterally. HEART: Regular rate and rhythm. S1 and S2 heard. EXTREMITIES: Normal range of motion. Patient with immobilizer to left lower extremity. No lower extremity edema ASSESSMENT: #1 acute coronary syndrome #2 ischemic cardiomyopathy #3 congestive heart failure exacerbation secondary to systolic dysfunction #4 acute limb ischemia #5 multiple comorbid conditions PLAN: -Continue conservative management from a cardiac standpoint -Continue current medical regimen including aspirin, lipitor, lisinopril, lopressor, and aldactone -Continue anticoagulation per vascular surgery Nurse practitioner note has been reviewed by physician. Signing provider agrees with the documented findings, assessment, and plan of care. Objective - Vital Signs Vital signs: Vital Signs Temp 98.5 F 02/08/20 03:24 Pulse 75 02/08/20 03:24 Resp 18 02/08/20 03:24 BP 110/66 02/08/20 03:24 Pulse Ox 96 02/08/20 03:24 Intake & Output 02/07/20 02/08/20 02/08/20 18:59 06:59 18:59 Intake Total 662.704 386.680 151.431 Output Total 600 400 Balance 62.704 -13.320 151.431 Weight 94.5 kg Intake: Intake, IV Titration 512.704 236.680 151.431 Amount Heparin Sod,Pork in 0.45% 62.704 236.680 151.431 NaCl 25,000 unit In 0.45 % NaCl 1 250ml.bag @ 11. 494 UNITS/KG/HR 10 mls/hr IV .Q24H [facility] Rx#: [id number] Sodium Chloride 0.9% 500 450 ml 500 ml @ 0 mls/hr IV . [facility] Rx#: [id number] Oral 150 150 Output: Urine 600 400 Other: Voiding Method Indwelling Catheter Indwelling Catheter - Labs CBC & Chem 7: 02/08/20 06:50 02/08/20 06:50 Labs: Abnormal Lab Results - Last 24 Hours (Table) 02/07/20 02/07/20 02/07/20 Range/Units 12:33 16:43 22:18 APTT 31.1 H 41.6 H 46.9 H (22.0-30.0) sec 02/08/20 Range/Units 06:50 APTT 41.3 H (22.0-30.0) sec Microbiology - Last 24 Hours (Table) 02/01/20 02:29 Blood Culture - Final Blood No Growth after 144 hours
[2020-02-08 11:38] LABS: Mixed Population RBC Present
[2020-02-08] MEDS ORDERED: HEPARIN SODIUM,PORCINE 5,000 UNIT/ML 1 ML VIAL IV PRN (12:19)
--- NOTE | 2020-02-08 13:42 | P.PN ---
Subjective Progress Note Date: 02/08/20 Patient seen and examined lying in bed. Patient is postop day 3 for left lower extremity fasciotomy. Patient has been anemic, she is status post EGD and colonoscopy without any source of bleed. Small bowel endoscopy capsule showed few angiectasia without evidence of bleeding. Today's hemoglobin is stable at 7.8. She is NSTEMI with cardiology following doing conservative medical management. He remains on a heparin drip, down any signs of an active bleed. Nurse reports she is refusing to swallow her pills. Patient has knee immobilizer on. Patient states she has pain to left lower extremity. No acute changes through the night. Objective - Vital Signs Vital signs: Vital Signs Temp 98.0 F 02/08/20 12:00 Pulse 75 02/08/20 12:00 Resp 18 02/08/20 12:00 BP 122/63 02/08/20 12:00 Pulse Ox 97 02/08/20 12:00 Intake & Output 02/07/20 02/08/20 02/08/20 18:59 06:59 18:59 Intake Total 662.704 386.680 301.431 Output Total 600 400 200 Balance 62.704 -13.320 101.431 Weight 94.5 kg 94.5 kg Intake: Intake, IV Titration 512.704 236.680 151.431 Amount Heparin Sod,Pork in 0.45% 62.704 236.680 151.431 NaCl 25,000 unit In 0.45 % NaCl 1 250ml.bag @ 11. 494 UNITS/KG/HR 10 mls/hr IV .Q24H [facility] BEDS AT [facility] Rx#: [id number] Sodium Chloride 0.9% 500 450 ml 500 ml @ 0 mls/hr IV . [facility] Rx#: [id number] Oral 150 150 150 Output: Urine 600 400 200 Other: Voiding Method Indwelling Catheter Indwelling Catheter Indwelling Catheter # Voids 1 - Exam Patient alert but still somewhat confused. Moaning in pain with any palpation to the left lower extremity from the knee down. Left foot mottled and cool to touch. Absent DP Doppler signal. Biphasic PT Doppler signal. Delayed capillary refill to left lower extremity. Left lower extremity fasciotomy site dressings changed. Sites are clean dry and well approximated without any active bleeding. Left lateral fasciotomy site to the muscle. Wet-to-dry dressing reapplied. During the dressing changes patient was moaning in pain. Once manipulation was done, patient did seem to settle down. - Labs CBC & Chem 7: 02/08/20 06:50 02/08/20 06:50 Labs: Abnormal Lab Results - Last 24 Hours (Table) 02/07/20 02/07/20 02/07/20 Range/Units 12:33 16:43 22:18 WBC (3.8-10.6) k/uL RBC (3.80-5.40) m/uL Hgb (11.4-16.0) gm/dL Hct (34.0-46.0) % MCH (25.0-35.0) pg MCHC (31.0-37.0) g/dL RDW (11.5-15.5) % Neutrophils # (1.3-7.7) k/uL Monocytes # (0-1.0) k/uL APTT 31.1 H 41.6 H 46.9 H (22.0-30.0) sec Chloride (98-107) mmol/L Calcium (8.4-10.2) mg/dL 02/08/20 02/08/20 02/08/20 Range/Units 06:50 06:50 06:50 WBC 14.9 H (3.8-10.6) k/uL RBC 3.16 L (3.80-5.40) m/uL Hgb 7.8 L (11.4-16.0) gm/dL Hct 27.0 L (34.0-46.0) % MCH 24.7 L (25.0-35.0) pg MCHC 29.0 L (31.0-37.0) g/dL RDW 18.7 H (11.5-15.5) % Neutrophils # 12.2 H (1.3-7.7) k/uL Monocytes # 1.2 H (0-1.0) k/uL APTT 41.3 H (22.0-30.0) sec Chloride 112 H (98-107) mmol/L Calcium 7.9 L (8.4-10.2) mg/dL Assessment and Plan Assessment: 1. Acute limb ischemia, left lower extremity 2. Status postop day 3 left lower extremity fasciotomy 3. Status post right iliofemoral angiogram,, selective left lower extremity angiogram left common iliac artery stent, and mechanical thrombectomy of the left common iliac, external iliac, and internal iliac arteries 4. Left iliac artery occlusion approximately 95% 5. Pain in left lower extremity 6. Altered mental status changes 7. Acute coronary syndrome 8. NSTEMI 9. Severe iron deficiency Anemia 10. History of CVA Plan: I discussed the examination findings with Dr. Braun. Will await Dr. Hoyos to further assess patient. Initial plan was to start patient on Xarelto 2.5 mg twice a day and discontinue heparin drip. However patient may require a left [id number] amputation during this hospitalization. Xarelto has been discontinued,and patient to continue heparin drip until further notified. We will plan tentatively for above the knee amputation Saturday with Dr. Braun. Further recommendations to follow. The above dictated assessment and findings were discussed with Dr Hoyos. The impression and plan of care have been directed as dictated.
--- NOTE | 2020-02-08 14:52 | P.PN ---
Subjective Progress Note Date: 02/08/20 Principal diagnosis: Patient is a 70-year-old female admitted for severe anemia. Patient up and she was confused at the time of admission although she is not confused at this time. Patient was evaluated by neurology patient doesn't appear to be encephalopathic at this time. Patient has elevated troponins which is believed secondary to anemia. Patient will undergo EGD on admission patient's hemoglobin was 6 patient doesn't have any evidence of or GI bleed at this time patient also has mildly elevated liver enzymes are do not have any repeat liver enzymes at this time these will be repeated for tomorrow. Patient is alert oriented 2-3. Patient had a recent stroke and patient is on Plavix at home. This is being held because of her severe anemia and possibility of GI bleed that cannot be ruled out. Patient was also evaluated for left iliac occlusion by vascular monsalve rgery in the recommending dual antiplatelet therapy once her anemia issues addressed. 02/03/2020 Patient continues to have a elevated troponin. Patient had an upper GI endoscopy did not show any acute GI bleed and patient is undergoing colonoscopy today. 02/04/2020 Patient underwent the angiogram of theof the extremities because of acute limb ischemia of the left lower extremity,underwent mechanical thrombectomy of left common iliac external iliac and the iliac Arteries where she had significant occlusions.probably will undergo cardiac catheterization tomorrow. Patient had a capsule endoscopy results of which are pending colonoscopy showed diverticulosis 02/05/2020 Vascular surgery is recommending fasciotomy. Cardiology is not planning on any cardiac catheterization at this time. 02/06/2020 Patient is status post fasciotomy. Patient whether cell continued to go up and no significant fevers this is probably because of the procedure this patient to me if it continues to go up tomorrow we'll workup for sepsis at the time 02/07/2020 Patient is is looking better today. She remains on IV heparin. Cardiology is recommending IV heparin anymore but will discuss with vascular surgery if it's okay to discontinue IV heparin. Chest x-ray showing small bilateral pleural effusions. Patient is on now Aldactone which will be continued. Patient clinically doesn't appear to be in heart failure exacerbation her white blood cell count is improving and are reactive Rx at this time Constitutional: Denied any fatigue denied any fever. Cardio vascular: denied any chest pain, palpitations Gastrointestinal denied any nausea vomiting Pulmonary: Denied any shortness of breath cough Neurologic denied any new focal deficits All inpatient medications were reviewed and appropriate changes in these medications as dictated in the interval history and assessment and plan. 02/08/2020 Patient is seen and evaluated in follow-up and continues to be on IV heparin with the possibility of vascular surgery performing a BKA. Patient continues to have poor oral intake and needs encouragement. No need for enteral nutrition at this time. Will continue to monitor closely. No reports of chest pain or palpitations. Patient is afebrile. No reports of shortness of breath. Hemoglobin today is 7.8. White blood count is trending down and 14.9. Objective - Vital Signs Vital signs: Vital Signs Temp 98.0 F 02/08/20 12:00 Pulse 75 02/08/20 12:00 Resp 18 02/08/20 12:00 BP 122/63 02/08/20 12:00 Pulse Ox 97 02/08/20 12:00 Intake & Output 02/07/20 02/08/20 02/08/20 18:59 06:59 18:59 Intake Total 662.704 386.680 301.431 Output Total 600 400 200 Balance 62.704 -13.320 101.431 Weight 94.5 kg 94.5 kg Intake: Intake, IV Titration 512.704 236.680 151.431 Amount Heparin Sod,Pork in 0.45% 62.704 236.680 151.431 NaCl 25,000 unit In 0.45 % NaCl 1 250ml.bag @ 11. 494 UNITS/KG/HR 10 mls/hr IV .Q24H [facility] Rx#: [id number] Sodium Chloride 0.9% 500 450 ml 500 ml @ 0 mls/hr IV . [facility] Rx#: [id number] Oral 150 150 150 Output: Urine 600 400 200 Other: Voiding Method Indwelling Catheter Indwelling Catheter Indwelling Catheter # Voids 1 - Exam GENERAL: The patient is alert and oriented x3, not in any acute distress. Well developed, well nourished. HEENT: Pupils are round and equally reacting to light. EOMI. No scleral icterus. Does have conjunctival pallor. Normocephalic, atraumatic. No pharyngeal erythema. No thyromegaly. CARDIOVASCULAR: S1 and S2 present. No murmurs, rubs, or gallops. PULMONARY: Chest is clear to auscultation, no wheezing or crackles. ABDOMEN: Soft, nontender, nondistended, normoactive bowel sounds. No palpable organomegaly. MUSCULOSKELETAL: No joint swelling or deformity. Left leg is swollen EXTREMITIES: No cyanosis, clubbing, NEUROLOGICAL: Gross neurological examination did not reveal any focal deficits. SKIN: No rashes. - Labs CBC & Chem 7: 02/08/20 06:50 02/08/20 06:50 Labs: Abnormal Lab Results - Last 24 Hours (Table) 02/07/20 02/07/20 02/08/20 Range/Units 16:43 22:18 06:50 WBC (3.8-10.6) k/uL RBC (3.80-5.40) m/uL Hgb (11.4-16.0) gm/dL Hct (34.0-46.0) % MCH (25.0-35.0) pg MCHC (31.0-37.0) g/dL RDW (11.5-15.5) % Neutrophils # (1.3-7.7) k/uL Monocytes # (0-1.0) k/uL APTT 41.6 H 46.9 H 41.3 H (22.0-30.0) sec Chloride (98-107) mmol/L Calcium (8.4-10.2) mg/dL 02/08/20 02/08/20 Range/Units 06:50 06:50 WBC 14.9 H (3.8-10.6) k/uL RBC 3.16 L (3.80-5.40) m/uL Hgb 7.8 L (11.4-16.0) gm/dL Hct 27.0 L (34.0-46.0) % MCH 24.7 L (25.0-35.0) pg MCHC 29.0 L (31.0-37.0) g/dL RDW 18.7 H (11.5-15.5) % Neutrophils # 12.2 H (1.3-7.7) k/uL Monocytes # 1.2 H (0-1.0) k/uL APTT (22.0-30.0) sec Chloride 112 H (98-107) mmol/L Calcium 7.9 L (8.4-10.2) mg/dL Assessment and Plan Assessment: - non-ST elevation myocardial infarction: Because of comorbidities cardiology is recommending medical management. Cardiology is not planning any acute interventions or cardiac catheterization at this time. -Severe anemia without any overt evidence of acute GI bleed patient, hemoglobin today is 7.8. -Peripheral vascular disease with a severe left iliac occlusion patient is status post thrombectomy and fasciotomy. To continue on IV heparin as patient may possibly undergo BKA. Vascular surgery following. -Recent cerebral vascular accident with mild residual weakness on the right side -Mildly elevated liver enzymes, will repeat a.m. labs -Leukocytosis without any evidence of infection Plan: Continue current medications, management, and symptomatic treatment. Continue to encourage oral intake. Patient is to be continued on IV heparin at this time with the possibility of a BKA of the left lower extremity with vascular surgery. Will repeat a.m. labs. Further recommendations to follow. Case management and social work also following as patient will be going to ECF once stabilized and discharged. Cardiology also following recommending to continue with medical management and no surgical intervention of cardiac catheterization is planned at this time. Prognosis is guarded.
[2020-02-09] MEDS: HEPARIN SOD,PORK IN 0.45% NACL 25,000 UNIT in 0.45% NACL 1 250ML.BAG IV SCH ×2 (01:30→08:48)
[2020-02-09 07:45] LABS: ALT 39 U/L (4-34); AST 66 U/L (14-36); African American GFR (CKD) >90 (>60 ml/min/1.73 sqM); Anion Gap 3 mmol/L; Blood Urea Nitrogen 15 mg/dL (7-17); Calcium 7.7 mg/dL (8.4-10.2); Carbon Dioxide 24 mmol/L (22-30); Chloride 113 mmol/L (98-107); Glucose 94 mg/dL (74-99); Non-African American GFR(CKD) 90 (>60 ml/min/1.73 sqM); Potassium 3.7 mmol/L (3.5-5.1); Sodium 140 mmol/L (137-145)
[2020-02-09 07:57] LABS: Anisocytosis Slight; Basophils % (A) 0 %; Eosinophils # (A) 0.1 k/uL (0-0.7); Eosinophils % (A) 0 %; HCT 26.8 % (34.0-46.0); HGB 7.7 gm/dL (11.4-16.0); Hypochromasia Marked; Lymphocytes # (A) 1.5 k/uL (1.0-4.8); Lymphocytes % (A) 9 %; MCH 24.3 pg (25.0-35.0); MCHC 28.7 g/dL (31.0-37.0); MCV 84.5 fL (80.0-100.0); Mean Platelet Volume 10.3; Monocytes # (A) 1.4 k/uL (0-1.0); Monocytes % (A) 8 %; Neutrophils # (A) 14.3 k/uL (1.3-7.7); Neutrophils % (A) 82 %; Platelet Count 397 k/uL (150-450); Poikilocytosis Moderate; RBC 3.17 m/uL (3.80-5.40); RDW 18.7 % (11.5-15.5); WBC 17.5 k/uL (3.8-10.6)
[2020-02-09] MEDS: PANTOPRAZOLE 40 MG/10 ML VIAL IVP SCH ×2 (08:47→20:39)
[2020-02-09] MEDS: LEVOTHYROXINE 112 MCG TAB PO SCH (08:48)
[2020-02-09] MEDS: ATORVASTATIN 40 MG TAB PO SCH (08:48)
[2020-02-09] MEDS: METOPROLOL TARTRATE 25 MG TAB PO SCH ×2 (08:48→20:34)
[2020-02-09] MEDS: SPIRONOLACTONE 25 MG TAB PO SCH (08:48)
[2020-02-09] MEDS: ASPIRIN 81 MG PO SCH (08:48)
[2020-02-09] MEDS: FERROUS SULFATE 325 MG TAB PO SCH ×2 (08:48→14:05)
[2020-02-09] MEDS: BUDESONIDE 0.5 MG/2 ML NEBU INHALATION SCH ×2 (08:57→20:32)
--- NOTE | 2020-02-09 09:23 | P.PN ---
Subjective Progress Note Date: 02/09/20 Patient was seen and examined at the bedside. When entering the room the patient was soundly asleep. The nurse reports that the patient was able to get the immobilizer off the left lower extremity through the night. She also reports that the patient is refusing to eat. She had no acute changes through the night. Denies any fevers or chills. Denies any redness of breath or chest pain. Heparin drip has continued per protocol. Cardiology on consult, continues with medical management. Objective - Vital Signs Vital signs: Vital Signs Temp 97.9 F 02/09/20 03:49 Pulse 79 02/09/20 03:49 Resp 16 02/09/20 03:49 BP 115/74 02/09/20 03:49 Pulse Ox 96 02/09/20 03:49 Intake & Output 02/08/20 02/09/20 02/09/20 18:59 06:59 18:59 Intake Total 661.431 250 165.148 Output Total 200 630 Balance 461.431 -380 165.148 Weight 94.5 kg 94 kg Intake: Intake, IV Titration 511.431 250 165.148 Amount Heparin Sod,Pork in 0.45% 151.431 NaCl 25,000 unit In 0.45 % NaCl 1 250ml.bag @ 11. 494 UNITS/KG/HR 10 mls/hr IV .Q24H [facility] Rx#: [id number] Heparin Sod,Pork in 0.45% 240 250 165.148 NaCl 25,000 unit In 0.45 % NaCl 1 250ml.bag @ 23. 94 UNITS/KG/HR 22.623 mls /hr IV .Q11H4M [facility] Rx#: [id number] Sodium Chloride 0.9% 100 120 ml @ 0 mls/hr IV .[facility] with ceFAZolin 2,000 mg Rx#:[id number] Oral 150 Output: Urine 200 630 Other: Voiding Method Indwelling Catheter Indwelling Catheter # Voids 1 - Exam Patient alert but still somewhat confused. Heart regular rate and rhythm, lungs clear to auscultation bilaterally. Left foot mottled and cool to touch. Absent DP Doppler signal. Biphasic PT Doppler signal. Delayed capillary refill to left lower extremity. Left lower extremity fasciotomy dressings are clean dry and intact. Patient moaning with palpation to the left lower extremity from the knee down. Patient is unable to her left foot are wiggle toes. - Labs CBC & Chem 7: 02/09/20 06:20 02/09/20 06:20 Labs: Abnormal Lab Results - Last 24 Hours (Table) 02/08/20 02/08/20 02/08/20 Range/Units 06:50 06:50 09:43 WBC 14.9 H (3.8-10.6) k/uL RBC 3.16 L (3.80-5.40) m/uL Hgb 7.8 L (11.4-16.0) gm/dL Hct 27.0 L (34.0-46.0) % MCH 24.7 L (25.0-35.0) pg MCHC 29.0 L (31.0-37.0) g/dL RDW 18.7 H (11.5-15.5) % Neutrophils # 12.2 H (1.3-7.7) k/uL Monocytes # 1.2 H (0-1.0) k/uL APTT (22.0-30.0) sec Chloride 112 H (98-107) mmol/L Calcium 7.9 L (8.4-10.2) mg/dL AST (14-36) U/L ALT (4-34) U/L CK-MB (CK-2) 11.1 H (0.0-2.4) ng/mL 02/08/20 02/09/20 02/09/20 Range/Units 14:26 06:20 06:20 WBC 17.5 H (3.8-10.6) k/uL RBC 3.17 L (3.80-5.40) m/uL Hgb 7.7 L (11.4-16.0) gm/dL Hct 26.8 L (34.0-46.0) % MCH 24.3 L (25.0-35.0) pg MCHC 28.7 L (31.0-37.0) g/dL RDW 18.7 H (11.5-15.5) % Neutrophils # (1.3-7.7) k/uL Monocytes # (0-1.0) k/uL APTT 45.6 H (22.0-30.0) sec Chloride 113 H (98-107) mmol/L Calcium 7.7 L (8.4-10.2) mg/dL AST 66 H (14-36) U/L ALT 39 H (4-34) U/L CK-MB (CK-2) (0.0-2.4) ng/mL 02/09/20 Range/Units 06:20 WBC (3.8-10.6) k/uL RBC (3.80-5.40) m/uL Hgb (11.4-16.0) gm/dL Hct (34.0-46.0) % MCH (25.0-35.0) pg MCHC (31.0-37.0) g/dL RDW (11.5-15.5) % Neutrophils # (1.3-7.7) k/uL Monocytes # (0-1.0) k/uL APTT 56.3 H (22.0-30.0) sec Chloride (98-107) mmol/L Calcium (8.4-10.2) mg/dL AST (14-36) U/L ALT (4-34) U/L CK-MB (CK-2) (0.0-2.4) ng/mL Assessment and Plan Assessment: 1. Acute limb ischemia, left lower extremity 2. Status postop day 3 left lower extremity fasciotomy 3. Status post right iliofemoral angiogram,, selective left lower extremity angiogram left common iliac artery stent, and mechanical thrombectomy of the left common iliac, external iliac, and internal iliac arteries 4. Left iliac artery occlusion approximately 95% 5. Pain in left lower extremity 6. Altered mental status changes 7. Acute coronary syndrome 8. NSTEMI 9. Severe iron deficiency Anemia 10. History of CVA Plan: Continue heparin drip at this time. Plan is to discontinue heparin drip at midnight prior to scheduled [id number] amputation tomorrow. Daily wet-to-dry dressing changes. Continue with pain control. Repeat labs in the morning. Dr. Braun will contact patient's daughter to discuss plan of care for recommendation of a left amgbm-[id number] amputation. The above dictated assessment and findings were discussed with Dr. Braun. The impression and plan of care have been directed as dictated.
[2020-02-09] MEDS: HYDROcodone/APAP 5-325MG 1 EACH TAB PO PRN (10:21)
--- NOTE | 2020-02-09 11:39 | PN ---
PROGRESS NOTE Mrs. Olvera is a 70-year-old female who has a history of peripheral disease, status post acute non ischemia with left lower extremity fasciotomy and right iliofemoral angiogram. She has a history of cerebrovascular accident and presented with evidence of acute coronary syndrome. She had evidence of mildly impaired left ventricular systolic function. She is still complaining of left lower extremity discomfort. She denies any chest discomfort. She denies any dizziness or palpitations. She continues to be in sinus mechanism. She continues to be at this time on aspirin once a day, Lipitor 40 mg daily, IV heparin, lisinopril 20 mg daily, metoprolol tartrate 25 mg twice a day, Aldactone 25 mg daily. PHYSICAL EXAMINATION: Blood pressure 115/70 with a heart rate in the 70s. LUNGS: Clear. HEART: Regular rate and rhythm, S1, S2. No S3. No rub appreciated with a systolic ejection murmur. ABDOMEN: Soft, nontender, obese. EXTREMITIES: Immobilizer noted on the left lower extremity with mild tenderness. LAB DATA: Revealed hemoglobin 7.7. BUN and creatinine 15 and 0.65. IMPRESSION: 1. Non ST-segment elevation myocardial infarction with no evidence of recurrent myocardial infarction. 2. Peripheral vessel disease with obstructive disease on left side, status post left lower fasciotomy. 3. Anemia. 4. Hyperlipidemia. 5. Ischemic cardiomyopathy. RECOMMENDATION: From the cardiac standpoint, will continue on the present regimen. I will follow her renal function closely. The anticoagulation will be managed by the vascular surgeon. And depending on her progress, further recommendation will be made. MMODL / EDUN: [id number] /
--- NOTE | 2020-02-09 15:22 | P.PN ---
Subjective Progress Note Date: 02/09/20 Principal diagnosis: Patient is a 70-year-old female admitted for severe anemia. Patient up and she was confused at the time of admission although she is not confused at this time. Patient was evaluated by neurology patient doesn't appear to be encephalopathic at this time. Patient has elevated troponins which is believed secondary to anemia. Patient will undergo EGD on admission patient's hemoglobin was 6 patient doesn't have any evidence of or GI bleed at this time patient also has mildly elevated liver enzymes are do not have any repeat liver enzymes at this time these will be repeated for tomorrow. Patient is alert oriented 2-3. Patient had a recent stroke and patient is on Plavix at home. This is being held because of her severe anemia and possibility of GI bleed that cannot be ruled out. Patient was also evaluated for left iliac occlusion by vascular monsalve rgery in the recommending dual antiplatelet therapy once her anemia issues addressed. 02/03/2020 Patient continues to have a elevated troponin. Patient had an upper GI endoscopy did not show any acute GI bleed and patient is undergoing colonoscopy today. 02/04/2020 Patient underwent the angiogram of theof the extremities because of acute limb ischemia of the left lower extremity,underwent mechanical thrombectomy of left common iliac external iliac and the iliac Arteries where she had significant occlusions.probably will undergo cardiac catheterization tomorrow. Patient had a capsule endoscopy results of which are pending colonoscopy showed diverticulosis 02/05/2020 Vascular surgery is recommending fasciotomy. Cardiology is not planning on any cardiac catheterization at this time. 02/06/2020 Patient is status post fasciotomy. Patient whether cell continued to go up and no significant fevers this is probably because of the procedure this patient to me if it continues to go up tomorrow we'll workup for sepsis at the time 02/07/2020 Patient is is looking better today. She remains on IV heparin. Cardiology is recommending IV heparin anymore but will discuss with vascular surgery if it's okay to discontinue IV heparin. Chest x-ray showing small bilateral pleural effusions. Patient is on now Aldactone which will be continued. Patient clinically doesn't appear to be in heart failure exacerbation her white blood cell count is improving and are reactive Rx at this time Constitutional: Denied any fatigue denied any fever. Cardio vascular: denied any chest pain, palpitations Gastrointestinal denied any nausea vomiting Pulmonary: Denied any shortness of breath cough Neurologic denied any new focal deficits All inpatient medications were reviewed and appropriate changes in these medications as dictated in the interval history and assessment and plan. 02/08/2020 Patient is seen and evaluated in follow-up and continues to be on IV heparin with the possibility of vascular surgery performing a BKA. Patient continues to have poor oral intake and needs encouragement. No need for enteral nutrition at this time. Will continue to monitor closely. No reports of chest pain or palpitations. Patient is afebrile. No reports of shortness of breath. Hemoglobin today is 7.8. White blood count is trending down and 14.9. 02/09/2020 Patient is seen in follow-up today continues to be lethargic and moans when assessing the left lower extremity. Nursing staff patient managed to get the knee immobilizer off as she continues to be quite restless at times. Patient has been refusing to eat and per nursing staff has been coughing with small bites that are being fed to her. Patient will be nothing by mouth for now. Patient is scheduled to be nothing by mouth at midnight she will be undergoing left [id number] amputation with vascular surgery in the morning. Cardiology also following. Patient is maintained on IV heparin and will continue at this time. Hemoglobin is 7.7 today. White blood count slightly elevated at 17.5. Patient is afebrile. Objective - Vital Signs Vital signs: Vital Signs Temp 96.9 F L 02/09/20 08:00 Pulse 79 02/09/20 10:58 Resp 16 02/09/20 10:58 BP 140/68 02/09/20 08:00 Pulse Ox 96 02/09/20 08:00 Intake & Output 02/08/20 02/09/20 02/09/20 18:59 06:59 18:59 Intake Total 661.431 250 965.148 Output Total 200 630 Balance 461.431 -380 965.148 Weight 94.5 kg 94 kg Intake: Intake, IV Titration 511.431 250 765.148 Amount Heparin Sod,Pork in 0.45% 151.431 NaCl 25,000 unit In 0.45 % NaCl 1 250ml.bag @ 11. 494 UNITS/KG/HR 10 mls/hr IV .Q24H [facility] Rx#: [id number] Heparin Sod,Pork in 0.45% 240 250 165.148 NaCl 25,000 unit In 0.45 % NaCl 1 250ml.bag @ 23. 94 UNITS/KG/HR 22.623 mls /hr IV .Q11H4M [facility] Rx#: [id number] Sodium Chloride 0.9% 100 120 ml @ 0 mls/hr IV .STK-MED ONE with ceFAZolin 2,000 mg Rx#:[id number] Sodium Chloride 0.9% 500 600 ml 500 ml @ 0 mls/hr IV . [facility] Rx#: [id number] Oral 150 200 Output: Urine 200 630 Other: Voiding Method Indwelling Catheter Indwelling Catheter Indwelling Catheter # Voids 1 - Exam GENERAL: The patient is alert and oriented x1-2, not in any acute distress. Well developed, well nourished. HEENT: Pupils are round and equally reacting to light. EOMI. No scleral icterus. Does have conjunctival pallor. Normocephalic, atraumatic. No pharyngeal erythema. No thyromegaly. CARDIOVASCULAR: S1 and S2 present. No murmurs, rubs, or gallops. PULMONARY: Diminished breath sounds bilaterally, no wheezing and a few scattered crackles noted. ABDOMEN: Soft, nontender, nondistended, normoactive bowel sounds. No palpable organomegaly. MUSCULOSKELETAL: No joint swelling or deformity. Left leg is swollen and extremely painful to the touch, left lower extremity is cold and mottled EXTREMITIES: No cyanosis, clubbing, NEUROLOGICAL: Gross neurological examination did not reveal any focal deficits. SKIN: No rashes. - Labs CBC & Chem 7: 02/09/20 06:20 02/09/20 06:20 Labs: Abnormal Lab Results - Last 24 Hours (Table) 02/08/20 02/08/20 02/09/20 Range/Units 09:43 14:26 06:20 WBC (3.8-10.6) k/uL RBC (3.80-5.40) m/uL Hgb (11.4-16.0) gm/dL Hct (34.0-46.0) % MCH (25.0-35.0) pg MCHC (31.0-37.0) g/dL RDW (11.5-15.5) % Neutrophils # (1.3-7.7) k/uL Monocytes # (0-1.0) k/uL APTT 45.6 H (22.0-30.0) sec Chloride 113 H (98-107) mmol/L Calcium 7.7 L (8.4-10.2) mg/dL AST 66 H (14-36) U/L ALT 39 H (4-34) U/L CK-MB (CK-2) 11.1 H (0.0-2.4) ng/mL 02/09/20 02/09/20 Range/Units 06:20 06:20 WBC 17.5 H (3.8-10.6) k/uL RBC 3.17 L (3.80-5.40) m/uL Hgb 7.7 L (11.4-16.0) gm/dL Hct 26.8 L (34.0-46.0) % MCH 24.3 L (25.0-35.0) pg MCHC 28.7 L (31.0-37.0) g/dL RDW 18.7 H (11.5-15.5) % Neutrophils # 14.3 H (1.3-7.7) k/uL Monocytes # 1.4 H (0-1.0) k/uL APTT 56.3 H (22.0-30.0) sec Chloride (98-107) mmol/L Calcium (8.4-10.2) mg/dL AST (14-36) U/L ALT (4-34) U/L CK-MB (CK-2) (0.0-2.4) ng/mL Assessment and Plan Assessment: -non-ST elevation myocardial infarction: Because of comorbidities cardiology is recommending medical management. Cardiology is not planning any acute interventions or cardiac catheterization at this time. -Severe anemia without any overt evidence of acute GI bleed patient, hemoglobin today is 7.7. -Peripheral vascular disease with a severe left iliac occlusion patient is status post thrombectomy and fasciotomy. To continue on IV heparin as patient is scheduled to undergo AKA tomorrow with vascular surgery -Recent cerebral vascular accident with mild residual weakness on the right side -Mildly elevated liver enzymes, improved -Leukocytosis most likely reactive, without any evidence of infection Plan: Continue current medications, management, and symptomatic treatment. Patient is nothing by mouth at this time as nursing staff reports the patient is coughing with small bites of pured food. Patient is to be continued on IV heparin at this time as patient will be undergoing [id number] amputation of the left lower extremity in the morning with vascular surgery. Will repeat a.m. labs. Further recommendations to follow. Case management and social work also following as patient will be going to ECF once stabilized and discharged. Cardiology also following recommending to continue with medical management and no surgical intervention of cardiac catheterization is planned at this time. Prognosis is guarded.
[2020-02-10] MEDS: HEPARIN SOD,PORK IN 0.45% NACL 25,000 UNIT in 0.45% NACL 1 250ML.BAG IV SCH ×3 (01:19→20:25)
[2020-02-10] MEDS: FERROUS SULFATE 325 MG TAB PO SCH ×2 (04:38→17:55)
[2020-02-10] MEDS: LEVOTHYROXINE 112 MCG TAB PO SCH (04:38)
[2020-02-10 06:40] LABS: Anisocytosis Slight; Basophils # (A) 0.1 k/uL (0-0.2); Basophils % (A) 0 %; Eosinophils # (A) 0.1 k/uL (0-0.7); Eosinophils % (A) 0 %; HCT 26.5 % (34.0-46.0); HGB 7.7 gm/dL (11.4-16.0); Hypochromasia Marked; Lymphocytes # (A) 1.2 k/uL (1.0-4.8); Lymphocytes % (A) 6 %; MCH 23.7 pg (25.0-35.0); MCV 81.8 fL (80.0-100.0); Mean Platelet Volume 8.4; Microcytosis Slight; Monocytes # (A) 1.2 k/uL (0-1.0); Monocytes % (A) 6 %; Neutrophils # (A) 16.5 k/uL (1.3-7.7); Neutrophils % (A) 86 %; Platelet Count 476 k/uL (150-450); Poikilocytosis Moderate; RBC 3.24 m/uL (3.80-5.40); RDW 19.9 % (11.5-15.5); WBC 19.3 k/uL (3.8-10.6)
[2020-02-10 06:48] LABS: African American GFR (CKD) >90 (>60 ml/min/1.73 sqM); Anion Gap 5 mmol/L; Blood Urea Nitrogen 13 mg/dL (7-17); Carbon Dioxide 23 mmol/L (22-30); Chloride 112 mmol/L (98-107); Glucose 97 mg/dL (74-99); Non-African American GFR(CKD) >90 (>60 ml/min/1.73 sqM); Potassium 3.9 mmol/L (3.5-5.1); Sodium 140 mmol/L (137-145)
[2020-02-10] MEDS: METOPROLOL TARTRATE 25 MG TAB PO SCH ×2 (08:19→20:08)
[2020-02-10] MEDS: ATORVASTATIN 40 MG TAB PO SCH (08:19)
[2020-02-10] MEDS: BUDESONIDE 0.5 MG/2 ML NEBU INHALATION SCH ×2 (08:19→20:55)
[2020-02-10] MEDS: PANTOPRAZOLE 40 MG/10 ML VIAL IVP SCH ×2 (08:19→20:09)
[2020-02-10] MEDS: ASPIRIN 81 MG PO SCH (08:19)
[2020-02-10] MEDS: SPIRONOLACTONE 25 MG TAB PO SCH (08:20)
--- NOTE | 2020-02-10 08:21 | P.PN ---
Progress Note - Text Progress Note Date: 02/10/20 Patient seen and examined again long discussion had with daughter over phone yesterday. Extended this time due to the patient's increased pain of her left lower extremity, she likely would best benefit from an amputation. She has multiphasic PT signal and the musculature of the fasciotomy site looked to be nonischemic, but given her altered mental status it is difficult to decipher if her pain is from ischemia versus postsurgical pain from the fasciotomy itself. There is coolness and some mottling to the distal foot and no evidence of dorsalis pedis flow. Given all these things, along with her altered mental status and lack of mobility I do believe the patient would best benefit from an above-knee amputation versus that of a below-knee. Discussion was had with the daughter regarding the increased risk for all reasons concerning the amputation as well as the patient's current comorbidities with acute coronary syndrome. We will plan in hopes to do the procedure under spinal with some sedation of the general anesthesia. We will transfuse blood to get her above 8 prior to the procedure and likely due to amputation she will need further transfusion. I'll also order nutritional labs this patient has been reluctant to eat. This is also discussed with the daughter about her failure to thrive. The daughter did see the patient was a DO NOT RESUSCITATE order and it was discussed with her that during the procedure this will be lifted at the time of the operation which we will reinstate following the procedure. She seemingly understood this and was willing to proceed as such
[2020-02-10 09:56] LABS: ALT 40 U/L (4-34); AST 63 U/L (14-36); Albumin 2.4 g/dL (3.5-5.0); Alkaline Phosphatase 76 U/L (38-126); Total Bilirubin 0.8 mg/dL (0.2-1.3); Total Protein 5.1 g/dL (6.3-8.2)
[2020-02-10] MEDS ORDERED: IV FLUID CONTINUATION 1,000 ML IV ONE (12:04)
[2020-02-10] MEDS ORDERED: ONDANSETRON 4 MG/2 ML VIAL ONE (12:56)
[2020-02-10] MEDS ORDERED: ONDANSETRON 4 MG/2 ML VIAL IVP ONE (13:00)
[2020-02-10] MEDS ORDERED: DEXAMETHASONE SOD PHOSPHATE 10 MG/ML 1 ML VIAL IV ONE (13:01)
--- NOTE | 2020-02-10 13:08 | P.PN ---
Subjective Progress Note Date: 02/10/20 CHIEF COMPLAINT: Acute coronary syndrome HISTORY OF PRESENT ILLNESS: Patient examined this morning at the bedside. Daughter present. She is s/p stent placement to her left iliac artery and left lower leg fasciotomy with Dr. Braun. Patient is scheduled for ampuation of left lower extremity today with vascular surgery. Patient denies chest pain or shortness of breath. PHYSICAL EXAM: VITAL SIGNS: Reviewed. GENERAL: Well-developed in no acute distress. NECK: Supple. No JVD or thyromegaly LUNGS: Respirations even and unlabored. Lungs essentially clear to auscultation bilaterally. HEART: Regular rate and rhythm. S1 and S2 heard. EXTREMITIES: Normal range of motion. Patient with immobilizer to left lower extremity. No lower extremity edema ASSESSMENT: #1 acute coronary syndrome #2 ischemic cardiomyopathy #3 congestive heart failure exacerbation secondary to systolic dysfunction #4 acute limb ischemia #5 multiple comorbid conditions PLAN: -Continue conservative management from a cardiac standpoint -Continue current medical regimen including aspirin, lipitor, lisinopril, lopressor, and aldactone -Continue anticoagulation per vascular surgery. Patient to undergo left lower extremity amputation per vascular surgery today. Nurse practitioner note has been reviewed by physician. Signing provider agrees with the documented findings, assessment, and plan of care. Objective - Vital Signs Vital signs: Vital Signs Temp 98.0 F 02/10/20 12:49 Pulse 78 02/10/20 12:49 Resp 16 02/10/20 12:49 BP 144/64 02/10/20 12:49 Pulse Ox 96 02/10/20 12:06 Intake & Output 02/09/20 02/10/20 02/10/20 18:59 06:59 18:59 Intake Total 965.148 254.148 0 Output Total 500 550 Balance 965.148 -245.852 -550 Weight 93.5 kg Intake: Intake, IV Titration 765.148 254.148 Amount Heparin Sod,Pork in 0.45% 165.148 254.148 NaCl 25,000 unit In 0.45 % NaCl 1 250ml.bag @ 23. 94 UNITS/KG/HR 22.623 mls /hr IV .Q11H4M [facility] Rx#: [id number] Sodium Chloride 0.9% 500 600 ml 500 ml @ 0 mls/hr IV . K-MED [facility] Rx#: [id number] Oral 200 0 Blood Product 0 Rc Pheresis 2 As3 Unit 0 [id number] Output: Urine 500 550 Other: Voiding Method Indwelling Catheter Indwelling Catheter Indwelling Catheter - Labs CBC & Chem 7: 02/10/20 06:25 02/10/20 06:25 Labs: Abnormal Lab Results - Last 24 Hours (Table) 02/10/20 02/10/20 02/10/20 Range/Units 06:25 06:25 06:25 WBC 19.3 H (3.8-10.6) k/uL RBC 3.24 L (3.80-5.40) m/uL Hgb 7.7 L (11.4-16.0) gm/dL Hct 26.5 L (34.0-46.0) % MCH 23.7 L (25.0-35.0) pg MCHC 29.0 L (31.0-37.0) g/dL RDW 19.9 H (11.5-15.5) % Plt Count 476 H (150-450) k/uL Neutrophils # 16.5 H (1.3-7.7) k/uL Monocytes # 1.2 H (0-1.0) k/uL Chloride 112 H (98-107) mmol/L Calcium 8.0 L (8.4-10.2) mg/dL AST 63 H (14-36) U/L ALT 40 H (4-34) U/L Total Protein 5.1 L (6.3-8.2) g/dL Albumin 2.4 L (3.5-5.0) g/dL Crossmatch See Detail
[2020-02-10] MEDS ORDERED: KETAMINE 10 MG/ML 20 ML VIAL ONE (13:11)
[2020-02-10] MEDS ORDERED: MIDAZOLAM 2 MG/2 ML VIAL ONE (13:11)
[2020-02-10] MEDS ORDERED: PROPOFOL 10 MG/ML 20 ML VIAL IV ONE (13:11)
[2020-02-10] MEDS ORDERED: fentaNYL (PF) 50 MCG/ML 2 ML AMP ONE (13:11)
--- NOTE | 2020-02-10 14:40 | P.PN ---
Subjective Progress Note Date: 02/10/20 Principal diagnosis: Patient is a 70-year-old female admitted for severe anemia. Patient up and she was confused at the time of admission although she is not confused at this time. Patient was evaluated by neurology patient doesn't appear to be encephalopathic at this time. Patient has elevated troponins which is believed secondary to anemia. Patient will undergo EGD on admission patient's hemoglobin was 6 patient doesn't have any evidence of or GI bleed at this time patient also has mildly elevated liver enzymes are do not have any repeat liver enzymes at this time these will be repeated for tomorrow. Patient is alert oriented 2-3. Patient had a recent stroke and patient is on Plavix at home. This is being held because of her severe anemia and possibility of GI bleed that cannot be ruled out. Patient was also evaluated for left iliac occlusion by vascular monsalve rgery in the recommending dual antiplatelet therapy once her anemia issues addressed. 02/03/2020 Patient continues to have a elevated troponin. Patient had an upper GI endoscopy did not show any acute GI bleed and patient is undergoing colonoscopy today. 02/04/2020 Patient underwent the angiogram of theof the extremities because of acute limb ischemia of the left lower extremity,underwent mechanical thrombectomy of left common iliac external iliac and the iliac Arteries where she had significant occlusions.probably will undergo cardiac catheterization tomorrow. Patient had a capsule endoscopy results of which are pending colonoscopy showed diverticulosis 02/05/2020 Vascular surgery is recommending fasciotomy. Cardiology is not planning on any cardiac catheterization at this time. 02/06/2020 Patient is status post fasciotomy. Patient whether cell continued to go up and no significant fevers this is probably because of the procedure this patient to me if it continues to go up tomorrow we'll workup for sepsis at the time 02/07/2020 Patient is is looking better today. She remains on IV heparin. Cardiology is recommending IV heparin anymore but will discuss with vascular surgery if it's okay to discontinue IV heparin. Chest x-ray showing small bilateral pleural effusions. Patient is on now Aldactone which will be continued. Patient clinically doesn't appear to be in heart failure exacerbation her white blood cell count is improving and are reactive Rx at this time Constitutional: Denied any fatigue denied any fever. Cardio vascular: denied any chest pain, palpitations Gastrointestinal denied any nausea vomiting Pulmonary: Denied any shortness of breath cough Neurologic denied any new focal deficits All inpatient medications were reviewed and appropriate changes in these medications as dictated in the interval history and assessment and plan. 02/08/2020 Patient is seen and evaluated in follow-up and continues to be on IV heparin with the possibility of vascular surgery performing a BKA. Patient continues to have poor oral intake and needs encouragement. No need for enteral nutrition at this time. Will continue to monitor closely. No reports of chest pain or palpitations. Patient is afebrile. No reports of shortness of breath. Hemoglobin today is 7.8. White blood count is trending down and 14.9. 02/09/2020 Patient is seen in follow-up today continues to be lethargic and moans when assessing the left lower extremity. Nursing staff patient managed to get the knee immobilizer off as she continues to be quite restless at times. Patient has been refusing to eat and per nursing staff has been coughing with small bites that are being fed to her. Patient will be nothing by mouth for now. Patient is scheduled to be nothing by mouth at midnight she will be undergoing left [id number] amputation with vascular surgery in the morning. Cardiology also following. Patient is maintained on IV heparin and will continue at this time. Hemoglobin is 7.7 today. White blood count slightly elevated at 17.5. Patient is afebrile. 02/10/2020 Patient is seen and evaluated in follow-up with no acute overnight issues. Patient continues to have discomfort in the left lower extremity and scheduled to undergo [id number] amputation with Dr. Braun today. Heparin drip has been discontinued. Family feels that her lack of eating is due to the patient not liking the food here. Patient is currently nothing by mouth for the procedure although family instructed to bring food in that they feel patient may eat. Cardiology also following recommending medical management with no further suggestions of interventions at this time. We'll continue to hold anticoagulation and discussed with vascular surgery after the procedure about appropriate timing of resuming anticoagulants. Patient and family wishes are to become a no code once again after the procedure. Hemoglobin continue to be 7.7 today and will be given a unit of PRBCs prior to surgery and will repeat labs in a.m. Patient remains afebrile. Patient denies any chest pain, shortness of breath, or palpitations. Objective - Vital Signs Vital signs: Vital Signs Temp 98.0 F 02/10/20 12:49 Pulse 78 02/10/20 12:49 Resp 16 02/10/20 12:49 BP 144/64 02/10/20 12:49 Pulse Ox 96 02/10/20 12:06 Intake & Output 02/09/20 02/10/20 02/10/20 18:59 06:59 18:59 Intake Total 965.148 871.660 9035 Output Total 500 550 Balance 965.148 -245.852 810 Weight 93.5 kg Intake: IV 1050 Intake, IV Titration 765.148 254.148 Amount Heparin Sod,Pork in 0.45% 165.148 254.148 NaCl 25,000 unit In 0.45 % NaCl 1 250ml.bag @ 23. 94 UNITS/KG/HR 22.623 mls /hr IV .Q11H4M [facility] Rx#: [id number] Sodium Chloride 0.9% 500 600 ml 500 ml @ 0 mls/hr IV . [facility] Rx#: [id number] Oral 200 0 Blood Product 310 Rc Pheresis 2 As3 Unit 310 [id number] Output: Urine 500 550 Other: Voiding Method Indwelling Catheter Indwelling Catheter Indwelling Catheter - Exam GENERAL: The patient is alert and oriented x2, not in any acute distress. Well developed, well nourished. HEENT: Pupils are round and equally reacting to light. EOMI. No scleral icterus. Does have conjunctival pallor. Normocephalic, atraumatic. No pharyngeal erythema. No thyromegaly. CARDIOVASCULAR: S1 and S2 present. No murmurs, rubs, or gallops. PULMONARY: Diminished breath sounds bilaterally, no wheezing or rhonchi noted. ABDOMEN: Soft, nontender, nondistended, normoactive bowel sounds. No palpable organomegaly. MUSCULOSKELETAL: No joint swelling or deformity. left lower extremity is cold to the touch and mottled EXTREMITIES: No cyanosis, clubbing, NEUROLOGICAL: Gross neurological examination did not reveal any focal deficits. SKIN: No rashes. - Labs CBC & Chem 7: 02/10/20 06:25 02/10/20 06:25 Labs: Abnormal Lab Results - Last 24 Hours (Table) 08/12/20 08/12/20 08/12/20 Range/Units 06:25 06:25 06:25 WBC 19.3 H (3.8-10.6) k/uL RBC 3.24 L (3.80-5.40) m/uL Hgb 7.7 L (11.4-16.0) gm/dL Hct 26.5 L (34.0-46.0) % MCH 23.7 L (25.0-35.0) pg MCHC 29.0 L (31.0-37.0) g/dL RDW 19.9 H (11.5-15.5) % Plt Count 476 H (150-450) k/uL Neutrophils # 16.5 H (1.3-7.7) k/uL Monocytes # 1.2 H (0-1.0) k/uL Chloride 112 H (98-107) mmol/L Calcium 8.0 L (8.4-10.2) mg/dL AST 63 H (14-36) U/L ALT 40 H (4-34) U/L Total Protein 5.1 L (6.3-8.2) g/dL Albumin 2.4 L (3.5-5.0) g/dL Crossmatch See Detail Assessment and Plan Assessment: -non-ST elevation myocardial infarction: Because of comorbidities cardiology is recommending medical management. Cardiology is not planning any acute interventions or cardiac catheterization at this time. -Severe anemia without any overt evidence of acute GI bleed patient, hemoglobin today is 7.7. Patient to receive a unit of PRBCs today prior to procedure -Peripheral vascular disease with a severe left iliac occlusion patient is status post thrombectomy and fasciotomy. undergoing AKA with vascular surgery -Recent cerebral vascular accident with mild residual weakness on the right side -Mildly elevated liver enzymes, improved -Leukocytosis most likely reactive, without any evidence of infection Plan: Continue current medications, management, and symptomatic treatment. Patient is nothing by mouth at this time for the procedure. Family believes this is patient preference and not liking the food as to why she is not eating and family was encouraged to bring in food that she may eat once stabilized from the procedure today. Appreciate recommendations from vascular surgery and when to resume anticoagulants status post [id number] amputation today. Will repeat a.m. labs. Further recommendations to follow. Case management and social work also following as patient will be going to ECF once stabilized and discharged. Cardiology also following recommending to continue with medical management and no surgical intervention of cardiac catheterization is planned at this time. Prognosis is guarded.
--- NOTE | 2020-02-10 15:54 | P.OP ---
Date of Procedure: 02/10/20 Description of Procedure: Preoperative diagnosis: Left lower extremity ischemia acute coronary syndrome, altered mental status, NSTEMI, anemia Postoperative diagnosis: Same Procedure: Left Above-knee amputation Surgeon: Dali Braun D.O. Anesthesia: Spinal with MAC EBL: 50 mL IV fluids: See anesthesia records Urine output: See operative records Drains: None Complications: None immediately apparent Condition: Stable to recovery Operative indication and findings: The patient is a 70-year-old female who was initially admitted to the hospital with altered mental status, findings of an NSTEMI, anemia and evidence of ischemia to her left lower extremity. She initially underwent interventions to evaluate her anemia and was found to be too high risk for any cardiac catheterization versus solely performing medical management. She then underwent angiogram with stenting of her left iliac artery and suction thrombectomy of her femoral and popliteal thrombus. After the procedure she continued to have pain in the extremity and was taken to the operating room for a fasciotomy. At that time the muscles appeared healthy and reactive. In the postprocedural period she did regain a posterior tibial signal that was multiphasic. In the following days she had continued pain in her leg as well as some mottling of the foot. Due to her inability to adequately communicate, it was uncertain whether her pain was postprocedural versus continuing to be ischemic. Given her significant amount of pain it was discussed with family and decided that she would undergo an above-knee amputation. The significant risk and benefits were discussed which they seemingly understood and were willing to proceed as such. Procedure in detail: The patient was taken to the operative suite and placed in supine position. After adequate anesthesia, the left lower extremity was prepped and draped in usual sterile fashion. A preprocedure timeout was performed, all parties were in agreement. Skin marker was utilized and the incision was marked approximately 5 cm proximal to the knee joint. Skin incision was performed and deepened through the subcutaneous tissues to the muscular fascia. The muscle groups of the anterior and medial thigh were divided with electrocautery at the same level of the skin incision. The neurovascular bundle was identified on the medial aspect of the thigh. The artery and veins were isolated and suture ligated using 2-0 silk ligature. The sciatic nerve was pulled on stretch and ligated with 2-0 silk tie and divided. The femur was then cleared of its periosteal tissue is elevated roughly 5 cm proximally and was divided with the oscillating saw. The posterior thigh muscles were then divided with electrocautery. The proximal end of the transected femur was smoothed with a rasp. The amputation site was then copiously irrigated. Hemostasis was controlled with electrocautery. The periosteum was reapproximated using interrupted sutures of 2-0 Vicryl. The fascia was reapproximated with interrupted yebkjg-jg-[id number] sutures of 2-0 Vicryl. The skin was reapproximated with wilda. A dressing with gauze, Kerlix and a bandage were placed. The patient tolerated the procedure well and was transported to PACU in stable condition
[2020-02-10 16:51] LABS: Folate, Serum 7.7 ng/mL
[2020-02-10 17:00] LABS: % Iron Saturation 2.58 (12.00-45.00)
[2020-02-10] MEDS: MORPHINE SULFATE 2 MG/ML SYRINGE IVP PRN (17:57)
[2020-02-11] MEDS: MORPHINE SULFATE 2 MG/ML SYRINGE IVP PRN ×3 (01:46→23:54)
[2020-02-11 06:17] LABS: African American GFR (CKD) >90 (>60 ml/min/1.73 sqM); Anion Gap 5 mmol/L; Blood Urea Nitrogen 16 mg/dL (7-17); Calcium 8.4 mg/dL (8.4-10.2); Carbon Dioxide 23 mmol/L (22-30); Chloride 112 mmol/L (98-107); Glucose 118 mg/dL (74-99); Non-African American GFR(CKD) >90 (>60 ml/min/1.73 sqM); Potassium 4.3 mmol/L (3.5-5.1); Sodium 140 mmol/L (137-145)
[2020-02-11 06:18] LABS: Anisocytosis Slight; Basophils % (A) 0 %; Eosinophils % (A) 0 %; Hypochromasia Marked; Lymphocytes # (A) 0.8 k/uL (1.0-4.8); Lymphocytes % (A) 4 %; MCH 24.8 pg (25.0-35.0); MCHC 29.9 g/dL (31.0-37.0); Mean Platelet Volume 8.4; Microcytosis Slight; Monocytes # (A) 0.9 k/uL (0-1.0); Monocytes % (A) 5 %; Neutrophils # (A) 15.4 k/uL (1.3-7.7); Neutrophils % (A) 89 %; Platelet Count 479 k/uL (150-450); Poikilocytosis Moderate; RBC 3.73 m/uL (3.80-5.40); RDW 19.7 % (11.5-15.5); WBC 17.3 k/uL (3.8-10.6)
[2020-02-11 06:23] LABS: HGB 9.3 gm/dL (11.4-16.0)
[2020-02-11] MEDS: LEVOTHYROXINE 112 MCG TAB PO SCH (07:38)
[2020-02-11] MEDS: FERROUS SULFATE 325 MG TAB PO SCH ×2 (07:39→17:03)
[2020-02-11] MEDS: HEPARIN SOD,PORK IN 0.45% NACL 25,000 UNIT in 0.45% NACL 1 250ML.BAG IV SCH (07:39)
[2020-02-11] MEDS: PANTOPRAZOLE 40 MG/10 ML VIAL IVP SCH ×2 (09:34→21:24)
[2020-02-11] MEDS: BUDESONIDE 0.5 MG/2 ML NEBU INHALATION SCH ×2 (09:40→20:06)
--- NOTE | 2020-02-11 11:29 | P.PN ---
Subjective Progress Note Date: 02/11/20 CHIEF COMPLAINT: Acute coronary syndrome HISTORY OF PRESENT ILLNESS: Patient examined this morning at the bedside. She is s/p stent placement to her left iliac artery and left lower leg fasciotomy with Dr. Braun. She is also status post left below the amputation. POD #1. Patient denies chest pain or shortness of breath. PHYSICAL EXAM: VITAL SIGNS: Reviewed. GENERAL: Well-developed in no acute distress. NECK: Supple. No JVD or thyromegaly LUNGS: Respirations even and unlabored. Lungs essentially clear to auscultation bilaterally. HEART: Regular rate and rhythm. S1 and S2 heard. EXTREMITIES: Normal range of motion. Left AKA. Dressing clean dry intact. ASSESSMENT: #1 acute coronary syndrome #2 ischemic cardiomyopathy #3 congestive heart failure exacerbation secondary to systolic dysfunction #4 acute limb ischemia #5 multiple comorbid conditions PLAN: -Continue conservative management from a cardiac standpoint -Continue current medical regimen including aspirin, lipitor, lisinopril, lopressor, and aldactone -Patient is stable from a cardiac perspective. We will sign off. Please re- consult if needed Nurse practitioner note has been reviewed by physician. Signing provider agrees with the documented findings, assessment, and plan of care. Objective - Vital Signs Vital signs: Vital Signs Temp 98.2 F 02/11/20 08:00 Pulse 81 02/11/20 08:00 Resp 18 02/11/20 08:00 BP 96/65 02/11/20 08:00 Pulse Ox 92 L 02/11/20 08:00 Intake & Output 02/10/20 02/11/20 02/11/20 18:59 06:59 18:59 Intake Total 1210 50 Output Total 1100 300 450 Balance 110 -300 -400 Weight 63 kg Intake: IV 900 Intake, IV Titration 50 Amount ceFAZolin 2 gm In Sodium 50 Chloride 0.9% 50 ml @ 100 mls/hr IVPB ONCE ONE Rx# :[id number] Blood Product 310 Rc Pheresis 2 As3 Unit 310 [id number] Output: Urine 1050 300 450 Estimated Blood Loss 50 Other: Voiding Method Indwelling Catheter Indwelling Catheter Indwelling Catheter # Bowel Movements 1 - Labs CBC & Chem 7: 02/11/20 05:47 02/11/20 05:47 Labs: Abnormal Lab Results - Last 24 Hours (Table) 02/10/20 02/10/20 02/11/20 Range/Units 06:25 06:25 05:47 WBC 17.3 H (3.8-10.6) k/uL RBC 3.73 L (3.80-5.40) m/uL Hgb 9.3 L D (11.4-16.0) gm/dL Hct 31.0 L (34.0-46.0) % MCH 24.8 L (25.0-35.0) pg MCHC 29.9 L (31.0-37.0) g/dL RDW 19.7 H (11.5-15.5) % Plt Count 479 H (150-450) k/uL Neutrophils # 15.4 H (1.3-7.7) k/uL Lymphocytes # 0.8 L (1.0-4.8) k/uL Chloride (98-107) mmol/L Glucose (74-99) mg/dL Iron 6 L (50-170) ug/dL % Saturation 2.58 L (12.00-45.00) Crossmatch See Detail 02/11/20 Range/Units 05:47 WBC (3.8-10.6) k/uL RBC (3.80-5.40) m/uL Hgb (11.4-16.0) gm/dL Hct (34.0-46.0) % MCH (25.0-35.0) pg MCHC (31.0-37.0) g/dL RDW (11.5-15.5) % Plt Count (150-450) k/uL Neutrophils # (1.3-7.7) k/uL Lymphocytes # (1.0-4.8) k/uL Chloride 112 H (98-107) mmol/L Glucose 118 H (74-99) mg/dL Iron (50-170) ug/dL % Saturation (12.00-45.00) Crossmatch
[2020-02-11] MEDS: SPIRONOLACTONE 25 MG TAB PO SCH (12:41)
[2020-02-11] MEDS: ATORVASTATIN 40 MG TAB PO SCH (12:41)
[2020-02-11] MEDS: ASPIRIN 81 MG PO SCH (12:41)
[2020-02-11] MEDS: HYDROcodone/APAP 5-325MG 1 EACH TAB PO PRN (12:41)
[2020-02-11] MEDS: METOPROLOL TARTRATE 25 MG TAB PO SCH ×2 (12:41→21:06)
--- NOTE | 2020-02-11 13:57 | P.PN ---
Subjective Progress Note Date: 02/11/20 Patient was seen and examined at the bedside. Patient was resting comfortably. Patient states that her pain is improved. She denies any current pain at this time. Patient is status postop day 1 for left lower extremity hkyhc-czz-euhi amputation. Dressing is clean dry and intact. Denies any shortness of breath or chest pains. Objective - Vital Signs Vital signs: Vital Signs Temp 98.2 F 02/11/20 08:00 Pulse 81 02/11/20 08:00 Resp 18 02/11/20 08:00 BP 96/65 02/11/20 08:00 Pulse Ox 92 L 02/11/20 08:00 Intake & Output 02/10/20 02/11/20 02/11/20 18:59 06:59 18:59 Intake Total 1210 50 Output Total 1100 300 450 Balance 110 -300 -400 Weight 63 kg Intake: IV 900 Intake, IV Titration 50 Amount ceFAZolin 2 gm In Sodium 50 Chloride 0.9% 50 ml @ 100 mls/hr IVPB ONCE ONE Rx# :[id number] Blood Product 310 Rc Pheresis 2 As3 Unit 310 [id number] Output: Urine 1050 300 450 Estimated Blood Loss 50 Other: Voiding Method Indwelling Catheter Indwelling Catheter Indwelling Catheter # Bowel Movements 1 - Exam Patient alert but still somewhat confused. Heart regular rate and rhythm, lungs clear to auscultation bilaterally. Left lower extremity [id number] amputation with dressing that is clean dry and intact. - Labs CBC & Chem 7: 02/11/20 05:47 02/11/20 05:47 Labs: Abnormal Lab Results - Last 24 Hours (Table) 02/10/20 02/10/20 02/11/20 Range/Units 06:25 06:25 05:47 WBC 17.3 H (3.8-10.6) k/uL RBC 3.73 L (3.80-5.40) m/uL Hgb 9.3 L D (11.4-16.0) gm/dL Hct 31.0 L (34.0-46.0) % MCH 24.8 L (25.0-35.0) pg MCHC 29.9 L (31.0-37.0) g/dL RDW 19.7 H (11.5-15.5) % Plt Count 479 H (150-450) k/uL Neutrophils # 15.4 H (1.3-7.7) k/uL Lymphocytes # 0.8 L (1.0-4.8) k/uL Chloride (98-107) mmol/L Glucose (74-99) mg/dL Iron 6 L (50-170) ug/dL % Saturation 2.58 L (12.00-45.00) Crossmatch See Detail 02/11/20 Range/Units 05:47 WBC (3.8-10.6) k/uL RBC (3.80-5.40) m/uL Hgb (11.4-16.0) gm/dL Hct (34.0-46.0) % MCH (25.0-35.0) pg MCHC (31.0-37.0) g/dL RDW (11.5-15.5) % Plt Count (150-450) k/uL Neutrophils # (1.3-7.7) k/uL Lymphocytes # (1.0-4.8) k/uL Chloride 112 H (98-107) mmol/L Glucose 118 H (74-99) mg/dL Iron (50-170) ug/dL % Saturation (12.00-45.00) Crossmatch Assessment and Plan Assessment: 1. Stop day 1 for left ltgyg-cdl-uzjr amputation 2. Acute limb ischemia, left lower extremity 3. Status post left lower extremity fasciotomy 4. Status post right iliofemoral angiogram,, selective left lower extremity angiogram left common iliac artery stent, and mechanical thrombectomy of the left common iliac, external iliac, and internal iliac arteries 5. Left iliac artery occlusion approximately 95% 6. Pain in left lower extremity 7. Altered mental status changes 8. Acute coronary syndrome 9. NSTEMI 10. Severe iron deficiency Anemia 11. History of CVA Plan: Mat start with daily dressing changes. Physical therapy to work with patient for left AKA. Discontinue heparin drip, continue with daily low-dose aspirin. Awaiting swallow evaluation from speech therapy. Further recommendations to follow. The above dictated assessment and findings were discussed with Dr. Hoyos. The impression and plan of care have been directed as dictated.
--- NOTE | 2020-02-11 15:04 | P.PN ---
Subjective Progress Note Date: 02/11/20 Principal diagnosis: Patient is a 70-year-old female admitted for severe anemia. Patient up and she was confused at the time of admission although she is not confused at this time. Patient was evaluated by neurology patient doesn't appear to be encephalopathic at this time. Patient has elevated troponins which is believed secondary to anemia. Patient will undergo EGD on admission patient's hemoglobin was 6 patient doesn't have any evidence of or GI bleed at this time patient also has mildly elevated liver enzymes are do not have any repeat liver enzymes at this time these will be repeated for tomorrow. Patient is alert oriented 2-3. Patient had a recent stroke and patient is on Plavix at home. This is being held because of her severe anemia and possibility of GI bleed that cannot be ruled out. Patient was also evaluated for left iliac occlusion by vascular monsalve rgery in the recommending dual antiplatelet therapy once her anemia issues addressed. 02/03/2020 Patient continues to have a elevated troponin. Patient had an upper GI endoscopy did not show any acute GI bleed and patient is undergoing colonoscopy today. 02/04/2020 Patient underwent the angiogram of theof the extremities because of acute limb ischemia of the left lower extremity,underwent mechanical thrombectomy of left common iliac external iliac and the iliac Arteries where she had significant occlusions.probably will undergo cardiac catheterization tomorrow. Patient had a capsule endoscopy results of which are pending colonoscopy showed diverticulosis 02/05/2020 Vascular surgery is recommending fasciotomy. Cardiology is not planning on any cardiac catheterization at this time. 02/06/2020 Patient is status post fasciotomy. Patient whether cell continued to go up and no significant fevers this is probably because of the procedure this patient to me if it continues to go up tomorrow we'll workup for sepsis at the time 02/07/2020 Patient is is looking better today. She remains on IV heparin. Cardiology is recommending IV heparin anymore but will discuss with vascular surgery if it's okay to discontinue IV heparin. Chest x-ray showing small bilateral pleural effusions. Patient is on now Aldactone which will be continued. Patient clinically doesn't appear to be in heart failure exacerbation her white blood cell count is improving and are reactive Rx at this time Constitutional: Denied any fatigue denied any fever. Cardio vascular: denied any chest pain, palpitations Gastrointestinal denied any nausea vomiting Pulmonary: Denied any shortness of breath cough Neurologic denied any new focal deficits All inpatient medications were reviewed and appropriate changes in these medications as dictated in the interval history and assessment and plan. 02/08/2020 Patient is seen and evaluated in follow-up and continues to be on IV heparin with the possibility of vascular surgery performing a BKA. Patient continues to have poor oral intake and needs encouragement. No need for enteral nutrition at this time. Will continue to monitor closely. No reports of chest pain or palpitations. Patient is afebrile. No reports of shortness of breath. Hemoglobin today is 7.8. White blood count is trending down and 14.9. 02/09/2020 Patient is seen in follow-up today continues to be lethargic and moans when assessing the left lower extremity. Nursing staff patient managed to get the knee immobilizer off as she continues to be quite restless at times. Patient has been refusing to eat and per nursing staff has been coughing with small bites that are being fed to her. Patient will be nothing by mouth for now. Patient is scheduled to be nothing by mouth at midnight she will be undergoing left pciyc-qhl-pkgj amputation with vascular surgery in the morning. Cardiology also following. Patient is maintained on IV heparin and will continue at this time. Hemoglobin is 7.7 today. White blood count slightly elevated at 17.5. Patient is afebrile. 02/10/2020 Patient is seen and evaluated in follow-up with no acute overnight issues. Patient continues to have discomfort in the left lower extremity and scheduled to undergo jnxzt-lqf-pphn amputation with Dr. Braun today. Heparin drip has been discontinued. Family feels that her lack of eating is due to the patient not liking the food here. Patient is currently nothing by mouth for the procedure although family instructed to bring food in that they feel patient may eat. Cardiology also following recommending medical management with no further suggestions of interventions at this time. We'll continue to hold anticoagulation and discussed with vascular surgery after the procedure about appropriate timing of resuming anticoagulants. Patient and family wishes are to become a no code once again after the procedure. Hemoglobin continue to be 7.7 today and will be given a unit of PRBCs prior to surgery and will repeat labs in a.m. Patient remains afebrile. Patient denies any chest pain, shortness of breath, or palpitations. 02/11/2020 Patient is seen in follow-up status post left zwedb-mpr-iqwf amputation postop day #1. Dressing is currently dry and intact. Aspirin has been resumed. Patient continues to have generalized discomfort of her back. Patient currently awaiting reevaluation from speech pathology for swallow eval. She states she is hungry and would like to eat. Patient currently denies any chest pain, shortness of breath, or palpitations. Patient is afebrile. No reports of nausea or vomiting. Hemoglobin today is 9.3. BMP within normal limits. Objective - Vital Signs Vital signs: Vital Signs Temp 98.6 F 02/11/20 12:00 Pulse 88 02/11/20 12:00 Resp 18 02/11/20 12:00 BP 132/75 02/11/20 12:00 Pulse Ox 93 L 02/11/20 12:00 Intake & Output 02/10/20 02/11/20 02/11/20 18:59 06:59 18:59 Intake Total 1210 450 Output Total 1100 300 450 Balance 110 -300 0 Weight 63 kg 63 kg Intake: IV 900 Intake, IV Titration 50 Amount ceFAZolin 2 gm In Sodium 50 Chloride 0.9% 50 ml @ 100 mls/hr IVPB ONCE ONE Rx# :[id number] Oral 400 Blood Product 310 Rc Pheresis 2 As3 Unit 310 [id number] Output: Urine 1050 300 450 Estimated Blood Loss 50 Other: Voiding Method Indwelling Catheter Indwelling Catheter Indwelling Catheter # Bowel Movements 1 - Exam GENERAL: The patient is alert and oriented x2, not in any acute distress. Well developed, well nourished. HEENT: Pupils are round and equally reacting to light. EOMI. No scleral icterus. Does have conjunctival pallor. Normocephalic, atraumatic. No pharyngeal erythema. No thyromegaly. CARDIOVASCULAR: S1 and S2 present. No murmurs, rubs, or gallops. PULMONARY: Diminished breath sounds bilaterally, no wheezing or rhonchi noted. ABDOMEN: Soft, nontender, nondistended, normoactive bowel sounds. No palpable organomegaly. MUSCULOSKELETAL: No joint swelling or deformity. EXTREMITIES: No cyanosis, clubbing, left lower extremity dressing is dry and intact status post AKA postop day #1 NEUROLOGICAL: Gross neurological examination did not reveal any focal deficits. SKIN: No rashes. - Labs CBC & Chem 7: 02/11/20 05:47 02/11/20 05:47 Labs: Abnormal Lab Results - Last 24 Hours (Table) 02/10/20 02/11/20 02/11/20 Range/Units 06:25 05:47 05:47 WBC 17.3 H (3.8-10.6) k/uL RBC 3.73 L (3.80-5.40) m/uL Hgb 9.3 L D (11.4-16.0) gm/dL Hct 31.0 L (34.0-46.0) % MCH 24.8 L (25.0-35.0) pg MCHC 29.9 L (31.0-37.0) g/dL RDW 19.7 H (11.5-15.5) % Plt Count 479 H (150-450) k/uL Neutrophils # 15.4 H (1.3-7.7) k/uL Lymphocytes # 0.8 L (1.0-4.8) k/uL Chloride 112 H (98-107) mmol/L Glucose 118 H (74-99) mg/dL Iron 6 L (50-170) ug/dL % Saturation 2.58 L (12.00-45.00) Assessment and Plan Assessment: -non-ST elevation myocardial infarction: Because of comorbidities cardiology is recommending medical management. Cardiology is not planning any acute int erventions or cardiac catheterization at this time. -Status post left rckqm-juu-insb amputation, postop day #1, vascular surgery following -Severe anemia without any overt evidence of acute GI bleed patient, hemoglobin today is 9.3. Will monitor closely -Peripheral vascular disease with a severe left iliac occlusion patient is status post thrombectomy and fasciotomy. Underwent AKA of the left lower extremity with vascular surgery postop day #1 -Recent cerebral vascular accident with mild residual weakness on the right side -Mildly elevated liver enzymes, improved -Leukocytosis most likely reactive, without any evidence of infection Plan: Continue current medications, management, and symptomatic treatment. Patient underwent AKA of the left lower extremity yesterday postop day #1. Patient was reevaluated by speech therapy recommending dysphagia 3 chopped diet with one-to-one supervision and head of the bed elevated 30-45 for strict aspiration precautions. Patient is stating she is hungry and would like to eat. Appreciate recommendations from vascular surgery and when to resume anticoagulants status post yyywe-zlu-nuci amputation. Aspirin has been resumed. Will repeat a.m. labs. Further recommendations to follow. Case management and social work also following as patient will be going to [facility]CF once stabilized and discharged. Cardiology also following recommending to continue with medical management and no surgical intervention of cardiac catheterization is planned at this time. Prognosis is guarded.
[2020-02-11] MEDS ORDERED: SODIUM CHLORIDE 0.9% 500 ML 500 ML IV ONE (21:19)
[2020-02-11] MEDS: ACETAMINOPHEN TAB 325 MG TAB PO PRN (21:24)
[2020-02-12] MEDS: FERROUS SULFATE 325 MG TAB PO SCH ×2 (06:05→17:24)
[2020-02-12] MEDS: LEVOTHYROXINE 112 MCG TAB PO SCH (06:05)
[2020-02-12 07:09] LABS: INR 1.1 (<1.2); Prothrombin Time 11.2 sec (9.0-12.0)
[2020-02-12 07:15] LABS: African American GFR (CKD) >90 (>60 ml/min/1.73 sqM); Anion Gap 1 mmol/L; Blood Urea Nitrogen 20 mg/dL (7-17); Calcium 7.9 mg/dL (8.4-10.2); Carbon Dioxide 25 mmol/L (22-30); Chloride 115 mmol/L (98-107); Glucose 111 mg/dL (74-99); Non-African American GFR(CKD) >90 (>60 ml/min/1.73 sqM); Potassium 3.9 mmol/L (3.5-5.1); Sodium 141 mmol/L (137-145)
[2020-02-12 07:18] LABS: Anisocytosis Slight; Basophils % (A) 0 %; Eosinophils # (A) 0.1 k/uL (0-0.7); Eosinophils % (A) 0 %; HCT 29.9 % (34.0-46.0); HGB 8.8 gm/dL (11.4-16.0); Hypochromasia Marked; Lymphocytes # (A) 1.4 k/uL (1.0-4.8); Lymphocytes % (A) 8 %; MCH 24.7 pg (25.0-35.0); MCHC 29.3 g/dL (31.0-37.0); MCV 84.1 fL (80.0-100.0); Mean Platelet Volume 8.9; Microcytosis Slight; Monocytes # (A) 1.2 k/uL (0-1.0); Monocytes % (A) 7 %; Neutrophils # (A) 13.9 k/uL (1.3-7.7); Neutrophils % (A) 83 %; Platelet Count 506 k/uL (150-450); Poikilocytosis Marked; RBC 3.56 m/uL (3.80-5.40); RDW 19.4 % (11.5-15.5); WBC 16.7 k/uL (3.8-10.6)
[2020-02-12 07:53] LABS: Mixed Population RBC Present
[2020-02-12] MEDS: BUDESONIDE 0.5 MG/2 ML NEBU INHALATION SCH ×2 (08:39→20:40)
[2020-02-12] MEDS: HYDROcodone/APAP 5-325MG 1 EACH TAB PO PRN (09:42)
[2020-02-12] MEDS: ATORVASTATIN 40 MG TAB PO SCH (09:42)
[2020-02-12] MEDS: ASPIRIN 81 MG PO SCH (09:42)
[2020-02-12] MEDS: PANTOPRAZOLE 40 MG/10 ML VIAL IVP SCH ×2 (09:42→21:01)
[2020-02-12] MEDS: METOPROLOL TARTRATE 25 MG TAB PO SCH ×2 (13:02→20:59)
[2020-02-12] MEDS: SPIRONOLACTONE 25 MG TAB PO SCH (13:02)
--- NOTE | 2020-02-12 13:45 | P.DS ---
Providers Date of admission: 02/01/20 04:50 Expected date of discharge: 02/12/20 Attending physician: Silvana Vasquez Consults: 02/01/20 10:53 Consult Physician Urgent Consulting Provider: Dali Braun Consult Reason/Comments: 95% occlusion of the left common iliac artery Do you want consulting provider notified?: Yes 02/01/20 10:59 Consult Physician Routine Consulting Provider: Leslie Driscoll Consult Reason/Comments: previous stroke Do you want consulting provider notified?: Yes Primary care physician: Carrie Thomas Hospital Course: final diagnosis -non-ST elevation myocardial infarction: Because of comorbidities cardiology is recommending medical management. -Covid 19 ruled out, testing was negative -Status post left kjzcx-asj-[id number] amputation -Severe anemia without any overt evidence of acute GI bleed patient -Peripheral vascular disease with a severe left iliac occlusion patient is status post thrombectomy and fasciotomy. 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 Patient will follow-up with Dr. Thomas upon discharge. Ludwig nt will continue with aspirin and Plavix per vascular surgery recommendations. patient instructed to follow-up with cardiology along with vascular surgery in the outpatient setting. Total time taken is 35 minutes. History of present illness This is a 70-year-old female who was recently admitted with severe anemia, confusion, and elevated troponins and was being closely monitored. patient underwent EGD with GI. Patient was also evaluated by vascular surgery during hospitalization for left iliac occlusion and ultimately underwent angiogram and then left lower extremity fasciotomy showing significant occlusions. Patient also was evaluated by cardiology and not planning any cardiac interventions at this time due to multiple complex medical issues. Patient also underwent colonoscopy showing diverticulosis. GI bleeding had resolved. Patient's left lower extremity status continued to deteriorate and was cold and mottled and patient ultimately underwent left AKA with vascular surgery yesterday. Hemoglobin has been stable and is currently 8.8. Patient will continue with aspirin and Plavix in the outpatient setting. Patient will need to follow-up with vascular surgery as well. Patient to follow-up with cardiology in the outpatient setting once more stabilized and will continue with medical management at this time. patient was provided a prescription for repeat CBC to monitor hemoglobin. Patient will returning to ECF today. Currently no reports of chest pain, shortness of breath, or palpitations. Patient is afebrile. No reports of nausea or vomiting and patient is tolerating diet. patient to continue with PT/OT therapy in the outpatient setting. Guarded prognosis. On exam vital signs are stable. Temp is 97.4F, pulse is 90, respirations are 16, blood pressure is 107/68, oxygen saturation is 94% on room air. Cardio S1, S2 are muffled. Respiratory shows diminished breath sounds at the bases with no wheezing or rhonchi noted. Abdomen is soft and nontender. Nervous system shows mild diffuse weakness. Please refer to medication reconciliation sheet for a list of medications. Patient Condition at Discharge: Stable Plan - Discharge Summary Discharge Rx Participant: Yes New Discharge Prescriptions: New Spironolactone [Aldactone] 25 mg PO DAILY tab Aspirin 81 mg PO DAILY chew Ferrous Sulfate [Iron (65 MG Elemental)] 325 mg PO BID-W/MEALS tab Metoprolol Tartrate [Lopressor] 25 mg PO BID tab HYDROcodone/APAP 5-325MG [[place] 5-325] 1 each PO Q4HR PRN #10 tab PRN Reason: Pain Acetaminophen Tab [Tylenol] 650 mg PO Q4HR PRN tab PRN Reason: Fever And/ Or Pain Clopidogrel Bisulfate [Plavix] 75 mg PO DAILY 30 Days #30 tab Continue Lisinopril [Zestril] 10 mg PO DAILY Levothyroxine Sodium [Synthroid] 112 mcg PO DAILY Atorvastatin Calcium [Lipitor] 40 mg PO DAILY Omeprazole 20 mg PO DAILY Discontinued Clopidogrel [Plavix] 75 mg PO DAILY Discharge Medication List Atorvastatin Calcium [Lipitor] 40 mg PO DAILY 02/01/20 [History] Levothyroxine Sodium [Synthroid] 112 mcg PO DAILY 02/01/20 [History] Lisinopril [Zestril] 10 mg PO DAILY 02/01/20 [History] Omeprazole 20 mg PO DAILY 02/01/20 [History] Acetaminophen Tab [Tylenol] 650 mg PO Q4HR PRN tab 02/12/20 [Rx] Aspirin 81 mg PO DAILY chew 02/12/20 [Rx] Clopidogrel Bisulfate [Plavix] 75 mg PO DAILY 30 Days #30 tab 08/14/20 [Rx] Ferrous Sulfate [Iron (65 MG Elemental)] 325 mg PO BID-W/MEALS tab 02/12/20 [Rx] HYDROcodone/APAP 5-325MG [[place] 5-325] 1 each PO Q4HR PRN #10 tab 02/12/20 [Rx] Metoprolol Tartrate [Lopressor] 25 mg PO BID tab 02/12/20 [Rx] Spironolactone [Aldactone] 25 mg PO DAILY tab 02/12/20 [Rx] Follow up Appointment(s)/Referral(s): [facility] [Provider Group] - 1 Week Dali Braun DO [STAFF PHYSICIAN] - 2 Weeks Carrie Thomas MD [Primary Care Provider] - 1-2 days Ambulatory/Diagnostic Orders: Complete Blood Count w/diff [LAB.AMB] Time Frame: 2 Days, Location: None Selected Activity/Diet/Wound Care/Special Instructions: [facility]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
--- NOTE | 2020-02-12 14:04 | P.PN ---
Subjective Progress Note Date: 02/12/20 Patient was seen and examined lying in bed. There are no acute changes through the night. Patient denies any shortness breath or chest pain. Patient is still confused. Patient denies any pain to the left lower extremity. Physical therapy is working with patient. The plan is for the patient to be discharged to subacute rehab. Hemoglobin stable at 8.8. Objective - Vital Signs Vital signs: Vital Signs Temp 97.4 F L 02/12/20 12:00 Pulse 90 02/12/20 12:00 Resp 16 02/12/20 12:00 BP 107/68 02/12/20 12:00 Pulse Ox 94 L 02/12/20 12:00 Intake & Output 02/11/20 02/12/20 02/12/20 18:59 06:59 18:59 Intake Total 575 90 Output Total 750 200 Balance -175 -200 90 Weight 63 kg 89 kg 89 kg Intake: Intake, IV Titration 50 Amount ceFAZolin 2 gm In Sodium 50 Chloride 0.9% 50 ml @ 100 mls/hr IVPB ONCE ONE Rx# :[id number] Oral 525 90 Output: Urine 750 200 Other: Voiding Method Indwelling Catheter Indwelling Catheter Indwelling Catheter # Voids 0 # Bowel Movements 1 - Exam Patient alert but still somewhat confused. Heart regular rate and rhythm, lungs clear to auscultation bilaterally. Left lower extremity [id number]-[id number]-[id number] amputation with dressing that is clean dry and intact. Dressing was changed that had some old bloody drainage. Amputation site is well approximated with wilda. The amputation stump was re-dressed. - Labs CBC & Chem 7: 02/12/20 06:47 02/12/20 06:47 Labs: Abnormal Lab Results - Last 24 Hours (Table) 02/12/20 02/12/20 Range/Units 06:47 06:47 WBC 16.7 H (3.8-10.6) k/uL RBC 3.56 L (3.80-5.40) m/uL Hgb 8.8 L (11.4-16.0) gm/dL Hct 29.9 L (34.0-46.0) % MCH 24.7 L (25.0-35.0) pg MCHC 29.3 L (31.0-37.0) g/dL RDW 19.4 H (11.5-15.5) % Plt Count 506 H (150-450) k/uL Neutrophils # 13.9 H (1.3-7.7) k/uL Monocytes # 1.2 H (0-1.0) k/uL Chloride 115 H (98-107) mmol/L BUN 20 H (7-17) mg/dL Glucose 111 H (74-99) mg/dL Calcium 7.9 L (8.4-10.2) mg/dL Assessment and Plan Plan: Continue daily dressing changes. Nursing was given in order to reach out to the prosthetic company to order a left AKA stump cancer spec and rigid dressing. Patient is cleared for discharge from a vascular surgical standpoint. Patient to follow-up with Dr. Braun in 7-10 days. Patient to continue aspirin and Plavix. The above dictated assessment and findings were discussed with Dr. Braun. The impression and plan of care have been directed as dictated.
--- NOTE | 2020-02-12 16:10 | P.PN ---
Subjective Progress Note Date: 02/12/20 Principal diagnosis: Patient is a 70-year-old female admitted for severe anemia. Patient up and she was confused at the time of admission although she is not confused at this time. Patient was evaluated by neurology patient doesn't appear to be encephalopathic at this time. Patient has elevated troponins which is believed secondary to anemia. Patient will undergo EGD on admission patient's hemoglobin was 6 patient doesn't have any evidence of or GI bleed at this time patient also has mildly elevated liver enzymes are do not have any repeat liver enzymes at this time these will be repeated for tomorrow. Patient is alert oriented 2-3. Patient had a recent stroke and patient is on Plavix at home. This is being held because of her severe anemia and possibility of GI bleed that cannot be ruled out. Patient was also evaluated for left iliac occlusion by vascular monsalve rgery in the recommending dual antiplatelet therapy once her anemia issues addressed. 02/03/2020 Patient continues to have a elevated troponin. Patient had an upper GI endoscopy did not show any acute GI bleed and patient is undergoing colonoscopy today. 02/04/2020 Patient underwent the angiogram of theof the extremities because of acute limb ischemia of the left lower extremity,underwent mechanical thrombectomy of left common iliac external iliac and the iliac Arteries where she had significant occlusions.probably will undergo cardiac catheterization tomorrow. Patient had a capsule endoscopy results of which are pending colonoscopy showed diverticulosis 02/05/2020 Vascular surgery is recommending fasciotomy. Cardiology is not planning on any cardiac catheterization at this time. 02/06/2020 Patient is status post fasciotomy. Patient whether cell continued to go up and no significant fevers this is probably because of the procedure this patient to me if it continues to go up tomorrow we'll workup for sepsis at the time 02/07/2020 Patient is is looking better today. She remains on IV heparin. Cardiology is recommending IV heparin anymore but will discuss with vascular surgery if it's okay to discontinue IV heparin. Chest x-ray showing small bilateral pleural effusions. Patient is on now Aldactone which will be continued. Patient clinically doesn't appear to be in heart failure exacerbation her white blood cell count is improving and are reactive Rx at this time Constitutional: Denied any fatigue denied any fever. Cardio vascular: denied any chest pain, palpitations Gastrointestinal denied any nausea vomiting Pulmonary: Denied any shortness of breath cough Neurologic denied any new focal deficits All inpatient medications were reviewed and appropriate changes in these medications as dictated in the interval history and assessment and plan. 02/08/2020 Patient is seen and evaluated in follow-up and continues to be on IV heparin with the possibility of vascular surgery performing a BKA. Patient continues to have poor oral intake and needs encouragement. No need for enteral nutrition at this time. Will continue to monitor closely. No reports of chest pain or palpitations. Patient is afebrile. No reports of shortness of breath. Hemoglobin today is 7.8. White blood count is trending down and 14.9. 02/09/2020 Patient is seen in follow-up today continues to be lethargic and moans when assessing the left lower extremity. Nursing staff patient managed to get the knee immobilizer off as she continues to be quite restless at times. Patient has been refusing to eat and per nursing staff has been coughing with small bites that are being fed to her. Patient will be nothing by mouth for now. Patient is scheduled to be nothing by mouth at midnight she will be undergoing left bydjt-mwt-qhrq amputation with vascular surgery in the morning. Cardiology also following. Patient is maintained on IV heparin and will continue at this time. Hemoglobin is 7.7 today. White blood count slightly elevated at 17.5. Patient is afebrile. 02/10/2020 Patient is seen and evaluated in follow-up with no acute overnight issues. Patient continues to have discomfort in the left lower extremity and scheduled to undergo waoll-aru-wrpa amputation with Dr. Braun today. Heparin drip has been discontinued. Family feels that her lack of eating is due to the patient not liking the food here. Patient is currently nothing by mouth for the procedure although family instructed to bring food in that they feel patient may eat. Cardiology also following recommending medical management with no further suggestions of interventions at this time. We'll continue to hold anticoagulation and discussed with vascular surgery after the procedure about appropriate timing of resuming anticoagulants. Patient and family wishes are to become a no code once again after the procedure. Hemoglobin continue to be 7.7 today and will be given a unit of PRBCs prior to surgery and will repeat labs in a.m. Patient remains afebrile. Patient denies any chest pain, shortness of breath, or palpitations. 02/11/2020 Patient is seen in follow-up status post left mxcrm-lcr-obqd amputation postop day #1. Dressing is currently dry and intact. Aspirin has been resumed. Patient continues to have generalized discomfort of her back. Patient currently awaiting reevaluation from speech pathology for swallow eval. She states she is hungry and would like to eat. Patient currently denies any chest pain, shortness of breath, or palpitations. Patient is afebrile. No reports of nausea or vomiting. Hemoglobin today is 9.3. BMP within normal limits. 02/12/2020 Patient is seen and evaluated in follow-up today with no acute overnight issues. Dressing of the left AKA continues to be dry and intact. Patient was scheduled to return back to [facility] although authorization is needed from insurance. Speech therapy did reevaluate the patient and patient is okay on dysphagia level III chopped diet with one-to-one supervision and to maintain strict aspiration precautions with the head of the bed elevated 45. Patient currently denies any chest pain, shortness of breath, or palpitations. Patient is afebrile. No reports of nausea or vomiting. Hemoglobin remained stable at 8.8 today. Will repeat a.m. labs. Case management following and if authorization is obtained patient may likely be discharged to [facility] tomorrow. Objective - Vital Signs Vital signs: Vital Signs Temp 97.4 F L 02/12/20 12:00 Pulse 90 02/12/20 12:00 Resp 16 02/12/20 12:00 BP 107/68 02/12/20 12:00 Pulse Ox 94 L 02/12/20 12:00 Intake & Output 02/11/20 02/12/20 02/12/20 18:59 06:59 18:59 Intake Total 575 90 Output Total 750 200 500 Balance -175 -200 -410 Weight 63 kg 89 kg 89 kg Intake: Intake, IV Titration 50 Amount ceFAZolin 2 gm In Sodium 50 Chloride 0.9% 50 ml @ 100 mls/hr IVPB ONCE ONE Rx# :[id number] Oral 525 90 Output: Urine 750 200 500 Other: Voiding Method Indwelling Catheter Indwelling Catheter Indwelling Catheter # Voids 0 # Bowel Movements 1 - Exam GENERAL: The patient is alert and oriented x2, not in any acute distress. Well developed, well nourished. HEENT: Pupils are round and equally reacting to light. EOMI. No scleral icterus. Does have conjunctival pallor. Normocephalic, atraumatic. No pharyngeal erythema. No thyromegaly. CARDIOVASCULAR: S1 and S2 present. No murmurs, rubs, or gallops. PULMONARY: Diminished breath sounds bilaterally, no wheezing or rhonchi noted. ABDOMEN: Soft, nontender, nondistended, normoactive bowel sounds. No palpable organomegaly. MUSCULOSKELETAL: No joint swelling or deformity. EXTREMITIES: No cyanosis, clubbing, left lower extremity dressing is dry and intact status post AKA postop day #2 NEUROLOGICAL: Gross neurological examination did not reveal any focal deficits. SKIN: No rashes. - Labs CBC & Chem 7: 02/12/20 06:47 02/12/20 06:47 Labs: Abnormal Lab Results - Last 24 Hours (Table) 02/12/20 02/12/20 Range/Units 06:47 06:47 WBC 16.7 H (3.8-10.6) k/uL RBC 3.56 L (3.80-5.40) m/uL Hgb 8.8 L (11.4-16.0) gm/dL Hct 29.9 L (34.0-46.0) % MCH 24.7 L (25.0-35.0) pg MCHC 29.3 L (31.0-37.0) g/dL RDW 19.4 H (11.5-15.5) % Plt Count 506 H (150-450) k/uL Neutrophils # 13.9 H (1.3-7.7) k/uL Monocytes # 1.2 H (0-1.0) k/uL Chloride 115 H (98-107) mmol/L BUN 20 H (7-17) mg/dL Glucose 111 H (74-99) mg/dL Calcium 7.9 L (8.4-10.2) mg/dL Assessment and Plan Assessment: -non-ST elevation myocardial infarction: Because of comorbidities cardiology is recommending medical management. Cardiology is not planning any acute interventions or cardiac catheterization at this time. -covid 19 ruled out, testing was negative -Status post left cfuvf-abv-vfca amputation, postop day #1, vascular surgery fo llowing -Severe anemia without any overt evidence of acute GI bleed patient, hemoglobin today is 9.3. Will monitor closely -Peripheral vascular disease with a severe left iliac occlusion patient is s tatus post thrombectomy and fasciotomy. Underwent AKA of the left lower extremity with vascular surgery postop day #2 -Recent cerebral vascular accident with mild residual weakness on the right side -Mildly elevated liver enzymes, improved -Leukocytosis most likely reactive, without any evidence of infection Plan: Continue current medications, management, and symptomatic treatment. Patient underwent AKA of the left lower extremity yesterday postop day #2. no acute overnight issues. Patient was reevaluated by speech therapy recommending dysphagia 3 chopped diet with one-to-one supervision and head of the bed elevated 30-45 for strict aspiration precautions. Aspirin has been resumed. patient will resume Plavix. Will repeat a.m. labs. Further recommendations to follow. Case management and social work also following as patient will be going to ECF once stabilized and discharged. authorization pending for [facility] in case management following an was notified if authorization is obtained ECF may accommodate discharge on Saturday. Cardiology also following recommending to continue with medical management and no surgical intervention of cardiac catheterization is planned at this time. Prognosis is guarded. possible discharge in 24 hours.
[2020-02-13] MEDS: FERROUS SULFATE 325 MG TAB PO SCH ×2 (06:40→17:08)
[2020-02-13] MEDS: LEVOTHYROXINE 112 MCG TAB PO SCH (06:40)
[2020-02-13] MEDS: IPRATROPIUM-ALBUTEROL 3 ML NEB INHALATION PRN (08:28)
[2020-02-13] MEDS: BUDESONIDE 0.5 MG/2 ML NEBU INHALATION SCH ×2 (08:28→21:30)
[2020-02-13] MEDS: PANTOPRAZOLE 40 MG/10 ML VIAL IVP SCH ×2 (08:51→20:43)
[2020-02-13] MEDS: ATORVASTATIN 40 MG TAB PO SCH (08:51)
[2020-02-13] MEDS: ASPIRIN 81 MG PO SCH (08:51)
[2020-02-13] MEDS: METOPROLOL TARTRATE 25 MG TAB PO SCH ×2 (08:51→20:43)
[2020-02-13] MEDS: CLOPIDOGREL 75 MG TAB PO SCH (08:51)
[2020-02-13] MEDS: SPIRONOLACTONE 25 MG TAB PO SCH (08:51)
[2020-02-13] MEDS: MORPHINE SULFATE 2 MG/ML SYRINGE IVP PRN ×2 (14:39→23:16)
[2020-02-14 06:28] LABS: Anisocytosis Moderate; HCT 32.2 % (34.0-46.0); HGB 9.5 gm/dL (11.4-16.0); Hypochromasia Marked; MCH 24.6 pg (25.0-35.0); MCHC 29.4 g/dL (31.0-37.0); MCV 83.8 fL (80.0-100.0); Microcytosis Slight; Platelet Count 525 k/uL (150-450); Poikilocytosis Moderate; RBC 3.85 m/uL (3.80-5.40); RDW 20.6 % (11.5-15.5); WBC 14.3 k/uL (3.8-10.6)
[2020-02-14 06:33] LABS: African American GFR (CKD) >90 (>60 ml/min/1.73 sqM); Anion Gap 6 mmol/L; Blood Urea Nitrogen 15 mg/dL (7-17); Calcium 8.2 mg/dL (8.4-10.2); Carbon Dioxide 24 mmol/L (22-30); Chloride 112 mmol/L (98-107); Glucose 98 mg/dL (74-99); Non-African American GFR(CKD) >90 (>60 ml/min/1.73 sqM); Potassium 4.1 mmol/L (3.5-5.1); Sodium 142 mmol/L (137-145)
[2020-02-14] MEDS: FERROUS SULFATE 325 MG TAB PO SCH ×2 (06:44→16:14)
[2020-02-14] MEDS: LEVOTHYROXINE 112 MCG TAB PO SCH (06:44)
[2020-02-14 07:01] LABS: Band Neutrophils % 1 %; Large Platelets Present; Lymphocytes # (M) 1.29 k/uL (1.0-4.8); Monocytes # (M) 1.29 k/uL (0-1.0); Neutrophils % (M) 81 %; Nucleated Red Blood Cells 0 /100 WBC (0-0); Total Cells Counted 100
[2020-02-14 07:09] LABS: Polychromasia Present
[2020-02-14] MEDS: BUDESONIDE 0.5 MG/2 ML NEBU INHALATION SCH ×2 (08:24→20:57)
[2020-02-14] MEDS: METOPROLOL TARTRATE 25 MG TAB PO SCH ×2 (09:07→20:50)
[2020-02-14] MEDS: SPIRONOLACTONE 25 MG TAB PO SCH (09:07)
[2020-02-14] MEDS: ATORVASTATIN 40 MG TAB PO SCH (09:08)
[2020-02-14] MEDS: CLOPIDOGREL 75 MG TAB PO SCH (09:08)
[2020-02-14] MEDS: ASPIRIN 81 MG PO SCH (09:08)
[2020-02-14] MEDS: PANTOPRAZOLE 40 MG/10 ML VIAL IVP SCH ×2 (09:08→20:50)
--- NOTE | 2020-02-14 12:26 | P.PN ---
Subjective Progress Note Date: 02/13/20 Principal diagnosis: -non-ST elevation myocardial infarction: cardiology is recommending medical management. -Status post left vocwu-fhd-aqyr amputation Patient is a 70-year-old female admitted for severe anemia. Patient up and she was confused at the time of admission although she is not confused at this time. Patient was evaluated by neurology patient doesn't appear to be encephalopathic at this time. Patient has elevated troponins which is believed secondary to anemia. Patient will undergo EGD on admission patient's hemoglobin was 6 patient doesn't have any evidence of or GI bleed at this time patient also has mildly elevated liver enzymes are do not have any repeat liver enzymes at this time these will be repeated for tomorrow. Patient is alert oriented 2-3. Patient had a recent stroke and patient is on Plavix at home. This is being held because of her severe anemia and possibility of GI bleed that cannot be ruled out. Patient was also evaluated for left iliac occlusion by vascular surgery in the recommending dual antiplatelet therapy once her anemia issues addressed. 02/03/2020 Patient continues to have a elevated troponin. Patient had an upper GI endoscopy did not show any acute GI bleed and patient is undergoing colonoscopy today. 02/04/2020 Patient underwent the angiogram of theof the extremities because of acute limb ischemia of the left lower extremity,underwent mechanical thrombectomy of left common iliac external iliac and the iliac Arteries where she had significant occlusions.probably will undergo cardiac catheterization tomorrow. Patient had a capsule endoscopy results of which are pending colonoscopy showed diverticulosis 02/05/2020 Vascular surgery is recommending fasciotomy. Cardiology is not planning on any cardiac catheterization at this time. 02/06/2020 Patient is status post fasciotomy. Patient whether cell continued to go up and no significant fevers this is probably because of the procedure this patient to me if it continues to go up tomorrow we'll workup for sepsis at the time 02/07/2020 Patient is is looking better today. She remains on IV heparin. Cardiology is recommending IV heparin anymore but will discuss with vascular surgery if it's okay to discontinue IV heparin. Chest x-ray showing small bilateral pleural effusions. Patient is on now Aldactone which will be continued. Patient cl inically doesn't appear to be in heart failure exacerbation her white blood cell count is improving and are reactive Rx at this time 02/08/2020 Patient is seen and evaluated in follow-up and continues to be on IV heparin with the possibility of vascular surgery performing a BKA. Patient continues to have poor oral intake and needs encouragement. No need for enteral nutrition at this time. Will continue to monitor closely. No reports of chest pain or palpitations. Patient is afebrile. No reports of shortness of breath. Hemoglobin today is 7.8. White blood count is trending down and 14.9. 02/09/2020 Patient is seen in follow-up today continues to be lethargic and moans when assessing the left lower extremity. Nursing staff patient managed to get the knee immobilizer off as she continues to be quite restless at times. Patient has been refusing to eat and per nursing staff has been coughing with small bites that are being fed to her. Patient will be nothing by mouth for now. Patient is scheduled to be nothing by mouth at midnight she will be undergoing left ttjgb-oqv-uinq amputation with vascular surgery in the morning. Cardiology also following. Patient is maintained on IV heparin and will continue at this time. Hemoglobin is 7.7 today. White blood count slightly elevated at 17.5. Patient is afebrile. 02/10/2020 Patient is seen and evaluated in follow-up with no acute overnight issues. Patient continues to have discomfort in the left lower extremity and scheduled to undergo krupd-hqk-ommf amputation with Dr. Braun today. Heparin drip has been discontinued. Family feels that her lack of eating is due to the patient not liking the food here. Patient is currently nothing by mouth for the procedure although family instructed to bring food in that they feel patient may eat. Cardiology also following recommending medical management with no further suggestions of interventions at this time. We'll continue to hold anticoagulation and discussed with vascular surgery after the procedure about appropriate timing of resuming anticoagulants. Patient and family wishes are to become a no code once again after the procedure. Hemoglobin continue to be 7.7 today and will be given a unit of PRBCs prior to surgery and will repeat labs in a.m. Patient remains afebrile. Patient denies any chest pain, shortness of breath, or palpitations. 02/11/2020 Patient is seen in follow-up status post left sldpz-cuo-nlsh amputation postop day #1. Dressing is currently dry and intact. Aspirin has been resumed. Patient continues to have generalized discomfort of her back. Patient currently awaiting reevaluation from speech pathology for swallow eval. She states she is hungry and would like to eat. Patient currently denies any chest pain, shortness of breath, or palpitations. Patient is afebrile. No reports of nausea or vomiting. Hemoglobin today is 9.3. BMP within normal limits. 02/12/2020 Patient is seen and evaluated in follow-up today with no acute overnight issues. Dressing of the left AKA continues to be dry and intact. Patient was scheduled to return back to [facility] although authorization is needed from insurance. Speech therapy did reevaluate the patient and patient is okay on dysphagia level III chopped diet with one-to-one supervision and to maintain strict aspiration precautions with the head of the bed elevated 45. Patient currently denies any chest pain, shortness of breath, or palpitations. Patient is afebrile. No repo rts of nausea or vomiting. Hemoglobin remained stable at 8.8 today. Will repeat a.m. labs. Case management following and if authorization is obtained patient may likely be discharged to [facility] tomorrow. 02/13/2020 Patient is currently lying in the bed comfortably. Awake alert but agitated sometimes. Patient was continued on dysphagia level III diet with one-to-one supervision. Patient is following. Currently denied any complaints of chest pain or short of breath. No fever no chills. No nausea vomiting or abdominal pain. Patient is being continued on medical management for acute non-ST elevated ID. Possible discharge to rehab Constitutional: Denied any fatigue denied any fever. Cardio vascular: denied any chest pain, palpitations Gastrointestinal denied any nausea vomiting Pulmonary: Denied any shortness of breath cough Neurologic denied any new focal deficits All inpatient medications were reviewed and appropriate changes in these medications as dictated in the interval history and assessment and plan. . Objective - Vital Signs Vital signs: Vital Signs Temp 98.1 F 02/13/20 08:00 Pulse 81 02/13/20 16:00 Resp 16 02/13/20 16:00 BP 128/69 02/13/20 16:00 Pulse Ox 95 02/13/20 16:00 Intake & Output 02/13/20 02/13/20 02/14/20 06:59 18:59 06:59 Intake Total 200 Output Total 350 400 Balance -350 -200 Weight 88 kg Intake: Oral 200 Output: Urine 350 400 Other: Voiding Method Indwelling Catheter Indwelling Catheter # Voids 0 - Exam GENERAL: The patient is alert and oriented x2, not in any acute distress. Well developed, well nourished. HEENT: Pupils are round and equally reacting to light. EOMI. No scleral icterus. Does have conjunctival pallor. Normocephalic, atraumatic. No pharyngeal erythema. No thyromegaly. CARDIOVASCULAR: S1 and S2 present. No murmurs, rubs, or gallops. PULMONARY: Diminished breath sounds bilaterally, no wheezing or rhonchi noted. ABDOMEN: Soft, nontender, nondistended, normoactive bowel sounds. No palpable organomegaly. MUSCULOSKELETAL: No joint swelling or deformity. EXTREMITIES: No cyanosis, clubbing, left lower extremity dressing is dry and intact status post AKA NEUROLOGICAL: Gross neurological examination did not reveal any focal deficits. SKIN: No rashes. Intact. Psychological: Cooperative agitated at times. - Labs CBC & Chem 7: 02/13/ 05:43 02/13/ 05:43 Assessment and Plan Assessment: -non-ST elevation myocardial infarction: Because of comorbidities cardiology is recommending medical management. Cardiology is not planning any acute interventions or cardiac catheterization at this time. -covid 19 ruled out, testing was negative -Status post left bbbbb-myd-gznp amputation, postop day #3, vascular surgery following -Severe anemia without any overt evidence of acute GI bleed patient, hemoglobin today is 9.3. Will monitor closely -Peripheral vascular disease with a severe left iliac occlusion patient is status post thrombectomy and fasciotomy. Underwent AKA of the left lower extremity with vascular surgery postop day #2 -Recent cerebral vascular accident with mild residual weakness on the right side -Mildly elevated liver enzymes, improved -Leukocytosis most likely reactive, without any evidence of infection Plan: Continue current medications, management, and symptomatic treatment. Patient underwent AKA of the left lower extremity. no acute overnight issues. Patient was reevaluated by speech therapy recommending dysphagia 3 chopped diet with one-to-one supervision and head of the bed elevated 30-45 for strict aspiration precautions. Aspirin has been resumed. patient will resume Plavix. Will repeat a.m. labs. Further recommendations to follow. Case management and social work also following as patient will be going to [facility] once stabilized and discharged. authorization pending for [facility] in case management following an was notified if authorization is obtained ECF may accommodate discharge on Saturday. Cardiology also following recommending to continue with medical management and no surgical intervention of cardiac catheterization is planned at this time. Prognosis is guarded. possible discharge in 24 hours. Time with Patient: Greater than 30
[2020-02-14] MEDS: MORPHINE SULFATE 2 MG/ML SYRINGE IVP PRN ×2 (12:36→20:50)
--- NOTE | 2020-02-15 00:04 | P.PN ---
Subjective Progress Note Date: 02/14/20 Principal diagnosis: -non-ST elevation myocardial infarction: cardiology is recommending medical management. -Status post left tkwpc-ctw-qjpn amputation Patient is a 70-year-old female admitted for severe anemia. Patient up and she was confused at the time of admission although she is not confused at this time. Patient was evaluated by neurology patient doesn't appear to be encephalopathic at this time. Patient has elevated troponins which is believed secondary to anemia. Patient will undergo EGD on admission patient's hemoglobin was 6 patient doesn't have any evidence of or GI bleed at this time patient also has mildly elevated liver enzymes are do not have any repeat liver enzymes at this time these will be repeated for tomorrow. Patient is alert oriented 2-3. Patient had a recent stroke and patient is on Plavix at home. This is being held because of her severe anemia and possibility of GI bleed that cannot be ruled out. Patient was also evaluated for left iliac occlusion by vascular surgery in the recommending dual antiplatelet therapy once her anemia issues addressed. 02/03/2020 Patient continues to have a elevated troponin. Patient had an upper GI endoscopy did not show any acute GI bleed and patient is undergoing colonoscopy today. 02/04/2020 Patient underwent the angiogram of theof the extremities because of acute limb ischemia of the left lower extremity,underwent mechanical thrombectomy of left common iliac external iliac and the iliac Arteries where she had significant occlusions.probably will undergo cardiac catheterization tomorrow. Patient had a capsule endoscopy results of which are pending colonoscopy showed diverticulosis 02/05/2020 Vascular surgery is recommending fasciotomy. Cardiology is not planning on any cardiac catheterization at this time. 02/06/2020 Patient is status post fasciotomy. Patient whether cell continued to go up and no significant fevers this is probably because of the procedure this patient to me if it continues to go up tomorrow we'll workup for sepsis at the time 02/07/2020 Patient is is looking better today. She remains on IV heparin. Cardiology is recommending IV heparin anymore but will discuss with vascular surgery if it's okay to discontinue IV heparin. Chest x-ray showing small bilateral pleural effusions. Patient is on now Aldactone which will be continued. Patient cl inically doesn't appear to be in heart failure exacerbation her white blood cell count is improving and are reactive Rx at this time 02/08/2020 Patient is seen and evaluated in follow-up and continues to be on IV heparin with the possibility of vascular surgery performing a BKA. Patient continues to have poor oral intake and needs encouragement. No need for enteral nutrition at this time. Will continue to monitor closely. No reports of chest pain or palpitations. Patient is afebrile. No reports of shortness of breath. Hemoglobin today is 7.8. White blood count is trending down and 14.9. 02/09/2020 Patient is seen in follow-up today continues to be lethargic and moans when assessing the left lower extremity. Nursing staff patient managed to get the knee immobilizer off as she continues to be quite restless at times. Patient has been refusing to eat and per nursing staff has been coughing with small bites that are being fed to her. Patient will be nothing by mouth for now. Patient is scheduled to be nothing by mouth at midnight she will be undergoing left iyrbt-oxn-oeph amputation with vascular surgery in the morning. Cardiology also following. Patient is maintained on IV heparin and will continue at this time. Hemoglobin is 7.7 today. White blood count slightly elevated at 17.5. Patient is afebrile. 02/10/2020 Patient is seen and evaluated in follow-up with no acute overnight issues. Patient continues to have discomfort in the left lower extremity and scheduled to undergo lxcir-ylx-mxdx amputation with Dr. Braun today. Heparin drip has been discontinued. Family feels that her lack of eating is due to the patient not liking the food here. Patient is currently nothing by mouth for the procedure although family instructed to bring food in that they feel patient may eat. Cardiology also following recommending medical management with no further suggestions of interventions at this time. We'll continue to hold anticoagulation and discussed with vascular surgery after the procedure about appropriate timing of resuming anticoagulants. Patient and family wishes are to become a no code once again after the procedure. Hemoglobin continue to be 7.7 today and will be given a unit of PRBCs prior to surgery and will repeat labs in a.m. Patient remains afebrile. Patient denies any chest pain, shortness of breath, or palpitations. 02/11/2020 Patient is seen in follow-up status post left hbpmx-ocq-gdak amputation postop day #1. Dressing is currently dry and intact. Aspirin has been resumed. Patient continues to have generalized discomfort of her back. Patient currently awaiting reevaluation from speech pathology for swallow eval. She states she is hungry and would like to eat. Patient currently denies any chest pain, shortness of breath, or palpitations. Patient is afebrile. No reports of nausea or vomiting. Hemoglobin today is 9.3. BMP within normal limits. 02/12/2020 Patient is seen and evaluated in follow-up today with no acute overnight issues. Dressing of the left AKA continues to be dry and intact. Patient was scheduled to return back to [facility] although authorization is needed from insurance. Speech therapy did reevaluate the patient and patient is okay on dysphagia level III chopped diet with one-to-one supervision and to maintain strict aspiration precautions with the head of the bed elevated 45. Patient currently denies any chest pain, shortness of breath, or palpitations. Patient is afebrile. No repo rts of nausea or vomiting. Hemoglobin remained stable at 8.8 today. Will repeat a.m. labs. Case management following and if authorization is obtained patient may likely be discharged to [facility] tomorrow. 02/13/2020 Patient is currently lying in the bed comfortably. Awake alert but agitated sometimes. Patient was continued on dysphagia level III diet with one-to-one supervision. Patient is following. Currently denied any complaints of chest pain or short of breath. No fever no chills. No nausea vomiting or abdominal pain. Patient is being continued on medical management for acute non-ST elevated TN. Possible discharge to rehab 02/14/2020 Patient is currently lying in the bed comfortably. Awake alert oriented x3. Status post left AKA. Stump is clean and healing well. No complaints of fever or chills. Tolerating oral diet. Patient had elevated troponin level/possible non-ST elevated TN on admission cardiology recommends conservative management. Anticipate discharge to rehab in the next 24 hours. Constitutional: Denied any fatigue denied any fever. Cardio vascular: denied any chest pain, palpitations Gastrointestinal denied any nausea vomiting Pulmonary: Denied any shortness of breath cough Neurologic denied any new focal deficits All inpatient medications were reviewed and appropriate changes in these medications as dictated in the interval history and assessment and plan. . Objective - Vital Signs Vital signs: Vital Signs Temp 98.4 F 02/14/20 08:00 Pulse 72 02/14/20 08:00 Resp 18 02/14/20 08:00 BP 129/71 02/14/20 08:00 Pulse Ox 96 02/14/20 08:00 Intake & Output 02/13/20 02/14/20 02/14/20 18:59 06:59 18:59 Intake Total 200 Output Total 400 850 Balance -200 -850 Weight 85 kg Intake: Oral 200 Output: Urine 400 850 Other: Voiding Method Indwelling Catheter Indwelling Catheter Indwelling Catheter # Voids 0 - Exam GENERAL: The patient is alert and oriented x2, not in any acute distress. Well developed, well nourished. HEENT: Pupils are round and equally reacting to light. EOMI. No scleral icterus. Does have conjunctival pallor. Normocephalic, atraumatic. No pharyngeal erythema. No thyromegaly. CARDIOVASCULAR: S1 and S2 present. No murmurs, rubs, or gallops. PULMONARY: Diminished breath sounds bilaterally, no wheezing or rhonchi noted. ABDOMEN: Soft, nontender, nondistended, normoactive bowel sounds. No palpable organomegaly. MUSCULOSKELETAL: No joint swelling or deformity. EXTREMITIES: No cyanosis, clubbing, left lower extremity dressing is dry and intact status post AKA NEUROLOGICAL: Gross neurological examination did not reveal any focal deficits. SKIN: No rashes. Intact. Psychological: Cooperative agitated at times. - Labs CBC & Chem 7: 02/14/20 05:43 02/14/20 05:43 Labs: Abnormal Lab Results - Last 24 Hours (Table) 02/14/20 02/14/20 Range/Units 05:43 05:43 WBC 14.3 H (3.8-10.6) k/uL Hgb 9.5 L (11.4-16.0) gm/dL Hct 32.2 L (34.0-46.0) % MCH 24.6 L (25.0-35.0) pg MCHC 29.4 L (31.0-37.0) g/dL RDW 20.6 H (11.5-15.5) % Plt Count 525 H (150-450) k/uL Neutrophils # (Manual) 11.70 H (1.3-7.7) k/uL Monocytes # (Manual) 1.29 H (0-1.0) k/uL Chloride 112 H (98-107) mmol/L Calcium 8.2 L (8.4-10.2) mg/dL Assessment and Plan Assessment: -non-ST elevation myocardial infarction: Because of comorbidities cardiology is recommending medical management. Cardiology is not planning any acute interventions or cardiac catheterization at this time. -covid 19 ruled out, testing was negative -Status post left bgjqh-qwt-goro amputation, postop day #4, vascular surgery following -Severe anemia without any overt evidence of acute GI bleed patient, hemoglobin today is 9.3. Will monitor closely -Peripheral vascular disease with a severe left iliac occlusion patient is status post thrombectomy and fasciotomy. Underwent AKA of the left lower extr emity with vascular surgery postop day #2 -Recent cerebral vascular accident with mild residual weakness on the right side -Mildly elevated liver enzymes, improved -Leukocytosis most likely reactive, without any evidence of infection Plan: Continue current medications, management, and symptomatic treatment. Patient underwent AKA of the left lower extremity. no acute overnight issues. Patient was reevaluated by speech therapy recommending dysphagia 3 chopped diet with one-to-one supervision and head of the bed elevated 30-45 for strict aspiration precautions. Aspirin has been resumed. patient will resume Plavix. Will repeat a.m. labs. Further recommendations to follow. Case management and social work also following as patient will be going to [facility] once stabilized and discharged. iftikhar qiuization pending for [facility] . Cardiology also following recommending to continue with medical management and no surgical intervention of cardiac catheterization is planned at this time. Prognosis is guarded. possible discharge in 24 hours. Time with Patient: Greater than 30
[2020-02-15] MEDS: ACETAMINOPHEN TAB 325 MG TAB PO PRN (00:53)
[2020-02-15] MEDS: MORPHINE SULFATE 2 MG/ML SYRINGE IVP PRN ×3 (01:22→20:35)
[2020-02-15 06:42] LABS: Anisocytosis Moderate; HCT 30.3 % (34.0-46.0); HGB 9.5 gm/dL (11.4-16.0); Hypochromasia Marked; MCH 26.1 pg (25.0-35.0); MCHC 31.3 g/dL (31.0-37.0); MCV 83.4 fL (80.0-100.0); Mean Platelet Volume 8.3; Microcytosis Slight; Platelet Count 518 k/uL (150-450); Poikilocytosis Moderate; RBC 3.63 m/uL (3.80-5.40); RDW 20.9 % (11.5-15.5); WBC 14.4 k/uL (3.8-10.6)
[2020-02-15 06:51] LABS: African American GFR (CKD) >90 (>60 ml/min/1.73 sqM); Anion Gap 4 mmol/L; Blood Urea Nitrogen 16 mg/dL (7-17); Calcium 7.9 mg/dL (8.4-10.2); Carbon Dioxide 25 mmol/L (22-30); Chloride 111 mmol/L (98-107); Glucose 90 mg/dL (74-99); Non-African American GFR(CKD) >90 (>60 ml/min/1.73 sqM); Potassium 4.1 mmol/L (3.5-5.1); Sodium 140 mmol/L (137-145)
[2020-02-15] MEDS: LEVOTHYROXINE 112 MCG TAB PO SCH (06:57)
[2020-02-15] MEDS: FERROUS SULFATE 325 MG TAB PO SCH ×2 (06:57→17:56)
[2020-02-15 07:55] LABS: Lymphocytes # (M) 1.01 k/uL (1.0-4.8); Monocytes # (M) 0.14 k/uL (0-1.0); Neutrophils # (M) 13.25 k/uL (1.3-7.7); Neutrophils % (M) 92 %; Nucleated Red Blood Cells 0 /100 WBC (0-0); Total Cells Counted 100
[2020-02-15 07:56] LABS: Polychromasia Present
[2020-02-15 07:57] LABS: Mixed Population RBC Present; Spherocytes Present
[2020-02-15] MEDS: CLOPIDOGREL 75 MG TAB PO SCH (08:50)
[2020-02-15] MEDS: PANTOPRAZOLE 40 MG/10 ML VIAL IVP SCH (08:50)
[2020-02-15] MEDS: METOPROLOL TARTRATE 25 MG TAB PO SCH ×2 (08:50→20:35)
[2020-02-15] MEDS: ATORVASTATIN 40 MG TAB PO SCH (08:50)
[2020-02-15] MEDS: ASPIRIN 81 MG PO SCH (08:50)
[2020-02-15] MEDS: SPIRONOLACTONE 25 MG TAB PO SCH (08:50)
[2020-02-15] MEDS: BUDESONIDE 0.5 MG/2 ML NEBU INHALATION SCH ×2 (09:27→19:45)
[2020-02-15 12:07] VITALS: BMI 31.7
[2020-02-15] MEDS: HYDROcodone/APAP 5-325MG 1 EACH TAB PO PRN ×2 (12:40→23:34)
--- NOTE | 2020-02-15 15:54 | P.PN ---
Subjective Progress Note Date: 02/15/20 Principal diagnosis: Patient is a 70-year-old female admitted for severe anemia. Patient up and she was confused at the time of admission although she is not confused at this time. Patient was evaluated by neurology patient doesn't appear to be encephalopathic at this time. Patient has elevated troponins which is believed secondary to anemia. Patient will undergo EGD on admission patient's hemoglobin was 6 patient doesn't have any evidence of or GI bleed at this time patient also has mildly elevated liver enzymes are do not have any repeat liver enzymes at this time these will be repeated for tomorrow. Patient is alert oriented 2-3. Patient had a recent stroke and patient is on Plavix at home. This is being held because of her severe anemia and possibility of GI bleed that cannot be ruled out. Patient was also evaluated for left iliac occlusion by vascular monsalve rgery in the recommending dual antiplatelet therapy once her anemia issues addressed. 02/03/2020 Patient continues to have a elevated troponin. Patient had an upper GI endoscopy did not show any acute GI bleed and patient is undergoing colonoscopy today. 02/04/2020 Patient underwent the angiogram of theof the extremities because of acute limb ischemia of the left lower extremity,underwent mechanical thrombectomy of left common iliac external iliac and the iliac Arteries where she had significant occlusions.probably will undergo cardiac catheterization tomorrow. Patient had a capsule endoscopy results of which are pending colonoscopy showed diverticulosis 02/05/2020 Vascular surgery is recommending fasciotomy. Cardiology is not planning on any cardiac catheterization at this time. 02/06/2020 Patient is status post fasciotomy. Patient whether cell continued to go up and no significant fevers this is probably because of the procedure this patient to me if it continues to go up tomorrow we'll workup for sepsis at the time 02/07/2020 Patient is is looking better today. She remains on IV heparin. Cardiology is recommending IV heparin anymore but will discuss with vascular surgery if it's okay to discontinue IV heparin. Chest x-ray showing small bilateral pleural effusions. Patient is on now Aldactone which will be continued. Patient clinically doesn't appear to be in heart failure exacerbation her white blood cell count is improving and are reactive Rx at this time Constitutional: Denied any fatigue denied any fever. Cardio vascular: denied any chest pain, palpitations Gastrointestinal denied any nausea vomiting Pulmonary: Denied any shortness of breath cough Neurologic denied any new focal deficits All inpatient medications were reviewed and appropriate changes in these medications as dictated in the interval history and assessment and plan. 02/08/2020 Patient is seen and evaluated in follow-up and continues to be on IV heparin with the possibility of vascular surgery performing a BKA. Patient continues to have poor oral intake and needs encouragement. No need for enteral nutrition at this time. Will continue to monitor closely. No reports of chest pain or palpitations. Patient is afebrile. No reports of shortness of breath. Hemoglobin today is 7.8. White blood count is trending down and 14.9. 02/09/2020 Patient is seen in follow-up today continues to be lethargic and moans when assessing the left lower extremity. Nursing staff patient managed to get the knee immobilizer off as she continues to be quite restless at times. Patient has been refusing to eat and per nursing staff has been coughing with small bites that are being fed to her. Patient will be nothing by mouth for now. Patient is scheduled to be nothing by mouth at midnight she will be undergoing left ejsoi-rkf-rssg amputation with vascular surgery in the morning. Cardiology also following. Patient is maintained on IV heparin and will continue at this time. Hemoglobin is 7.7 today. White blood count slightly elevated at 17.5. Patient is afebrile. 02/10/2020 Patient is seen and evaluated in follow-up with no acute overnight issues. Patient continues to have discomfort in the left lower extremity and scheduled to undergo pljzr-mec-whhy amputation with Dr. Braun today. Heparin drip has been discontinued. Family feels that her lack of eating is due to the patient not liking the food here. Patient is currently nothing by mouth for the procedure although family instructed to bring food in that they feel patient may eat. Cardiology also following recommending medical management with no further suggestions of interventions at this time. We'll continue to hold anticoagulation and discussed with vascular surgery after the procedure about appropriate timing of resuming anticoagulants. Patient and family wishes are to become a no code once again after the procedure. Hemoglobin continue to be 7.7 today and will be given a unit of PRBCs prior to surgery and will repeat labs in a.m. Patient remains afebrile. Patient denies any chest pain, shortness of breath, or palpitations. 02/11/2020 Patient is seen in follow-up status post left dvjwa-ihv-fjoo amputation postop day #1. Dressing is currently dry and intact. Aspirin has been resumed. Patient continues to have generalized discomfort of her back. Patient currently awaiting reevaluation from speech pathology for swallow eval. She states she is hungry and would like to eat. Patient currently denies any chest pain, shortness of breath, or palpitations. Patient is afebrile. No reports of nausea or vomiting. Hemoglobin today is 9.3. BMP within normal limits. 02/12/2020 Patient is seen and evaluated in follow-up today with no acute overnight issues. Dressing of the left AKA continues to be dry and intact. Patient was scheduled to return back to [facility] although authorization is needed from insurance. Speech therapy did reevaluate the patient and patient is okay on dysphagia level III chopped diet with one-to-one supervision and to maintain strict aspiration precautions with the head of the bed elevated 45. Patient currently denies any chest pain, shortness of breath, or palpitations. Patient is afebrile. No reports of nausea or vomiting. Hemoglobin remained stable at 8.8 today. Will repeat a.m. labs. Case management following and if authorization is obtained patient may likely be discharged to [facility] tomorrow. 02/13/2020 Patient is currently lying in the bed comfortably. Awake alert but agitated sometimes. Patient was continued on dysphagia level III diet with one-to-one supervision. Patient is following. Currently denied any complaints of chest pain or short of breath. No fever no chills. No nausea vomiting or abdominal pain. Patient is being continued on medical management for acute non-ST elevated [place]. Possible discharge to rehab 02/14/2020 Patient is currently lying in the bed comfortably. Awake alert oriented x3. Status post left AKA. Stump is clean and healing well. No complaints of fever or chills. Tolerating oral diet. Patient had elevated troponin level/possible non-ST elevated [place] on admission cardiology recommends conservative management. Anticipate discharge to rehab in the next 24 hours. Constitutional: Denied any fatigue denied any fever. Cardio vascular: denied any chest pain, palpitations Gastrointestinal denied any nausea vomiting Pulmonary: Denied any shortness of breath cough Neurologic denied any new focal deficits All inpatient medications were reviewed and appropriate changes in these medications as dictated in the interval history and assessment and plan. 02/15/2020 Patient is seen and evaluated in follow-up with no acute overnight issues. Patient awaiting authorization from insurance to go to [facility] for continued PT/OT therapy. Patient recently underwent left AKA and the stump site dressing is dry and intact. Patient is maintained on aspirin and Plavix and will continue at this time. Patient continues to need encouragement with eating and is maintained on dysphagia 3 diet. Patient is alert and oriented 2-3 with no reports of chest pain, shortness of breath, or palpitations. Patient is afebrile. No reports of nausea or vomiting and patient is tolerating diet. Objective - Vital Signs Vital signs: Vital Signs Temp 97.9 F 02/15/20 04:00 Pulse 77 02/15/20 08:00 Resp 16 02/15/20 11:28 BP 116/67 02/15/20 08:00 Pulse Ox 95 02/15/20 08:00 Intake & Output 02/14/20 02/15/20 02/15/20 18:59 06:59 18:59 Intake Total 100 Output Total 700 625 Balance -600 -625 Weight 86.5 kg 86.5 kg Intake: Oral 100 Output: Urine 700 625 Other: Voiding Method Indwelling Catheter Indwelling Catheter Indwelling Catheter # Bowel Movements 1 - Exam GENERAL: The patient is alert and oriented x2, not in any acute distress. Well developed, well nourished. HEENT: Pupils are round and equally reacting to light. EOMI. No scleral icterus. Does have conjunctival pallor. Normocephalic, atraumatic. No pharyngeal erythema. No thyromegaly. CARDIOVASCULAR: S1 and S2 present. No murmurs, rubs, or gallops. PULMONARY: Diminished breath sounds bilaterally, no wheezing or rhonchi noted. ABDOMEN: Soft, nontender, nondistended, normoactive bowel sounds. No palpable organomegaly. MUSCULOSKELETAL: No joint swelling or deformity. EXTREMITIES: No cyanosis, clubbing, left lower extremity dressing is dry and i ntact status post AKA postop day #5 NEUROLOGICAL: Gross neurological examination did not reveal any focal deficits. SKIN: No rashes. - Labs CBC & Chem 7: 02/15/20 05:52 02/15/20 05:52 Labs: Abnormal Lab Results - Last 24 Hours (Table) 02/15/20 02/15/20 Range/Units 05:52 05:52 WBC 14.4 H (3.8-10.6) k/uL RBC 3.63 L (3.80-5.40) m/uL Hgb 9.5 L (11.4-16.0) gm/dL Hct 30.3 L (34.0-46.0) % RDW 20.9 H (11.5-15.5) % Plt Count 518 H (150-450) k/uL Neutrophils # (Manual) 13.25 H (1.3-7.7) k/uL Chloride 111 H (98-107) mmol/L Calcium 7.9 L (8.4-10.2) mg/dL Assessment and Plan Assessment: -non-ST elevation myocardial infarction: Because of comorbidities cardiology is recommending medical management. Cardiology is not planning any acute interventions or cardiac catheterization at this time. -covid 19 ruled out, testing was negative -Status post left qungi-ctn-amgz amputation, postop day #5, vascular surgery following -Severe anemia without any overt evidence of acute GI bleed patient, hemoglobin today is 9.5. Will monitor closely -Peripheral vascular disease with a severe left iliac occlusion patient is status post thrombectomy and fasciotomy. Underwent AKA of the left lower extremity with vascular surgery postop day #5 -Recent cerebral vascular accident with mild residual weakness on the right side -Mildly elevated liver enzymes, improved -Leukocytosis most likely reactive, without any evidence of infection Plan: Continue current medications, management, and symptomatic treatment. Patient underwent AKA of the left lower extremity. no acute overnight issues. Patient was reevaluated by speech therapy recommending dysphagia 3 chopped diet with one-to-one supervision and head of the bed elevated 30-45 for strict aspiration precautions. Aspirin has been resumed. Plavix resumed. Will repeat a.m. labs. Further recommendations to follow. Case management and social work also following as patient will be going to [facility] once stabilized and discharged. authorization continues to be pending for [facility] . Further recommendations to follow. Prognosis is guarded. possible discharge in 24 hours.
[2020-02-15] MEDS: PANTOPRAZOLE 40 MG TABLET PO SCH (17:56)
[2020-02-16 04:26] VITALS: RESP 16
[2020-02-16] MEDS: FERROUS SULFATE 325 MG TAB PO SCH (06:45)
[2020-02-16] MEDS: LEVOTHYROXINE 112 MCG TAB PO SCH (06:45)
[2020-02-16] MEDS: PANTOPRAZOLE 40 MG TABLET PO SCH (06:45)
[2020-02-16] MEDS: BUDESONIDE 0.5 MG/2 ML NEBU INHALATION SCH (09:09)
[2020-02-16] MEDS: CLOPIDOGREL 75 MG TAB PO SCH (09:32)
[2020-02-16] MEDS: ASPIRIN 81 MG PO SCH (09:32)
[2020-02-16] MEDS: ATORVASTATIN 40 MG TAB PO SCH (09:32)
[2020-02-16] MEDS: SPIRONOLACTONE 25 MG TAB PO SCH (09:32)
[2020-02-16] MEDS: METOPROLOL TARTRATE 25 MG TAB PO SCH (09:33)
[2020-02-16 11:56] VITALS: PULSE 72
[2020-02-16 11:58] VITALS: BP 96/56; TEMP 97.7
--- NOTE | 2020-02-16 14:03 | P.DS ---
Providers Date of admission: 02/01/20 04:50 Expected date of discharge: 02/16/20 Attending physician: Silvana Vasquez Consults: 02/01/20 10:53 Consult Physician Urgent Consulting Provider: Dali Braun Consult Reason/Comments: 95% occlusion of the left common iliac artery Do you want consulting provider notified?: Yes 02/01/20 10:59 Consult Physician Routine Consulting Provider: Leslie Driscoll Consult Reason/Comments: previous stroke Do you want consulting provider notified?: Yes Primary care physician: Carrie Thomas Hospital Course: Final diagnosis -non-ST elevation myocardial infarction: Because of comorbidities cardiology is recommending medical management. -Covid 19 ruled out, testing was negative -Status post left deszt-scu-fxeb amputation -Severe anemia without any overt evidence of acute GI bleed patient -Peripheral vascular disease with a severe left iliac occlusion patient is status post thrombectomy and fasciotomy. Underwent AKA of the left lower extr emity with vascular surgery -Recent cerebral vascular accident with mild residual weakness on the right side -Mildly elevated liver enzymes, improved -Leukocytosis most likely reactive, without any evidence of infection Discharge disposition Patient is being discharged in a stable condition with guarded prognosis to [facility]. Patient will follow-up with Dr. Thomas upon discharge. Ludwig nt will continue with aspirin and Plavix per vascular surgery recommendations. patient instructed to follow-up with cardiology along with vascular surgery in the outpatient setting. Total time taken is 35 minutes. History of present illness This is a 70-year-old female who was recently admitted with severe anemia, confusion, and elevated troponins and was being closely monitored. patient underwent EGD with GI. Patient was also evaluated by vascular surgery during hospitalization for left iliac occlusion and ultimately underwent angiogram and then left lower extremity fasciotomy showing significant occlusions. Patient also was evaluated by cardiology and not planning any cardiac interventions at this time due to multiple complex medical issues. Patient also underwent colonoscopy showing diverticulosis. GI bleeding had resolved. Patient's left lower extremity status continued to deteriorate and was cold and mottled and patient ultimately underwent left AKA with vascular surgery yesterday. Hemoglobin has been stable and is currently 9.5. Patient will continue with aspirin and Plavix in the outpatient setting. Patient will need to follow-up with vascular surgery as well. Patient to follow-up with cardiology in the outpatient setting once more stabilized and will continue with medical management at this time. patient was provided a prescription for repeat CBC to monitor hemoglobin. Patient will returning to [facility] today. Currently no reports of chest pain, shortness of breath, or palpitations. Patient is afebrile. No reports of nausea or vomiting and patient is tolerating diet. patient to continue with PT/OT therapy in the outpatient setting. Guarded prognosis. On exam vital signs are stable. Temp is 97.7F, pulse is 72, respirations are 16, blood pressure is 96/56, oxygen saturation is 96% on room air. Cardio S1, S2 are muffled. Respiratory shows diminished breath sounds at the bases with no wheezing or rhonchi noted. Abdomen is soft and nontender. Nervous system shows mild diffuse weakness. Please refer to medication reconciliation sheet for a list of medications. Patient Condition at Discharge: Stable Plan - Discharge Summary Discharge Rx Participant: Yes New Discharge Prescriptions: New Spironolactone [Aldactone] 25 mg PO DAILY tab Aspirin 81 mg PO DAILY chew Ferrous Sulfate [Iron (65 MG Elemental)] 325 mg PO BID-W/MEALS tab Metoprolol Tartrate [Lopressor] 25 mg PO BID tab HYDROcodone/APAP 5-325MG [[place] 5-325] 1 each PO Q4HR PRN #10 tab PRN Reason: Pain Acetaminophen Tab [Tylenol] 650 mg PO Q4HR PRN tab PRN Reason: Fever And/ Or Pain Clopidogrel Bisulfate [Plavix] 75 mg PO DAILY 30 Days #30 tab Pantoprazole [Protonix] 40 mg PO AC-BID tablet. lisinopriL [Zestril] 2.5 mg PO DAILY tab Continue Levothyroxine Sodium [Synthroid] 112 mcg PO DAILY Atorvastatin Calcium [Lipitor] 40 mg PO DAILY Discontinued Lisinopril [Zestril] 10 mg PO DAILY Clopidogrel [Plavix] 75 mg PO DAILY Omeprazole 20 mg PO DAILY Discharge Medication List Atorvastatin Calcium [Lipitor] 40 mg PO DAILY 02/01/20 [History] Levothyroxine Sodium [Synthroid] 112 mcg PO DAILY 02/01/20 [History] Acetaminophen Tab [Tylenol] 650 mg PO Q4HR PRN tab 02/12/20 [Rx] Aspirin 81 mg PO DAILY chew 02/12/20 [Rx] Clopidogrel Bisulfate [Plavix] 75 mg PO DAILY 30 Days #30 tab 02/12/20 [Rx] Ferrous Sulfate [Iron (65 MG Elemental)] 325 mg PO BID-W/MEALS tab 02/12/20 [Rx] HYDROcodone/APAP 5-325MG [[place] 5-325] 1 each PO Q4HR PRN #10 tab 02/12/20 [Rx] Metoprolol Tartrate [Lopressor] 25 mg PO BID tab 02/12/20 [Rx] Spironolactone [Aldactone] 25 mg PO DAILY tab 02/12/20 [Rx] Pantoprazole [Protonix] 40 mg PO AC-BID tablet. 02/16/20 [Rx] lisinopriL [Zestril] 2.5 mg PO DAILY tab 02/16/20 [Rx] Follow up Appointment(s)/Referral(s): [facility] [Provider Group] - 1 Week Dali Braun DO [STAFF PHYSICIAN] - 2 Weeks Carrie Thomas MD [Primary Care Provider] - 1-2 days Ambulatory/Diagnostic Orders: Complete Blood Count w/diff [LAB.AMB] Time Frame: 2 Days, Location: None Selected Activity/Diet/Wound Care/Special Instructions: Patient is going to [facility] as tolerated [facility] to follow for stump [email or web address] application [employer] Continue with current diet of dysphagia 3 level chopped with one-to-one supervision and had of the bed elevated 45 and strict aspiration precautions Follow-up with vascular surgery Follow-up with cardiology Continue with local wound care to the left AKA Discharge Disposition: TRANSFER TO SNF/ECF
== END 2020-02-16 16:07 | DRG 270 ==
LOC: EC 01:32 → SUPCPDRO 01:32 → 3SCARD 04:50
PROVIDERS: ADMIT Hospitalist; ATTEND Hospitalist
PROC: 30233N1 Transfusion of Nonautologous Red Blood Cells into Peripheral Vein, Percutaneous Approach (ICD-10-PCS; 2020-02-01)
PROC: 0DJ08ZZ Inspection of Upper Intestinal Tract, Via Natural or Artificial Opening Endoscopic (ICD-10-PCS; 2020-02-02)
PROC: 0DJD8ZZ Inspection of Lower Intestinal Tract, Via Natural or Artificial Opening Endoscopic (ICD-10-PCS; 2020-02-03)
PROC: 04CJ3ZZ Extirpation of Matter from Left External Iliac Artery, Percutaneous Approach (ICD-10-PCS; principal; 2020-02-04 07:30)
PROC: 04CF3ZZ Extirpation of Matter from Left Internal Iliac Artery, Percutaneous Approach (ICD-10-PCS; principal; 2020-02-04 07:30)
PROC: B41D1ZZ Fluoroscopy of Aorta and Bilateral Lower Extremity Arteries using Low Osmolar Contrast (ICD-10-PCS; principal; 2020-02-04 07:30)
PROC: 04HD3DZ Insertion of Intraluminal Device into Left Common Iliac Artery, Percutaneous Approach (ICD-10-PCS; principal; 2020-02-04 07:30)
PROC: 04CD3ZZ Extirpation of Matter from Left Common Iliac Artery, Percutaneous Approach (ICD-10-PCS; principal; 2020-02-04 07:30)
PROC: 0KNT0ZZ Release Left Lower Leg Muscle, Open Approach (ICD-10-PCS; 2020-02-05)
PROC: 0Y6D0Z3 Detachment at Left Upper Leg, Low, Open Approach (ICD-10-PCS; 2020-02-10)
DX: I21.4 Non-ST elevation (NSTEMI) myocardial infarction (principal); I50.23 Acute on chronic systolic (congestive) heart failure; K57.31 Diverticulosis of large intestine without perforation or abscess with bleeding; G93.41 Metabolic encephalopathy; I69.351 Hemiplegia and hemiparesis following cerebral infarction affecting right dominant side; I74.5 Embolism and thrombosis of iliac artery; D50.9 Iron deficiency anemia, unspecified; D72.829 Elevated white blood cell count, unspecified; E03.9 Hypothyroidism, unspecified; E78.5 Hyperlipidemia, unspecified; F03.90 Unspecified dementia, unspecified severity, without behavioral disturbance, psychotic disturbance, mood disturbance, and anxiety; I11.0 Hypertensive heart disease with heart failure; I25.10 Atherosclerotic heart disease of native coronary artery without angina pectoris; I25.5 Ischemic cardiomyopathy; I34.0 Nonrheumatic mitral (valve) insufficiency; I69.320 Aphasia following cerebral infarction; I70.8 Atherosclerosis of other arteries; I73.9 Peripheral vascular disease, unspecified; I77.1 Stricture of artery; K64.8 Other hemorrhoids; R62.7 Adult failure to thrive; R74.0 Nonspecific elevation of levels of transaminase and lactic acid dehydrogenase [LDH]; Z66 Do not resuscitate; Z20.828 Contact with and (suspected) exposure to other viral communicable diseases; Z79.02 Long term (current) use of antithrombotics/antiplatelets; Z79.82 Long term (current) use of aspirin; Z79.890 Hormone replacement therapy; Z79.899 Other long term (current) drug therapy; Z82.3 Family history of stroke; Z87.891 Personal history of nicotine dependence; R94.5 Abnormal results of liver function studies; F10.11 Alcohol abuse, in remission; Z89.022 Acquired absence of left finger(s); Z89.021 Acquired absence of right finger(s); Z83.79 Family history of other diseases of the digestive system
CPT/HCPCS: 36415; 36430; 37184; 37221; 43235; 45378; 64447; 70450; 71045; 71275; 74174; 75710; 76942; 80048; 80053; 80061; 80306; 81001; 82553; 82607; 82728; 82746; 83540; 83550; 83880; 84443; 84450; 84460; 84484; 85025; 85027; 85610; 85730; 86850; 86900; 86901; 86920; 87040; 87635; 91110; 93005; 93306; 93923; 94640; 94760; 96360; 99291

== ENCOUNTER 2020-05-07 08:35 | Inpatient (IN) | payer MEDICARE, OTHER ==
[2020-05-07] MEDS ORDERED: SODIUM CHLORIDE 0.9% 1,000 ML IV STA ×3 (08:42→09:32)
[2020-05-07 08:54] LABS: Glucose,Whole Blood 127 mg/dL (75-99)
--- NOTE | 2020-05-07 08:55 | ED ---
General Adult HPI - General Chief complaint: Altered Mental Status Stated complaint: JHON Time Seen by Provider: 05/07/20 08:35 Source: EMS, RN notes reviewed, old records reviewed Mode of arrival: EMS Limitations: altered mental status, physical limitation - History of Present Illness Initial comments: This is a 70-year-old female with extensive medical history including CVA with aphasia left ytdav-jth-spac amputation previous amputations of all her fingers on both hands except for the thumbs non-STEMI who was brought in from a residential today with complaints of decreased responsiveness she was found have A. fib with RVR with heart rates in the 140s she was hypotensive into With hypoxemia noted. Patient's pressure did improve after IV fluids were administered. As well as the heart rate improved after the same. The blood pressures initially were in the 60s/30s heart rate was in the 140s plus after 800 mL of fluid the heart rate came down to about 110 and a blood pressure 114/71. This apparently was noted to start somewhere around 3:30 this morning. Patient herself is a poor historian no reports of any fever she was covid negative other this week - Related Data Home Medications Medication Instructions Recorded Confirmed Atorvastatin Calcium [Lipitor] 40 mg PO HS@199902/01/20 05/07/20 Levothyroxine Sodium [Synthroid] 112 mcg PO DAILY@69902/01/20 05/07/20 Acetaminophen Tab [Tylenol] 325 mg PO Q4HR PRN 05/07/20 05/07/20 Aspirin 81 mg PO DAILY@1400 05/07/20 05/07/20 Clopidogrel Bisulfate [Plavix] 75 mg PO DAILY@1400 05/07/20 05/07/20 Cyanocobalamin [Vitamin B-12] 500 mcg PO DAILY@0605/07/20 05/07/20 Folic Acid 0.4 mg PO DAILY@0605/07/20 05/07/20 Lansoprazole [Prevacid] 15 mg PO DAILY@69905/07/20 05/07/20 Megestrol Acetate 400 mg PO DAILY@69905/07/20 05/07/20 Metoprolol Tartrate [Lopressor] 25 mg PO BID@0700,1600 05/07/20 05/07/20 Spironolactone [Aldactone] 25 mg PO DAILY@0705/07/20 05/07/20 lisinopriL [Zestril] 5 mg PO DAILY@0600 05/07/20 05/07/20 Allergies Allergy/AdvReac Type Severity Reaction Status Date / Time No Known Allergies Allergy Verified 05/07/20 09:04 Review of Systems ROS Statement: Those systems with pertinent positive or pertinent negative responses have been documented in the HPI. ROS Other: All systems not noted in ROS Statement are negative. Past Medical History Past Medical History: Unable to Obtain History of Any Multi-Drug Resistant Organisms: Unobtainable Past Surgical History: Unable to Obtain Additional Past Surgical History / Comment(s): bilateral finger amputations Past Anesthesia/Blood Transfusion Reactions: No Reported Reaction Past Psychological History: Unable to Obtain Smoking Status: Former smoker Past Alcohol Use History: Unable to Obtain Past Drug Use History: Unable to Obtain - Past Family History Mother Additional Family Medical History / Comment(s): hepatitis. Brother(s) Additional Family Medical History / Comment(s): hepatitis. General Exam - General Exam Comments Initial Comments: This a well-developed asthenic appearing female who is awake but lethargic Limitations: altered mental status, physical limitation General appearance: alert, lethargic Head exam: Present: atraumatic, normocephalic, normal inspection Eye exam: Present: normal appearance, PERRL, EOMI. Absent: scleral icterus, conjunctival injection, periorbital swelling ENT exam: Present: mucous membranes dry Neck exam: Present: normal inspection. Absent: tenderness, meningismus, lymphadenopathy Respiratory exam: Present: decreased breath sounds. Absent: respiratory distress, wheezes, rales, rhonchi, stridor Cardiovascular Exam: Present: tachycardia, irregular rhythm. Absent: systolic murmur, diastolic murmur, rubs, gallop, clicks GI/Abdominal exam: Present: soft, normal bowel sounds. Absent: distended, tenderness, guarding, rebound, rigid Extremities exam: Present: full ROM, normal capillary refill, other (Amputations as noted in the history of fingers on both hands except for thumbs and [id number] of dictation the left lower extremity). Absent: tenderness, pedal edema, joint swelling, calf tenderness Back exam: Present: normal inspection Neurological exam: Present: alert, altered Psychiatric exam: Present: normal affect, normal mood Skin exam: Present: warm, dry, intact, normal color. Absent: rash Course Vital Signs 05/07/20 05/07/20 05/07/20 08:36 08:50 09:13 Temperature 98.1 F Pulse Rate 108 H 111 H 105 H Respiratory 15 25 H 26 H Rate Blood Pressure 83/43 83/43 92/43 O2 Sat by Pulse 93 L 94 L 95 Oximetry 05/07/20 05/07/20 09:30 10:00 Temperature Pulse Rate 105 H 96 Respiratory 28 H 28 H Rate Blood Pressure 91/40 93/70 O2 Sat by Pulse 95 97 Oximetry - Reevaluation(s) Reevaluation #1: 05/07/20 11:24 Visit seem more responsive after IV fluids. Her daughter was present bedside she's states she has not seen her mother about 2 months due to the patient and make regulations. She does state that the amputation of the left lower extremity was at the last admission. The finger amputations were in an industrial accident many years ago. Long discussion the patient's daughter patient requests no CODE STATUS. Patient will be admitted Medical Decision Making - Lab Data Result diagrams: 05/07/20 08:46 05/07/20 08:46 Lab Results 05/07/20 05/07/20 05/07/20 Range/Units 08:46 08:46 08:46 WBC 17.9 H (3.8-10.6) k/uL RBC 4.10 (3.80-5.40) m/uL Hgb 11.8 (11.4-16.0) gm/dL Hct 39.1 (34.0-46.0) % MCV 95.4 (80.0-100.0) fL MCH 28.7 (25.0-35.0) pg MCHC 30.1 L (31.0-37.0) g/dL RDW 16.7 H (11.5-15.5) % Plt Count 513 H (150-450) k/uL Neutrophils % 89 % Lymphocytes % 5 % Monocytes % 5 % Eosinophils % 0 % Basophils % 0 % Neutrophils # 15.9 H (1.3-7.7) k/uL Lymphocytes # 0.9 L (1.0-4.8) k/uL Monocytes # 0.8 (0-1.0) k/uL Eosinophils # 0.1 (0-0.7) k/uL Basophils # 0.0 (0-0.2) k/uL Hypochromasia Moderate Anisocytosis Slight PT 11.1 (9.0-12.0) sec INR 1.1 (<1.2) APTT 22.7 (22.0-30.0) sec Sodium 150 H (137-145) mmol/L Potassium 5.6 H (3.5-5.1) mmol/L Chloride 120 H (98-107) mmol/L Carbon Dioxide 18 L (22-30) mmol/L Anion Gap 12 mmol/L BUN 84 H (7-17) mg/dL Creatinine 3.03 H (0.52-1.04) mg/dL Est GFR (CKD-EPI)AfAm 17 (>60 ml/min/1.73 sqM) Est GFR (CKD-EPI)NonAf 15 (>60 ml/min/1.73 sqM) Glucose 127 H (74-99) mg/dL POC Glucose (mg/dL) (75-99) mg/dL POC Glu Electrician Technician ID Plasma Lactic Acid Juan (0.7-2.0) mmol/L Calcium 9.2 (8.4-10.2) mg/dL Magnesium 2.2 (1.6-2.3) mg/dL Total Bilirubin 0.6 (0.2-1.3) mg/dL AST 162 H (14-36) U/L ALT 75 H (4-34) U/L Alkaline Phosphatase 131 H (38-126) U/L Creatine Kinase 1074 H* (30-135) U/L Troponin I (0.000-0.034) ng/mL NT-Pro-B Natriuret Pep pg/mL Total Protein 6.4 (6.3-8.2) g/dL Albumin 2.7 L (3.5-5.0) g/dL 05/07/20 05/07/20 05/07/20 Range/Units 08:46 08:46 08:46 WBC (3.8-10.6) k/uL RBC (3.80-5.40) m/uL Hgb (11.4-16.0) gm/dL Hct (34.0-46.0) % MCV (80.0-100.0) fL MCH (25.0-35.0) pg MCHC (31.0-37.0) g/dL RDW (11.5-15.5) % Plt Count (150-450) k/uL Neutrophils % % Lymphocytes % % Monocytes % % Eosinophils % % Basophils % % Neutrophils # (1.3-7.7) k/uL Lymphocytes # (1.0-4.8) k/uL Monocytes # (0-1.0) k/uL Eosinophils # (0-0.7) k/uL Basophils # (0-0.2) k/uL Hypochromasia Anisocytosis PT (9.0-12.0) sec INR (<1.2) APTT (22.0-30.0) sec Sodium (137-145) mmol/L Potassium (3.5-5.1) mmol/L Chloride (98-107) mmol/L Carbon Dioxide (22-30) mmol/L Anion Gap mmol/L BUN (7-17) mg/dL Creatinine (0.52-1.04) mg/dL Est GFR (CKD-EPI)AfAm (>60 ml/min/1.73 sqM) Est GFR (CKD-EPI)NonAf (>60 ml/min/1.73 sqM) Glucose (74-99) mg/dL POC Glucose (mg/dL) (75-99) mg/dL POC Glu Electrician Technician ID Plasma Lactic Acid Juan 2.9 H* (0.7-2.0) mmol/L Calcium (8.4-10.2) mg/dL Magnesium (1.6-2.3) mg/dL Total Bilirubin (0.2-1.3) mg/dL AST (14-36) U/L ALT (4-34) U/L Alkaline Phosphatase (38-126) U/L Creatine Kinase (30-135) U/L Troponin I 0.140 H* (0.000-0.034) ng/mL NT-Pro-B Natriuret Pep 50432 pg/mL Total Protein (6.3-8.2) g/dL Albumin (3.5-5.0) g/dL 05/07/20 Range/Units 08:50 WBC (3.8-10.6) k/uL RBC (3.80-5.40) m/uL Hgb (11.4-16.0) gm/dL Hct (34.0-46.0) % MCV (80.0-100.0) fL MCH (25.0-35.0) pg MCHC (31.0-37.0) g/dL RDW (11.5-15.5) % Plt Count (150-450) k/uL Neutrophils % % Lymphocytes % % Monocytes % % Eosinophils % % Basophils % % Neutrophils # (1.3-7.7) k/uL Lymphocytes # (1.0-4.8) k/uL Monocytes # (0-1.0) k/uL Eosinophils # (0-0.7) k/uL Basophils # (0-0.2) k/uL Hypochromasia Anisocytosis PT (9.0-12.0) sec INR (<1.2) APTT (22.0-30.0) sec Sodium (137-145) mmol/L Potassium (3.5-5.1) mmol/L Chloride (98-107) mmol/L Carbon Dioxide (22-30) mmol/L Anion Gap mmol/L BUN (7-17) mg/dL Creatinine (0.52-1.04) mg/dL Est GFR (CKD-EPI)AfAm (>60 ml/min/1.73 sqM) Est GFR (CKD-EPI)NonAf (>60 ml/min/1.73 sqM) Glucose (74-99) mg/dL POC Glucose (mg/dL) 127 H (75-99) mg/dL POC Glu Electrician Technician ID [facility] Plasma Lactic Acid Juan (0.7-2.0) mmol/L Calcium (8.4-10.2) mg/dL Magnesium (1.6-2.3) mg/dL Total Bilirubin (0.2-1.3) mg/dL AST (14-36) U/L ALT (4-34) U/L Alkaline Phosphatase (38-126) U/L Creatine Kinase (30-135) U/L Troponin I (0.000-0.034) ng/mL NT-Pro-B Natriuret Pep pg/mL Total Protein (6.3-8.2) g/dL Albumin (3.5-5.0) g/dL Critical Care Time Critical Care Time: Yes Total Critical Care Time: 39 Critical Care Time: Critical care time includes initial presentation with history physical labs x- rays discussion with the paramedics upon arrival. Multiple reevaluation of the patient discussion with the admitting physician admission orders. Review of old charting was available. Documentation of the above Disposition Clinical Impression: Acute renal failure, Non-STEMI (non-ST elevated myocardial infarction), Hyper natremia, Rhabdomyolysis, Delirium due to general medical condition, Dehydration Disposition: ADMITTED IP TO THIS [facility] Condition: Serious Referrals: Carrie Thomas MD [Primary Care Provider] - 1-2 days
[2020-05-07 08:59] LABS: Anisocytosis Slight; Basophils % (A) 0 %; Eosinophils # (A) 0.1 k/uL (0-0.7); Eosinophils % (A) 0 %; HCT 39.1 % (34.0-46.0); HGB 11.8 gm/dL (11.4-16.0); Hypochromasia Moderate; Lymphocytes # (A) 0.9 k/uL (1.0-4.8); Lymphocytes % (A) 5 %; MCH 28.7 pg (25.0-35.0); MCHC 30.1 g/dL (31.0-37.0); MCV 95.4 fL (80.0-100.0); Monocytes # (A) 0.8 k/uL (0-1.0); Monocytes % (A) 5 %; Neutrophils # (A) 15.9 k/uL (1.3-7.7); Neutrophils % (A) 89 %; Platelet Count 513 k/uL (150-450); RDW 16.7 % (11.5-15.5); WBC 17.9 k/uL (3.8-10.6)
[2020-05-07 09:09] LABS: INR 1.1 (<1.2); Partial Thromboplastin Time 22.7 sec (22.0-30.0); Prothrombin Time 11.1 sec (9.0-12.0)
[2020-05-07 09:14] LABS: Albumin 2.7 g/dL (3.5-5.0); Calcium 9.2 mg/dL (8.4-10.2); Magnesium 2.2 mg/dL (1.6-2.3); Potassium 5.6 mmol/L (3.5-5.1); Total Bilirubin 0.6 mg/dL (0.2-1.3); Total Protein 6.4 g/dL (6.3-8.2)
--- NOTE | 2020-05-07 09:23 | CT ---
EXAMINATION TYPE: CT brain wo con DATE OF EXAM: 05/07/2020 HISTORY: Altered mental status. CT DLP: 1158.4 mGycm. Automated Exposure Control for Dose Reduction was Utilized. TECHNIQUE: CT scan of the head is performed without contrast. COMPARISON: 02/01/2020 CT brain FINDINGS: There is no acute intracranial hemorrhage, midline shift, or mass effect identified. Diffuse volume l oss. Marked patchy white matter hypodensities likely sequela of chronic microvascular ischemic change . There are redemonstrated areas of encephalomalacia and old lacunar infarcts. Encephalomalacia of th e right frontal lobe (201:44) is new versus 02/01/2020. The ventricles, sulci, and cisterns are promine nt concordant with volume loss. No extra-axial fluid collection. Bones and extracranial soft tissues are intact. The globes are gross ly symmetric. Visualized sinuses and mastoid air cells are clear. IMPRESSION: 1. No acute intracranial hemorrhage, midline shift, or mass effect. 2. Old lacunar infarcts and encephalomalacia.
--- NOTE | 2020-05-07 09:35 | XR ---
EXAMINATION TYPE: XR chest 1V portable DATE OF EXAM: 05/07/2020 CLINICAL HISTORY: Dyspnea. TECHNIQUE: Portable frontal view of the chest. COMPARISON: 02/06/2020 chest radiograph FINDINGS: The cardiomediastinal silhouette is within normal limits for size. Pulmonary vasculature i s normal. There are multifocal hazy airspace opacities, predominantly of the right lung. No pleural e ffusion, or pneumothorax seen. Degenerative changes of the shoulders. IMPRESSION: Multifocal hazy airspace opacities, with primary differential consideration given to Covid 19 viral i nfection.
[2020-05-07] MEDS ORDERED: NALOXONE 0.4 MG/ML 1 ML VIAL IV PRN (11:27)
[2020-05-07] MEDS ORDERED: ACETAMINOPHEN TAB 325 MG TAB PO PRN (11:27)
[2020-05-07] MEDS: SODIUM CHLORIDE 0.9% 1,000 ML IV SCH ×2 (16:04→20:35)
[2020-05-07 16:43] LABS: Glucose,Whole Blood 116 mg/dL (75-99)
[2020-05-07] MEDS: HEPARIN SODIUM,PORCINE 5,000 UNIT/ML 1 ML VIAL SQ SCH ×2 (17:20→23:39)
[2020-05-07] MEDS: ASPIRIN 81 MG PO SCH (17:21)
[2020-05-07] MEDS: CLOPIDOGREL 75 MG TAB PO SCH (17:21)
[2020-05-07] MEDS: METOPROLOL TARTRATE 25 MG TAB PO SCH (17:21)
--- NOTE | 2020-05-07 19:17 | CT ---
EXAMINATION TYPE: CT abdomen pelvis wo con DATE OF EXAM: 05/07/2020 COMPARISON: None HISTORY: abdominal pain CT DLP: 541 mGycm Automated exposure control for dose reduction was used. There is some mild atelectasis at the lung bases. Heart size is normal. There is no pericardial effus ion. Liver spleen pancreas appear normal. Bile ducts are not dilated. Stomach is intact. There is no adrenal mass. Kidneys have normal size. There is no hydronephrosis. There is no evidence of a renal mass. There is minimal fluid around the kidneys. There is no retroperitoneal adenopathy. U reters are not dilated. Abdominal aorta is atheromatous. Appendix is posterior and appears normal. Bl adder distends smoothly. There is no inguinal hernia. There is some wall thickening of the sigmoid colon with multiple diverticula. There are some small ar eas of minimal fat stranding around the sigmoid colon. The lumbar vertebra show normal alignment. There is no compression fracture. Bony pelvis is intact. T he sacroiliac joints are intact. There is mild spurring at the hip joints. IMPRESSION: There is some atelectasis and infiltrate at the lung bases that is new compared to old exam. Mild bilateral perinephric edema of uncertain significance. Unchanged. No renal obstruction. Sigmoid diverticulosis with some subtle changes of mild colitis or diverticulitis of the proximal sig moid colon.
[2020-05-07 19:48] LABS: Calcium 8.4 mg/dL (8.4-10.2); Potassium 4.3 mmol/L (3.5-5.1)
[2020-05-07] MEDS: ATORVASTATIN 40 MG TAB PO SCH (20:37)
--- NOTE | 2020-05-07 22:43 | P.CONS ---
History of Present Illness - Reason for Consult Consult date: 05/07/20 Leukocytosis Requesting physician: Yayo Nino - Chief Complaint Mental status changes x one day - History of Present Illness Patient is a 70 year female with a past medical history significant for CVA also with a history of left lrtde-dvb-[id number] amputation as well as amputation of her finger who was sent from the intermediate to [facility] ER for evaluation of decreased responsiveness, patient also noticed to be in A. fib with RVR artery disease and 140s and hypotension as well as hypoxemia, patient was noticed to have elevated white count of 17.9, as well as elevated lactic acid and elevated creatinine, patient chest x-ray was reported as multifo ashley his air space opacities with concern for Covid 19 infection though mejía PCR came back negative, patient has been admitted to the hospital infectious disease was consulted for further management of antibiotic therapy most of the information has been obtained from review the chart as the patient is currently not available and unable to provide any history she was noticed to have a congested but sound but no cystoscopy did not mention any choking on the food or drinks no vomiting or any diarrhea has been reported Review of Systems Positive points has been mentioned in HPI complete review could not be obtained because of his underlying mental status Past Medical History Past Medical History: COPD, CVA/TIA, Hyperlipidemia, Hypertension, Thyroid Disorder History of Any Multi-Drug Resistant Organisms: None Reported Past Surgical History: Unable to Obtain Additional Past Surgical History / Comment(s): bilateral finger amputations, 02/10/20 LEFT AKA Past Anesthesia/Blood Transfusion Reactions: No Reported Reaction Past Psychological History: Anxiety, Depression Smoking Status: Former smoker Past Alcohol Use History: Unable to Obtain Past Drug Use History: Unable to Obtain - Past Family History Mother Additional Family Medical History / Comment(s): hepatitis. Brother(s) Additional Family Medical History / Comment(s): hepatitis. Medications and Allergies Home Medications Medication Instructions Recorded Confirmed Type Atorvastatin Calcium [Lipitor] 40 mg PO HS@199902/01/20 05/07/20 History Levothyroxine Sodium [Synthroid] 112 mcg PO DAILY@0702/01/20 05/07/20 History Acetaminophen Tab [Tylenol] 325 mg PO Q4HR PRN 05/07/20 05/07/20 History Aspirin 81 mg PO DAILY@1400 05/07/20 05/07/20 History Clopidogrel Bisulfate [Plavix] 75 mg PO DAILY@1400 05/07/20 05/07/20 History Cyanocobalamin [Vitamin B-12] 500 mcg PO DAILY@0600 05/07/20 05/07/20 History Folic Acid 0.4 mg PO DAILY@0600 05/07/20 05/07/20 History Lansoprazole [Prevacid] 15 mg PO DAILY@0700 05/07/20 05/07/20 History Megestrol Acetate 400 mg PO DAILY@0700 05/07/20 05/07/20 History Metoprolol Tartrate [Lopressor] 25 mg PO BID@0700,1600 05/07/20 05/07/20 History Spironolactone [Aldactone] 25 mg PO DAILY@0700 05/07/20 05/07/20 History lisinopriL [Zestril] 5 mg PO DAILY@0600 05/07/20 05/07/20 History Allergies Allergy/AdvReac Type Severity Reaction Status Date / Time No Known Allergies Allergy Verified 05/07/20 09:04 Physical Exam Vitals: Vital Signs Temp Pulse Pulse Resp BP BP Pulse Ox 05/07/20 17:19 104 H 25 H 105/68 95 05/07/20 16:05 104 H 30 H 108/68 95 05/07/20 16:00 104 H 25 H 05/07/20 15:36 98.1 F 102 H 30 H 105/74 95 05/07/20 14:35 97.8 F 81 16 112/66 97 05/07/20 14:00 99 22 88/60 95 05/07/20 13:20 97.8 F 05/07/20 13:00 101 H 24 96/69 97 05/07/20 12:00 100 24 115/77 96 05/07/20 11:30 98 25 H 101/74 97 05/07/20 11:00 94 25 H 101/71 96 05/07/20 10:30 99 25 H 102/71 97 05/07/20 10:00 96 28 H 93/70 97 05/07/20 09:30 105 H 28 H 91/40 95 05/07/20 09:13 105 H 26 H 92/43 95 05/07/20 08:50 111 H 25 H 83/43 94 L 05/07/20 08:36 98.1 F 108 H 15 83/43 93 L Intake and Output 05/07/20 05/07/20 05/07/20 06:59 14:59 22:59 Other: Weight 58.967 kg 58.967 kg GENERAL DESCRIPTION: An elderly female lying in bed, no distress. No tachypnea or accessory muscle of respiration use. HEENT: Shows Pallor , no scleral icterus. Oral mucous membrane is dry. No pharyngeal erythema or thrush NECK: Trachea central, no thyromegaly. LUNGS: Unlabored breathing. Decreased present at the base. No wheeze or crackle. HEART: S1, S2, regular rate and rhythm. No loud murmur ABDOMEN: Soft, no tenderness , guarding or rigidity, no organomegaly EXTREMITIES: No edema of feet. Left AKA site looks clean no cellulitis SKIN: No rash, no masses palpable. NEUROLOGICAL: The patient is lethargic and nonverbal orientation could not be determined. Results CBC & Chem 7: 05/07/20 08:46 05/07/20 19:08 Labs: Abnormal Lab Results - Last 24 Hours (Table) 05/07/20 05/07/20 05/07/20 Range/Units 08:46 08:46 08:46 WBC 17.9 H (3.8-10.6) k/uL MCHC 30.1 L (31.0-37.0) g/dL RDW 16.7 H (11.5-15.5) % Plt Count 513 H (150-450) k/uL Neutrophils # 15.9 H (1.3-7.7) k/uL Lymphocytes # 0.9 L (1.0-4.8) k/uL Sodium 150 H (137-145) mmol/L Potassium 5.6 H (3.5-5.1) mmol/L Chloride 120 H (98-107) mmol/L Carbon Dioxide 18 L (22-30) mmol/L BUN 84 H (7-17) mg/dL Creatinine 3.03 H (0.52-1.04) mg/dL Glucose 127 H (74-99) mg/dL POC Glucose (mg/dL) (75-99) mg/dL Plasma Lactic Acid Juan (0.7-2.0) mmol/L AST 162 H (14-36) U/L ALT 75 H (4-34) U/L Alkaline Phosphatase 131 H (38-126) U/L Creatine Kinase 1074 H* (30-135) U/L Troponin I 0.140 H* (0.000-0.034) ng/mL Albumin 2.7 L (3.5-5.0) g/dL 05/07/20 05/07/20 05/07/20 Range/Units 08:46 08:50 11:50 WBC (3.8-10.6) k/uL MCHC (31.0-37.0) g/dL RDW (11.5-15.5) % Plt Count (150-450) k/uL Neutrophils # (1.3-7.7) k/uL Lymphocytes # (1.0-4.8) k/uL Sodium (137-145) mmol/L Potassium (3.5-5.1) mmol/L Chloride (98-107) mmol/L Carbon Dioxide (22-30) mmol/L BUN (7-17) mg/dL Creatinine (0.52-1.04) mg/dL Glucose (74-99) mg/dL POC Glucose (mg/dL) 127 H (75-99) mg/dL Plasma Lactic Acid Juan 2.9 H* 2.5 H* (0.7-2.0) mmol/L AST (14-36) U/L ALT (4-34) U/L Alkaline Phosphatase (38-126) U/L Creatine Kinase (30-135) U/L Troponin I (0.000-0.034) ng/mL Albumin (3.5-5.0) g/dL 05/07/20 05/07/20 05/07/20 Range/Units 14:46 16:42 19:08 WBC (3.8-10.6) k/uL MCHC (31.0-37.0) g/dL RDW (11.5-15.5) % Plt Count (150-450) k/uL Neutrophils # (1.3-7.7) k/uL Lymphocytes # (1.0-4.8) k/uL Sodium 154 H (137-145) mmol/L Potassium (3.5-5.1) mmol/L Chloride 127 H (98-107) mmol/L Carbon Dioxide 17 L (22-30) mmol/L BUN 75 H (7-17) mg/dL Creatinine 2.46 H (0.52-1.04) mg/dL Glucose 105 H (74-99) mg/dL POC Glucose (mg/dL) 116 H (75-99) mg/dL Plasma Lactic Acid Juan 2.3 H* (0.7-2.0) mmol/L AST (14-36) U/L ALT (4-34) U/L Alkaline Phosphatase (38-126) U/L Creatine Kinase (30-135) U/L Troponin I (0.000-0.034) ng/mL Albumin (3.5-5.0) g/dL Assessment and Plan Assessment: 1- patient presented to the hospital with decreased level of consciousness in this patient who noticed to have elevated white count which is likely multif actorial With concern for possible pneumonia versus UTI in this patient who is a intermediate resident and will need to cover for resistant gram-negative pathogen (1) Leukocytosis Current Visit: No Status: Acute Code(s): D72.829 - ELEVATED WHITE BLOOD CELL COUNT, UNSPECIFIED SNOMED Code(s): 320092634 Plan: 1- blood cultures 2 and will check a urine culture 2-empirically add Zosyn 3.375 g every 8 hours 3-gentle IV fluid We will follow on clinical condition and cultures to further adjust medication if needed Thank you for this consultation will follow this patient with you Time with Patient: Greater than 30
--- NOTE | 2020-05-07 23:00 | P.HPIM ---
History of Present Illness H&P Date: 05/07/20 Chief Complaint: Altered mental status changes Ms. Olvera is a 70-year-old female with a past medical history of CVA, COPD, hypertension, hyperlipidemia, left AKA, bilateral finger amputations brought in from the long-term with a chief complaint of decreased responsiveness. Patient is not able to provide any history and just mumbles. So most of the history is obtained from the ED notes and the nursing staff report. In the ER patient was found to have atrial fibrillation with rapid ventricular rate and was hypotensive. They gave her IV fluids and her blood pressure improved and tachycardia improved. Patient has been tested negative for Covid at the long-term couple of days back. As per the ED notes, the patient's daughter requests that she would be a NO CODE. In the ER, patient's vitals improved slightly after the IV fluids. Patient had a CAT scan of her head in the ER, negative for any acute intracranial hemorrhage, old lacunar infarcts and encephalomalacia chest x-ray showing hazy airspace opacities, to consider COVID-19 viral infection. EKG showing accelerated junctional rhythm. On reviewing the patient's labs her lactic acid was 2.3 decreased to 1.8. On reviewing her labs her sodium was 150,5.6, chloride 120, bicarb 18, BUN 84, creatinine 3.03. Troponin 0 0.140. Review of Systems Could not be obtained as the patient could not talk, she just mumbles and is confused. Past Medical History Past Medical History: COPD, CVA/TIA, Hyperlipidemia, Hypertension, Thyroid Disorder History of Any Multi-Drug Resistant Organisms: None Reported Past Surgical History: Unable to Obtain Additional Past Surgical History / Comment(s): bilateral finger amputations, 02/10/20 LEFT AKA Past Anesthesia/Blood Transfusion Reactions: No Reported Reaction Past Psychological History: Anxiety, Depression Smoking Status: Former smoker Past Alcohol Use History: Unable to Obtain Past Drug Use History: Unable to Obtain - Past Family History Mother Additional Family Medical History / Comment(s): hepatitis. Brother(s) Additional Family Medical History / Comment(s): hepatitis. Medications and Allergies Home Medications Medication Instructions Recorded Confirmed Type Atorvastatin Calcium [Lipitor] 40 mg PO HS@199902/01/20 05/07/20 History Levothyroxine Sodium [Synthroid] 112 mcg PO DAILY@0700 02/01/20 05/07/20 History Acetaminophen Tab [Tylenol] 325 mg PO Q4HR PRN 05/07/20 05/07/20 History Aspirin 81 mg PO DAILY@1400 05/07/20 05/07/20 History Clopidogrel Bisulfate [Plavix] 75 mg PO DAILY@1400 05/07/20 05/07/20 History Cyanocobalamin [Vitamin B-12] 500 mcg PO DAILY@0600 05/07/20 05/07/20 History Folic Acid 0.4 mg PO DAILY@0600 05/07/20 05/07/20 History Lansoprazole [Prevacid] 15 mg PO DAILY@0700 05/07/20 05/07/20 History Megestrol Acetate 400 mg PO DAILY@0700 05/07/20 05/07/20 History Metoprolol Tartrate [Lopressor] 25 mg PO BID@0700,1600 05/07/20 05/07/20 History Spironolactone [Aldactone] 25 mg PO DAILY@0700 05/07/20 05/07/20 History lisinopriL [Zestril] 5 mg PO DAILY@0600 05/07/20 05/07/20 History Allergies Allergy/AdvReac Type Severity Reaction Status Date / Time No Known Allergies Allergy Verified 05/07/20 09:04 Physical Exam Vitals: Vital Signs Temp Pulse Pulse Resp BP BP Pulse Ox 05/07/20 17:19 104 H 25 H 105/68 95 05/07/20 16:05 104 H 30 H 108/68 95 05/07/20 15:36 98.1 F 102 H 30 H 105/74 95 05/07/20 14:35 97.8 F 81 16 112/66 97 05/07/20 14:00 99 22 88/60 95 05/07/20 13:20 97.8 F 05/07/20 13:00 101 H 24 96/69 97 05/07/20 12:00 100 24 115/77 96 05/07/20 11:30 98 25 H 101/74 97 05/07/20 11:00 94 25 H 101/71 96 05/07/20 10:30 99 25 H 102/71 97 05/07/20 10:00 96 28 H 93/70 97 05/07/20 09:30 105 H 28 H 91/40 95 05/07/20 09:13 105 H 26 H 92/43 95 05/07/20 08:50 111 H 25 H 83/43 94 L 05/07/20 08:36 98.1 F 108 H 15 83/43 93 L Intake and Output 05/07/20 05/07/20 05/07/20 06:59 14:59 22:59 Other: Weight 58.967 kg 58.967 kg PHYSICAL EXAM GEN. APPEARANCE: awake, curle up in bed and moaning, no respiratory distress. HEAD EXAM: atraumatic, normocephalic, normal inspection EYE EXAM: No pallor , no icterus ENT EXAM: mucous membranes dry RESPIRATORY EXAM: Bilateral BS heard and diminished at the lower lung bases CARDIOVASCULAR EXAM: Tachycardia GI/ABDOMINAL EXAM: pt will not let me touch her abdomen, she will push my hands off. + tenderness in all quadrants Bowel sounds - hypoactive. EXTREMITIES EXAM: Left AKA NEUROLOGICAL EXAM: awake, not oriented, moving all 4 extremities. Results CBC & Chem 7: 05/07/20 08:46 05/07/20 19:08 Labs: Abnormal Lab Results - Last 24 Hours (Table) 05/07/20 05/07/20 05/07/20 Range/Units 08:46 08:46 08:46 WBC 17.9 H (3.8-10.6) k/uL MCHC 30.1 L (31.0-37.0) g/dL RDW 16.7 H (11.5-15.5) % Plt Count 513 H (150-450) k/uL Neutrophils # 15.9 H (1.3-7.7) k/uL Lymphocytes # 0.9 L (1.0-4.8) k/uL Sodium 150 H (137-145) mmol/L Potassium 5.6 H (3.5-5.1) mmol/L Chloride 120 H (98-107) mmol/L Carbon Dioxide 18 L (22-30) mmol/L BUN 84 H (7-17) mg/dL Creatinine 3.03 H (0.52-1.04) mg/dL Glucose 127 H (74-99) mg/dL POC Glucose (mg/dL) (75-99) mg/dL Plasma Lactic Acid Juan (0.7-2.0) mmol/L AST 162 H (14-36) U/L ALT 75 H (4-34) U/L Alkaline Phosphatase 131 H (38-126) U/L Creatine Kinase 1074 H* (30-135) U/L Troponin I 0.140 H* (0.000-0.034) ng/mL Albumin 2.7 L (3.5-5.0) g/dL 05/07/20 05/07/20 05/07/20 Range/Units 08:46 08:50 11:50 WBC (3.8-10.6) k/uL MCHC (31.0-37.0) g/dL RDW (11.5-15.5) % Plt Count (150-450) k/uL Neutrophils # (1.3-7.7) k/uL Lymphocytes # (1.0-4.8) k/uL Sodium (137-145) mmol/L Potassium (3.5-5.1) mmol/L Chloride (98-107) mmol/L Carbon Dioxide (22-30) mmol/L BUN (7-17) mg/dL Creatinine (0.52-1.04) mg/dL Glucose (74-99) mg/dL POC Glucose (mg/dL) 127 H (75-99) mg/dL Plasma Lactic Acid Juan 2.9 H* 2.5 H* (0.7-2.0) mmol/L AST (14-36) U/L ALT (4-34) U/L Alkaline Phosphatase (38-126) U/L Creatine Kinase (30-135) U/L Troponin I (0.000-0.034) ng/mL Albumin (3.5-5.0) g/dL 05/07/20 05/07/20 Range/Units 14:46 16:42 WBC (3.8-10.6) k/uL MCHC (31.0-37.0) g/dL RDW (11.5-15.5) % Plt Count (150-450) k/uL Neutrophils # (1.3-7.7) k/uL Lymphocytes # (1.0-4.8) k/uL Sodium (137-145) mmol/L Potassium (3.5-5.1) mmol/L Chloride (98-107) mmol/L Carbon Dioxide (22-30) mmol/L BUN (7-17) mg/dL Creatinine (0.52-1.04) mg/dL Glucose (74-99) mg/dL POC Glucose (mg/dL) 116 H (75-99) mg/dL Plasma Lactic Acid Juan 2.3 H* (0.7-2.0) mmol/L AST (14-36) U/L ALT (4-34) U/L Alkaline Phosphatase (38-126) U/L Creatine Kinase (30-135) U/L Troponin I (0.000-0.034) ng/mL Albumin (3.5-5.0) g/dL Thrombosis Risk Factor Assmnt - Choose All That Apply Any of the Below Risk Factors Present?: Yes Each Factor Represents 1 point: Abnormal pulmonary function (COPD), Medical pt on bed rest, Sepsis (< 1month) Other Risk Factors: Yes Each Risk Factor Represents 2 Points: Age 61-74 years, Patient confined to bed Other congenital or acquired thrombophilia - If yes, enter type in comment: No Thrombosis Risk Factor Assessment Total Risk Factor Score: 7 Thrombosis Risk Factor Assessment Level: High Risk Assessment and Plan Assessment: ASSESSMENT Acute metabolic encephalopathy Leukocytosis Hypernatremia Hyperkalemia Lactic acidosis Acute kidney injury Elevated troponins Elevated CPK level Moderate protein calorie malnutrition Elevated BNP History of COPD History of stroke Hypertension Hyperlipidemia Thyroid disorders Bilateral finger amputations Left [id number] amputation Chronic debility PLAN: Patient has altered mental status which is probably secondary to metabolic abnormalities. Patient is hyponatremic and having PENNY, will continue with IV fluids. Will obtain nephrology consult. As the patient has diffuse abdominal tenderness, will get a CAT scan of the abdomen and pelvis, due to her PENNY it will be without contrast. As the patient has lactic acidosis, will also consult infectious disease. Overall prognosis is very poor. Patient is a no code. Further recommendations to follow depending on the progress of the patient.
[2020-05-07] MEDS: PIPERACILLIN-TAZOBACTAM 3.375 GM in SODIUM CHLORIDE 0.9% 100 ML IVPB SCH (23:39)
[2020-05-08] MEDS ORDERED: lisinopriL 5 MG TAB PO SCH (06:00)
[2020-05-08] MEDS: SPIRONOLACTONE 25 MG TAB PO SCH (06:02)
[2020-05-08] MEDS: METOPROLOL TARTRATE 25 MG TAB PO SCH ×2 (06:02→17:47)
[2020-05-08] MEDS: CYANOCOBALAMIN 500 MCG TAB PO SCH (06:03)
[2020-05-08] MEDS: FOLIC ACID 1 MG TAB PO SCH (06:03)
[2020-05-08] MEDS: LEVOTHYROXINE 112 MCG TAB PO SCH (06:03)
[2020-05-08] MEDS: MEGESTROL 400 MG/10 ML CUP PO SCH (06:06)
[2020-05-08] MEDS ORDERED: LANSOPRAZOLE 15 MG PO SCH (07:00)
[2020-05-08 08:08] LABS: Anisocytosis Slight; Basophils % (A) 0 %; Eosinophils % (A) 0 %; HCT 38.3 % (34.0-46.0); Hypochromasia Marked; Lymphocytes # (A) 0.7 k/uL (1.0-4.8); Lymphocytes % (A) 4 %; MCH 28.2 pg (25.0-35.0); MCHC 28.7 g/dL (31.0-37.0); Mean Platelet Volume 8.5; Monocytes # (A) 0.7 k/uL (0-1.0); Monocytes % (A) 4 %; Neutrophils # (A) 16.6 k/uL (1.3-7.7); Neutrophils % (A) 91 %; Platelet Count 439 k/uL (150-450); RBC 3.91 m/uL (3.80-5.40); RDW 16.7 % (11.5-15.5); WBC 18.2 k/uL (3.8-10.6)
[2020-05-08 08:21] LABS: Calcium 8.7 mg/dL (8.4-10.2); Potassium 4.4 mmol/L (3.5-5.1)
[2020-05-08 08:34] LABS: C Reactive Protein 169.1 mg/L (<10.0)
[2020-05-08] MEDS: DEXTROSE 5% IN WATER 1,000 ML IV SCH ×2 (09:14→21:18)
[2020-05-08] MEDS: HEPARIN SODIUM,PORCINE 5,000 UNIT/ML 1 ML VIAL SQ SCH ×3 (09:15→23:35)
[2020-05-08] MEDS: PANTOPRAZOLE 40 MG/10 ML VIAL IV SCH (09:15)
[2020-05-08] MEDS: SODIUM CHLORIDE 0.9% 1,000 ML IV SCH (09:16)
--- NOTE | 2020-05-08 11:43 | P.CRDCN ---
History of Present Illness Consult date: 05/08/20 Consult reason: non-Q-wave NE History of present illness: History of present illness: This is 70-year-old female patient with a past medical history significant for hypertension, dyslipidemia, stroke, left AKA, bilateral finger amputations. Lynette mercedes was brought in from her halfway due to change in mental status. She was found to be in atrial fibrillation with RVR and hypotensive in the emergency center. CAT scan of the brain was negative for acute intracranial hemorrhage. Chest x-ray revealed hazy airspace opacities consider Covid per covert testing in the halfway was negative. EKG was accelerated junctional rhythm. Lactic acid 2.3, sodium 150, potassium 5.6, bicarb 18, BUN 84 and creatinine 3.03. Troponin 0.140. CK 1074. C-reactive protein 169.1. Covid testing negative. Patient is unresponsive and unable to give any history. Family is looking at hospice care. Review Of Systems: Unable to obtain due to patient's mental status Physical examination: Gen: This is a frail 70-year-old female. She opens her eyes to verbal stimuli. VS: Afebrile, heart rate 101, respiratory rate 30, pulse ox 95% on room air, blood pressure 137/71 HEENT: Head is atraumatic, normocephalic. Pupils equal, round. Sclerae is anicteric. NECK: Supple. No JVD. No lymphadenopathy. No thyromegaly. LUNGS: Diminished bilaterally No intercostal retractions. HEART: Regular rate and rhythm. No murmur. ABDOMEN: Soft. Bowel sounds are present. No masses. No tenderness. EXTREMITIES: No pedal edema. No calf tenderness. NEUROLOGICAL: Patient will open eyes to verbal stimuli. Assessment: Acute metabolic encephalopathy Electrolyte abnormalities Acute kidney injury Elevated troponin secondary to acute kidney injury Hypertension Dyslipidemia History of stroke Plan: Continue aspirin, Lipitor, Plavix, lisinopril and Lopressor and Aldactone Further recommendations to follow based upon clinical course At this time, it appears that family is planning on pursuing hospice care and echocardiogram will be discontinued Cardiology will follow on an as needed basis, please reconsult for new concerns. Thank you kindly for this consultation. Nurse practitioner note has been reviewed, I agree with documented findings and plan of care. Patient was seen and examined. Past Medical History Past Medical History: COPD, CVA/TIA, Hyperlipidemia, Hypertension, Thyroid Disorder History of Any Multi-Drug Resistant Organisms: None Reported Past Surgical History: Unable to Obtain Additional Past Surgical History / Comment(s): bilateral finger amputations, 02/10/20 LEFT AKA Past Anesthesia/Blood Transfusion Reactions: No Reported Reaction Past Psychological History: Anxiety, Depression Smoking Status: Former smoker Past Alcohol Use History: Unable to Obtain Past Drug Use History: Unable to Obtain - Past Family History Mother Additional Family Medical History / Comment(s): hepatitis. Brother(s) Additional Family Medical History / Comment(s): hepatitis. Medications and Allergies Home Medications Medication Instructions Recorded Confirmed Type Atorvastatin Calcium [Lipitor] 40 mg PO HS@199902/01/20 05/07/20 History Levothyroxine Sodium [Synthroid] 112 mcg PO DAILY@0702/01/20 05/07/20 History Acetaminophen Tab [Tylenol] 325 mg PO Q4HR PRN 05/07/20 05/07/20 History Aspirin 81 mg PO DAILY@1400 05/07/20 05/07/20 History Clopidogrel Bisulfate [Plavix] 75 mg PO DAILY@1400 05/07/20 05/07/20 History Cyanocobalamin [Vitamin B-12] 500 mcg PO DAILY@0600 05/07/20 05/07/20 History Folic Acid 0.4 mg PO DAILY@0600 05/07/20 05/07/20 History Lansoprazole [Prevacid] 15 mg PO DAILY@0700 05/07/20 05/07/20 History Megestrol Acetate 400 mg PO DAILY@0700 05/07/20 05/07/20 History Metoprolol Tartrate [Lopressor] 25 mg PO BID@0700,1600 05/07/20 05/07/20 History Spironolactone [Aldactone] 25 mg PO DAILY@0700 05/07/20 05/07/20 History lisinopriL [Zestril] 5 mg PO DAILY@0600 05/07/20 05/07/20 History Allergies Allergy/AdvReac Type Severity Reaction Status Date / Time No Known Allergies Allergy Verified 05/07/20 09:04 Physical Exam Vitals: Vital Signs Temp Pulse Pulse Resp BP BP Pulse Ox 05/08/20 07:40 97.7 F 101 H 30 H 137/71 95 05/08/20 04:00 97.5 F L 65 24 90/65 92 L 05/08/20 00:00 97.6 F 104 H 30 H 96/62 91 L 05/07/20 20:00 97.5 F L 104 H 25 H 103/56 97 05/07/20 17:19 104 H 25 H 105/68 95 05/07/20 16:05 104 H 30 H 108/68 95 05/07/20 16:00 104 H 25 H 05/07/20 15:36 98.1 F 102 H 30 H 105/74 95 05/07/20 14:35 97.8 F 81 16 112/66 97 05/07/20 14:00 99 22 88/60 95 05/07/20 13:20 97.8 F 05/07/20 13:00 101 H 24 96/69 97 05/07/20 12:00 100 24 115/77 96 05/07/20 11:30 98 25 H 101/74 97 05/07/20 11:00 94 25 H 101/71 96 05/07/20 10:30 99 25 H 102/71 97 05/07/20 10:00 96 28 H 93/70 97 Intake and Output 05/07/20 05/08/20 05/08/20 22:59 06:59 14:59 Intake Total 0 Balance 0 Intake: Oral 0 Other: Voiding Method Diaper Diaper # Voids 1 2 # Bowel Movements 1 Weight 58.967 kg 59.5 kg Results 05/08/20 06:53 05/08/20 06:53 Cardiac Enzymes 05/07/20 05/07/20 Range/Units 08:46 08:46 AST 162 H (14-36) U/L Troponin I 0.140 H* (0.000-0.034) ng/mL CBC 05/08/20 Range/Units 06:53 WBC 18.2 H (3.8-10.6) k/uL RBC 3.91 (3.80-5.40) m/uL Hgb 11.0 L (11.4-16.0) gm/dL Hct 38.3 (34.0-46.0) % Plt Count 439 (150-450) k/uL Comprehensive Metabolic Panel 05/07/20 05/07/20 05/08/20 Range/Units 08:46 19:08 06:53 Sodium 150 H 154 H 156 H (137-145) mmol/L Potassium 5.6 H 4.3 4.4 (3.5-5.1) mmol/L Chloride 120 H 127 H 131 H* (98-107) mmol/L Carbon Dioxide 18 L 17 L 16 L (22-30) mmol/L BUN 84 H 75 H 66 H (7-17) mg/dL Creatinine 3.03 H 2.46 H 1.87 H (0.52-1.04) mg/dL Glucose 127 H 105 H 85 (74-99) mg/dL Calcium 9.2 8.4 8.7 (8.4-10.2) mg/dL AST 162 H (14-36) U/L ALT 75 H (4-34) U/L Alkaline Phosphatase 131 H (38-126) U/L Total Protein 6.4 (6.3-8.2) g/dL Albumin 2.7 L (3.5-5.0) g/dL Current Medications Generic Name Dose Route Start Last Admin Trade Name Freq PRN Reason Stop Dose Admin Acetaminophen 650 mg 05/07/20 11:27 Acetaminophen Tab 325 Mg Tab PO Q6HR PRN Mild Pain or Fever > 100.5 Aspirin 81 mg 05/07/20 14:00 05/07/20 17:21 Aspirin 81 Mg PO Not Given DAILY@1400 [facility] Atorvastatin Calcium 40 mg 05/07/20 20:00 05/07/20 20:37 Atorvastatin 40 Mg Tab PO Not Given HS@2000 [facility] Clopidogrel Bisulfate 75 mg 05/07/20 14:00 05/07/20 17:21 Clopidogrel 75 Mg Tab PO Not Given DAILY@1400 [facility] Cyanocobalamin 500 mcg 05/08/20 06:00 05/08/20 06:03 Cyanocobalamin 500 Mcg Tab PO 500 mcg DAILY@0600 [facility] Administration Folic Acid 0.5 mg 05/08/20 06:00 05/08/20 06:03 Folic Acid 1 Mg Tab PO 0.5 mg DAILY@0600 [facility] Administration Heparin Sodium (Porcine) 5,000 unit 05/07/20 16:00 05/08/20 09:15 Heparin Sodium,Porcine 5,000 Unit/Ml 1 Ml Vial SQ 5,000 unit Q8HR [facility] Administration Piperacillin Sod/Tazobactam 100 mls @ 25 mls/hr 05/08/20 00:00 05/07/20 23:39 Sod 3.375 gm/ Sodium Chloride IVPB 25 mls/hr Q12H [facility] Administration Dextrose/Water 1,000 mls @ 70 mls/hr 05/08/20 09:00 05/08/20 09:14 Dextrose 5%-Water Iv Soln IV 70 mls/hr .[id number] [facility] Administration Levothyroxine Sodium 112 mcg 05/08/20 07:00 05/08/20 06:03 Levothyroxine 112 Mcg Tab PO 112 mcg DAILY@0700 [facility] Administration Lisinopril 5 mg 05/08/20 06:00 05/08/20 06:03 Lisinopril 5 Mg Tab PO 5 mg DAILY@0600 [facility] Administration Megestrol Acetate 400 mg 05/08/20 07:00 05/08/20 06:06 Megestrol 400 Mg/10 Ml Cup PO 400 mg DAILY@0700 [facility] Administration Metoprolol Tartrate 25 mg 05/07/20 16:00 05/08/20 06:02 Metoprolol Tartrate 25 Mg Tab PO Not Given BID@0700,1600 [facility] Naloxone HCl 0.2 mg 05/07/20 11:27 Naloxone 0.4 Mg/Ml 1 Ml Vial IV Q2M PRN Opioid Reversal Pantoprazole Sodium 40 mg 05/08/20 09:00 05/08/20 09:15 Pantoprazole 40 Mg/10 Ml Vial IV 40 mg DAILY [facility] Administration Spironolactone 25 mg 05/08/20 07:00 05/08/20 06:02 Spironolactone 25 Mg Tab PO Not Given DAILY@0700 [facility] Intake and Output 05/07/20 05/08/20 05/08/20 22:59 06:59 14:59 Intake Total 0 Balance 0 Intake: Oral 0 Other: Voiding Method Diaper Diaper # Voids 1 2 # Bowel Movements 1 Weight 58.967 kg 59.5 kg 05/08/20 06:53 05/08/20 06:53
[2020-05-08] MEDS: PIPERACILLIN-TAZOBACTAM 3.375 GM in SODIUM CHLORIDE 0.9% 100 ML IVPB SCH ×2 (12:24→23:35)
[2020-05-08] MEDS: ASPIRIN 81 MG PO SCH (12:28)
[2020-05-08] MEDS: CLOPIDOGREL 75 MG TAB PO SCH (12:28)
--- NOTE | 2020-05-08 15:38 | CONS ---
CONSULTATION REASON FOR CONSULT: Renal failure and hypernatremia. HISTORY OF PRESENT ILLNESS: Patient is a 70-year-old female with a history of dementia, COPD, CVA, hypertension, hyperlipidemia, who was admitted to the hospital with worsening mentation and decreased responsiveness. History is obtained from chart review. The patient's initial CT scan of the head has been negative for any acute event. She was noted to have a serum sodium of 150 on initial admission and it is up to 156 now. The patient's blood pressure has been low with systolic in the 90s and 105 mmHg. She has received normal saline boluses and currently maintained on normal saline as well. Serum creatinine was 3.0, it is currently down to 1.87. HOME MEDICATIONS: Included Zestril and spironolactone. I do not see any other diuretics. Currently patient is incontinent and she has been voiding. PAST MEDICAL HISTORY: Significant for CVA, hypertension, hyperlipidemia, COPD, TIA, hypothyroidism. PAST SURGICAL HISTORY: Bilateral finger amputations on both hands, left AKA. SOCIAL HISTORY: Patient is a former smoker. No history of drug abuse or alcohol abuse. MEDICATIONS: Medications prior to admission include Lipitor, Synthroid, Tylenol, aspirin, Plavix, vitamin B12, folic acid, Prevacid, Lopressor, Aldactone, Zestril. ALLERGIES: None. REVIEW OF SYSTEMS: As per HPI. Other systems negative. EXAMINATION: Patient is comfortable, awake, not in any acute distress. Alert, oriented x3. Blood pressure is 137/71, heart rate 101 per minute, she is afebrile. Examination of the heart S1, S2. Examination of the lungs, bilateral breath sounds are heard. Abdomen is soft, nontender. Examination of lower extremities shows left AKA and bilateral finger amputations both hands. The patient is moving her extremities although she is not able to communicate much. LAB: Show sodium 156, potassium 4.4, chloride 131, CO2 is 16, BUN 66, serum creatinine 1.87, hemoglobin 11.0 g/dL. ASSESSMENT: 1. Acute kidney injury, acute tubular necrosis secondary to hypotension as well as an element of hypovolemia and volume depletion, currently maintained on IV fluids. Renal function has improved. 2. Hypernatremia associated with free water deficit. I will change IV fluids to D5W since serum sodium has been increasing and mentation has been worsening. 3. Metabolic acidosis associated with renal failure and IV fluids. I will add oral sodium bicarb and we can switch to IV bicarb depending on the repeat sodium later on tonight. 4. Lactic acidosis secondary to hypotension. 5. History of cerebrovascular accident and transient ischemic attack. PLAN: Switch IV fluids to D5W, continue to monitor urine output, hold off on antihypertensive medications, repeat sodium this evening, DC the Zestril and repeat labs in a.m. Thank you for this consultation. We will continue to follow the patient with you during her hospitalization. MMODL / IJN: [id number] /
[2020-05-08] MEDS: ATORVASTATIN 40 MG TAB PO SCH (21:18)
--- NOTE | 2020-05-09 00:41 | P.PN ---
Subjective Progress Note Date: 05/08/20 Principal diagnosis: Encephalopathy raymond Olvera is a 70-year-old female with a past medical history of CVA, COPD, hypertension, hyperlipidemia, left AKA, bilateral finger amputations brought in from the custodial with a chief complaint of decreased responsiveness. Patient is not able to provide any history and just mumbles. So most of the history is obtained from the ED notes and the nursing staff report. In the ER patient was found to have atrial fibrillation with rapid ventricular rate and was hypotensive. They gave her IV fluids and her blood pressure improved and tachycardia improved. Patient has been tested negative for Covid at the custodial couple of days back. As per the ED notes, the patient's daughter requests that she would be a NO CODE. In the ER, patient's vitals improved slightly after the IV fluids. Patient had a CAT scan of her head in the ER, negative for any acute intracranial hemorrhage, old lacunar infarcts and encephalomalacia chest x-ray showing hazy airspace opacities, to consider COVID-19 viral infection. EKG showing accelerated junctional rhythm. On reviewing the patient's labs her lactic acid was 2.3 decreased to 1.8. On reviewing her labs her sodium was 150,5.6, chloride 120, bicarb 18, BUN 84, creatinine 3.03. Troponin 0 0.140. On 05/08/2020 -patient is lying in bed appears to be in no acute distress. She appears to be better than yesterday. As per nursing staff report the patient has very poor oral intake. Review of systems could not be done as the patient does not communicate. Patient vitals stable. Labs from this morning does show sodium of 123, potassium four 1.87 and BUN of 66 Active Medications Acetaminophen (Acetaminophen Tab 325 Mg Tab) 650 mg PO Q6HR PRN PRN Reason: Mild Pain or Fever > 100.5 Aspirin (Aspirin 81 Mg) 81 mg PO DAILY@1400 [facility] Last Admin: 05/08/20 12:28 Dose: Not Given Documented by: Atorvastatin Calcium (Atorvastatin 40 Mg Tab) 40 mg PO HS@2000 [facility] Last Admin: 05/08/20 21:18 Dose: 40 mg Documented by: Clopidogrel Bisulfate (Clopidogrel 75 Mg Tab) 75 mg PO DAILY@1400 [facility] Last Admin: 05/08/20 12:28 Dose: Not Given Documented by: Cyanocobalamin (Cyanocobalamin 500 Mcg Tab) 500 mcg PO DAILY@0600 [facility] Last Admin: 05/08/20 06:03 Dose: 500 mcg Documented by: Folic Acid (Folic Acid 1 Mg Tab) 0.5 mg PO DAILY@0600 [facility] Last Admin: 05/08/20 06:03 Dose: 0.5 mg Documented by: Heparin Sodium (Porcine) (Heparin Sodium,Porcine 5,000 Unit/Ml 1 Ml Vial) 5,000 unit SQ Q8HR [facility] Last Admin: 05/08/20 23:35 Dose: 5,000 unit Documented by: Piperacillin Sod/Tazobactam (Sod 3.375 gm/ Sodium Chloride) 100 mls @ 25 mls/hr IVPB Q12H [facility] Last Admin: 05/08/20 23:35 Dose: 25 mls/hr Documented by: Dextrose/Water (Dextrose 5%-Water Iv Soln) 1,000 mls @ 100 mls/hr IV .Q10H [facility] Last Admin: 05/08/20 21:18 Dose: 100 mls/hr Documented by: Levothyroxine Sodium (Levothyroxine 112 Mcg Tab) 112 mcg PO DAILY@0700 [facility] Last Admin: 05/08/20 06:03 Dose: 112 mcg Documented by: Megestrol Acetate (Megestrol 400 Mg/10 Ml Cup) 400 mg PO DAILY@0700 [facility] Last Admin: 05/08/20 06:06 Dose: 400 mg Documented by: Metoprolol Tartrate (Metoprolol Tartrate 25 Mg Tab) 25 mg PO BID@0700,1600 [facility] Last Admin: 05/08/20 17:47 Dose: Not Given Documented by: Naloxone HCl (Naloxone 0.4 Mg/Ml 1 Ml Vial) 0.2 mg IV Q2M PRN PRN Reason: Opioid Reversal Pantoprazole Sodium (Pantoprazole 40 Mg/10 Ml Vial) 40 mg IV DAILY [facility] Last Admin: 05/08/20 09:15 Dose: 40 mg Documented by: Spironolactone (Spironolactone 25 Mg Tab) 25 mg PO DAILY@0700 [facility] Last Admin: 05/08/20 06:02 Dose: Not Given Documented by: Objective - Vital Signs Vital signs: Vital Signs Temp 97.7 F 05/08/20 07:40 Pulse 105 H 05/08/20 11:00 Resp 22 05/08/20 11:00 BP 141/76 11/08/20 11:00 Pulse Ox 95 05/08/20 11:00 Intake & Output 05/07/20 05/08/20 05/08/20 18:59 06:59 18:59 Intake Total 0 660 Balance 0 660 Weight 58.967 kg 59.5 kg Intake: Intake, IV Titration 660 Amount Dextrose 5% in Water 1, 560 000 ml @ 70 mls/hr IV . [id number] [facility] Rx#:[id number] Piperacillin-Tazobactam 3 100 .375 gm In Sodium Chloride 0.9% 100 ml @ 25 mls/hr IVPB Q12H [facility] Rx# :[id number] Oral 0 0 Other: Voiding Method Diaper Diaper # Voids 2 2 # Bowel Movements 1 - Exam PHYSICAL EXAM GEN. APPEARANCE: awake, curle up in bed and moaning, no respiratory distress. HEAD EXAM: atraumatic, normocephalic, normal inspection EYE EXAM: No pallor , no icterus ENT EXAM: mucous membranes dry RESPIRATORY EXAM: Bilateral BS heard and diminished at the lower lung bases CARDIOVASCULAR EXAM: Tachycardia GI/ABDOMINAL EXAM: pt will not let me touch her abdomen, she will push my hands off. + tenderness in all quadrants EXTREMITIES EXAM: Left AKA NEUROLOGICAL EXAM: awake, not oriented, moving all 4 extremities. - Labs CBC & Chem 7: 05/08/20 06:53 05/08/20 14:41 Labs: Abnormal Lab Results - Last 24 Hours (Table) 05/07/20 05/07/20 05/07/20 Range/Units 14:46 16:42 19:08 WBC (3.8-10.6) k/uL Hgb (11.4-16.0) gm/dL MCHC (31.0-37.0) g/dL RDW (11.5-15.5) % Neutrophils # (1.3-7.7) k/uL Lymphocytes # (1.0-4.8) k/uL Sodium 154 H (137-145) mmol/L Chloride 127 H (98-107) mmol/L Carbon Dioxide 17 L (22-30) mmol/L BUN 75 H (7-17) mg/dL Creatinine 2.46 H (0.52-1.04) mg/dL Glucose 105 H (74-99) mg/dL POC Glucose (mg/dL) 116 H (75-99) mg/dL Plasma Lactic Acid Juan 2.3 H* (0.7-2.0) mmol/L C-Reactive Protein (<10.0) mg/L 05/08/20 05/08/20 Range/Units 06:53 06:53 WBC 18.2 H (3.8-10.6) k/uL Hgb 11.0 L (11.4-16.0) gm/dL MCHC 28.7 L (31.0-37.0) g/dL RDW 16.7 H (11.5-15.5) % Neutrophils # 16.6 H (1.3-7.7) k/uL Lymphocytes # 0.7 L (1.0-4.8) k/uL Sodium 156 H (137-145) mmol/L Chloride 131 H* (98-107) mmol/L Carbon Dioxide 16 L (22-30) mmol/L BUN 66 H (7-17) mg/dL Creatinine 1.87 H (0.52-1.04) mg/dL Glucose (74-99) mg/dL POC Glucose (mg/dL) (75-99) mg/dL Plasma Lactic Acid Juan (0.7-2.0) mmol/L C-Reactive Protein 169.1 H (<10.0) mg/L Assessment and Plan Assessment: ASSESSMENT Acute metabolic encephalopathy Leukocytosis Hypernatremia Hyperkalemia Lactic acidosis Acute kidney injury Elevated troponins Elevated CPK level Moderate protein calorie malnutrition Elevated BNP History of COPD History of stroke Hypertension Hyperlipidemia Thyroid disorders Bilateral finger amputations Left lwosv-zcw-[id number] amputation Chronic debility PLAN: As per nursing staff report, the patient's daughter called and wants her mother to be in hospice care. We will continue with the current medication regimen and contact hospice services. Overall prognosis is very poor. Patient is a no code. Further recommendations to follow depending on the progress of the patient.
[2020-05-09 04:12] VITALS: RESP 20
--- NOTE | 2020-05-09 05:17 | PN ---
PROGRESS NOTE DATE OF SERVICE: 05/08/2020 REASON FOR FOLLOWUP: Leukocytosis, likely aspiration pneumonia. INTERVAL HISTORY: The patient is afebrile. She was slightly more awake and alert today; however, unable to provide any history. No vomiting or choking on the food or any diarrhea has been reported by the nursing staff PHYSICAL EXAMINATION: Blood pressure is 103/69 with a pulse of 107, temperature 99. She is 93% on room air. General description is an elderly female lying in bed in no distress. RESPIRATORY SYSTEM: Unlabored breathing, decreased breath sounds in the base, no wheeze. HEART: S1, S2. Regular rate and rhythm. ABDOMEN: Soft, no tenderness. LABS: Hemoglobin is 11.9, white count 18.2, BUN of 66, creatinine is 1.87. DIAGNOSTIC IMPRESSION AND PLAN: Patient with leukocytosis with likely aspiration pneumonia. The patient is currently covered with Zosyn to continue adjusting antibiotic further on the basis of clinical response and cultures. Continue with supportive care. MMODL / IJN: [id number] /
[2020-05-09] MEDS: CYANOCOBALAMIN 500 MCG TAB PO SCH (06:13)
[2020-05-09] MEDS: LEVOTHYROXINE 112 MCG TAB PO SCH (06:13)
[2020-05-09] MEDS: FOLIC ACID 1 MG TAB PO SCH (06:13)
[2020-05-09] MEDS: METOPROLOL TARTRATE 25 MG TAB PO SCH ×2 (06:13→16:10)
[2020-05-09] MEDS: MEGESTROL 400 MG/10 ML CUP PO SCH (06:13)
[2020-05-09] MEDS: SPIRONOLACTONE 25 MG TAB PO SCH (06:14)
[2020-05-09] MEDS: DEXTROSE 5% IN WATER 1,000 ML IV SCH (06:28)
[2020-05-09 08:14] LABS: Calcium 8.3 mg/dL (8.4-10.2); Potassium 3.8 mmol/L (3.5-5.1)
[2020-05-09] MEDS: HEPARIN SODIUM,PORCINE 5,000 UNIT/ML 1 ML VIAL SQ SCH ×2 (08:25→16:10)
[2020-05-09] MEDS: PANTOPRAZOLE 40 MG/10 ML VIAL IV SCH (08:25)
[2020-05-09] MEDS: PIPERACILLIN-TAZOBACTAM 3.375 GM in SODIUM CHLORIDE 0.9% 100 ML IVPB SCH (11:59)
[2020-05-09] MEDS ORDERED: DEXTROSE 5% IN WATER 1,000 ML with SODIUM BICARB (1 MEQ/ML) 100 ML IV SCH (12:00)
--- NOTE | 2020-05-09 12:33 | PN ---
PROGRESS NOTE Patient is seen for followup for hypernatremia, she is currently doing better. Patient is more awake. She is able to communicate. Her sodium is down to 148 from 156. She is maintained on D5W . PHYSICAL EXAMINATION: Blood pressure is 102/76, heart rate 87 per minute. she is afebrile. Examination of the heart S1, S2. Examination of lungs decreased breath sounds at bases. Abdomen is soft, nontender. No wheezing is heard exam of lower extremities shows no evidence of edema [employer]ER exam grossly intact. Patient moving all 4 extremities. No focal deficits noted. LABS: Show sodium 148, potassium 3.8, chloride 126. CO2 is 15, BUN 44, creatinine 1.4. ASSESSMENT: 1. Is the hypernatremia associated with free water deficit currently improving patient is maintained on D5W. She is also mildly acidotic I will change the IV fluids today. 2. Acute kidney injury prerenal currently improved. Continue with IV hydration. Continue to encourage increased oral intake. 3. Metabolic acidosis associated with renal failure non gap. Add IV bicarb. 4. Dementia was worse with worsening mentation at the time of admission. 5. Left below-knee amputation and a bilateral amputation of both of fingers on both hands. PLAN: Continue IV fluid switched to D5W with 2 amps of bicarb. Continue to hold off on the Zestril as blood pressure remains low. Encourage increased oral intake and fluid intake. MMODL / IJN: [id number] /
[2020-05-09] MEDS: ASPIRIN 81 MG PO SCH (16:10)
[2020-05-09] MEDS: CLOPIDOGREL 75 MG TAB PO SCH (16:10)
--- NOTE | 2020-05-09 16:11 | P.DS ---
Providers Date of admission: 05/07/20 11:31 Expected date of discharge: 05/09/20 Attending physician: Niurka Tarango Consults: 05/07/20 11:28 Consult Physician Urgent Consulting Provider: Keon Harmon Consult Reason/Comments: An STEMI, elevated troponin I, acute renal failure Do you want consulting provider notified?: Yes 05/07/20 11:29 Consult Physician Urgent Consulting Provider: Aydee Arriaza Consult Reason/Comments: Acute renal failure Do you want consulting provider notified?: Yes 05/07/20 15:50 Consult Physician Urgent Consulting Provider: Isaac Berry Consult Reason/Comments: Elevated lactic/rhabdo Do you want consulting provider notified?: Yes Primary care physician: Carrie Thomas [facility] Course: Ms. Olvera is a 70-year-old female with a past medical history of CVA, COPD, hypertension, hyperlipidemia, left AKA, bilateral finger amputations brought in from the [facility] with a chief complaint of decreased responsiveness. Patient is not able to provide any history and just mumbles. So most of the history is obtained from the ED notes and the nursing staff report. In the ER patient was found to have atrial fibrillation with rapid ventricular rate and was hypotensive. They gave her IV fluids and her blood pressure improved and tachycardia improved. Patient has been tested negative for Covid at the [facility] couple of days back. As per the ED notes, the patient's daughter requests that she would be a NO CODE. In the ER, patient's vitals improved slightly after the IV fluids. Patient had a CAT scan of her head in the ER, negative for any acute intracranial hemorrhage, old lacunar infarcts and encephalomalacia chest x-ray showing hazy airspace opacities, to consider COVID-19 viral infection. EKG showing accelerated junctional rhythm. On reviewing the patient's labs her lactic acid was 2.3 decreased to 1.8. On reviewing her labs her sodium was 150,5.6, chloride 120, bicarb 18, BUN 84, creatinine 3.03. Troponin 0 0.140. Hospital course - patient was started on Zosyn for possible intra-abdominal infection as the patient was having abdominal pain. Blood cultures and urine cultures were obtained. Patient was continued on IV fluids, her creatinine improved from 3 at admission to 1.4 today. Her hyponatremia also improved from 156-148. As per discussion with daughter her mentation is almost getting back to her baseline. Her daughter is present at the bedside and wants her mother to be under hospice care. She does not want her to be continued on any further care other than her regular medications that she has been taking at the [facility]. So the patient is being sent back to the facility today. 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 APPEARANCE: awake, no respiratory distress. HEAD EXAM: atraumatic, normocephalic, normal inspection EYE EXAM: No pallor , no icterus ENT EXAM: mucous membranes dry RESPIRATORY EXAM: Bilateral BS heard and diminished at the lower lung bases CARDIOVASCULAR EXAM: Tachycardia GI/ABDOMINAL EXAM: non tender and non distended EXTREMITIES EXAM: Left AKA NEUROLOGICAL EXAM: awake, not oriented, moving all 4 extremities. DISCHARGE DIAGNOSIS Acute metabolic encephalopathy Leukocytosis Hypernatremia Hyperkalemia Lactic acidosis Acute kidney injury Elevated troponins Elevated CPK level Moderate protein calorie malnutrition Elevated BNP History of COPD History of stroke Hypertension Hyperlipidemia Thyroid disorders Bilateral finger amputations Left dzphj-fmb-hzwe amputation Chronic debility Follow-up: Patient is being sent to her facility with hospice care. More than 35 minutes spent with the discharge of the patient. Patient Condition at Discharge: Serious Plan - Discharge Summary Discharge Rx Participant: No New Discharge Prescriptions: Continue Levothyroxine Sodium [Synthroid] 112 mcg PO DAILY@0700 Atorvastatin Calcium [Lipitor] 40 mg PO HS@1999 Acetaminophen Tab [Tylenol] 325 mg PO Q4HR PRN PRN Reason: Fever And/ Or Pain lisinopriL [Zestril] 5 mg PO DAILY@0600 Metoprolol Tartrate [Lopressor] 25 mg PO BID@0700,1600 Cyanocobalamin [Vitamin B-12] 500 mcg PO DAILY@0600 Lansoprazole [Prevacid] 15 mg PO DAILY@0700 Megestrol Acetate 400 mg PO DAILY@0700 Folic Acid 0.4 mg PO DAILY@0600 Clopidogrel Bisulfate [Plavix] 75 mg PO DAILY@1400 Spironolactone [Aldactone] 25 mg PO DAILY@0700 Aspirin 81 mg PO DAILY@1400 Discharge Medication List Atorvastatin Calcium [Lipitor] 40 mg PO HS@199902/01/20 [History] Levothyroxine Sodium [Synthroid] 112 mcg PO DAILY@0702/01/20 [History] Acetaminophen Tab [Tylenol] 325 mg PO Q4HR PRN 05/07/20 [History] Aspirin 81 mg PO DAILY@1400 05/07/20 [History] Clopidogrel Bisulfate [Plavix] 75 mg PO DAILY@1400 05/07/20 [History] Cyanocobalamin [Vitamin B-12] 500 mcg PO DAILY@0605/07/20 [History] Folic Acid 0.4 mg PO DAILY@0605/07/20 [History] Lansoprazole [Prevacid] 15 mg PO DAILY@0705/07/20 [History] Megestrol Acetate 400 mg PO DAILY@0705/07/20 [History] Metoprolol Tartrate [Lopressor] 25 mg PO BID@0700,1600 05/07/20 [History] Spironolactone [Aldactone] 25 mg PO DAILY@0705/07/20 [History] lisinopriL [Zestril] 5 mg PO DAILY@0605/07/20 [History] Follow up Appointment(s)/Referral(s): Carrie Thomas MD [Primary Care Provider] - 1-2 days Discharge Disposition: TRANSFER TO SNF/ECF
[2020-05-09 16:37] VITALS: BP 111/71; PULSE 97; TEMP 97.8
--- NOTE | 2020-05-10 13:37 | CDI ---
Documentation Clarification Form Date: 05/10/20 From: Shahla Charles CCS Phone: If you have a question about this query, please contact Sharon Boyd, [employer] Operator at [phone] between 8am and 5pm. Admit Date: 05/07/20 Discharge Date:05/09/20 Patient Name: Indira Olvera Visit Number: [id number] ATTENTION: The Clinical Documentation Specialists (CDI) and [facility] Coding Staff appreciate your assistance in clarifying documentation. Please respond to the clarification below the line at the bottom and electronically sign. The CDI & [facility] Coding staff will review the response and follow-up if needed. Please note: Queries are made part of the Legal Health Record. If you have any questions, please contact the author of this message via ITS. Dear Dr. Tarango, Conflicting documentation has been found in the medical record: ID Consult and PNs document: patient presented to the hospital with decreased level of consciousness in this patient who noticed to have elevated white count which is likely multifactorial With concern for possible pneumonia versus UTI Patient with leukocytosis with likely aspiration pneumonia.The patient is currently covered with Zosyn DS documents: Patient was started on Zosyn for possible intra-abdominal infection as the patient was having abdominal pain. History/Risk Factors: PENNY, Metabolic Encephalopathy, Malnutrition, Acidosis Clinical Indicators: Elevated WBC, Acidosis, Encephalopathy, Abdominal tenderness, Hypotension, Hypoxemia Labs: WBC 17.9, 18.2- Lactic Acid 2.9, 2.5- Neutrophils 15.9, 16.6 C-Xray: Multifocal hazy airspace opacities, with primary differential consideration given to Covid [address]: There is some atelectasis and infiltrate at the lung bases that is new compared to old exam. Mild bilateral perinephric edema of uncertain significance.Unchanged.No renal obstruction. Sigmoid diverticulosis with some subtle changes of mild colitis or diverticulitis of the proximal sigmoid colon. Treatment: In your opinion, what is the most clinically appropriate diagnosis for this patient? Aspiration Pneumonia Pneumonia (type if known) Urinary Tract Infection Abdominal Infection (site if known) Other explanation of clinical findings Unable to determine (no explanation for clinical findings) Unable to determine MTDD
== END 2020-05-09 18:29 | DRG 682 ==
LOC: EC 08:35 → 3SCARD 11:31
PROVIDERS: ADMIT Internal Medicine; ATTEND Internal Medicine
DX: N17.0 Acute kidney failure with tubular necrosis (principal); G93.41 Metabolic encephalopathy; J69.0 Pneumonitis due to inhalation of food and vomit; E87.0 Hyperosmolality and hypernatremia; E44.0 Moderate protein-calorie malnutrition; F05 Delirium due to known physiological condition; M62.82 Rhabdomyolysis; E87.2 Acidosis; Z20.828 Contact with and (suspected) exposure to other viral communicable diseases; I95.9 Hypotension, unspecified; F03.90 Unspecified dementia, unspecified severity, without behavioral disturbance, psychotic disturbance, mood disturbance, and anxiety; Z89.612 Acquired absence of left leg above knee; I48.91 Unspecified atrial fibrillation; J44.9 Chronic obstructive pulmonary disease, unspecified; I69.320 Aphasia following cerebral infarction; E86.0 Dehydration; R09.02 Hypoxemia; E87.5 Hyperkalemia; I10 Essential (primary) hypertension; E78.5 Hyperlipidemia, unspecified; R53.81 Other malaise; F32.9 Major depressive disorder, single episode, unspecified; F41.9 Anxiety disorder, unspecified; Z66 Do not resuscitate; R77.8 Other specified abnormalities of plasma proteins; R32 Unspecified urinary incontinence; E03.9 Hypothyroidism, unspecified; Z51.5 Encounter for palliative care; E86.1 Hypovolemia; Z68.23 Body mass index [BMI] 23.0-23.9, adult; I25.2 Old myocardial infarction; Z79.899 Other long term (current) drug therapy; Z79.890 Hormone replacement therapy; Z79.82 Long term (current) use of aspirin; Z79.02 Long term (current) use of antithrombotics/antiplatelets; Z89.022 Acquired absence of left finger(s); Z89.021 Acquired absence of right finger(s); Z87.891 Personal history of nicotine dependence; Z83.79 Family history of other diseases of the digestive system
CPT/HCPCS: 36415; 70450; 71045; 74176; 80048; 80053; 82550; 83605; 83735; 83880; 84145; 84295; 84484; 85025; 85610; 85730; 86140; 87635; 93005; 96360; 96361; 99291